=== PATIENT | male | born 1950 | race Caucasian/White ===

== ENCOUNTER → 2016-05-15 | Outpatient (CLI) | payer MEDICARE ==
--- NOTE | 2016-05-15 14:33 | XR ---
EXAMINATION TYPE: XR Hip Bilateral Complete, XR knee complete bilateral DATE OF EXAM: 05/15/2016 1:28 PM COMPARISON: NONE HISTORY: 65 year-old male bilateral hip and knee pain TECHNIQUE: 2 views each hip and 3 views each knee FINDINGS: Hips: There is mild joint space narrowing at both hips with subchondral sclerosis along the acetabular side of the joint. Marginal spurring within the right hip is also noted. No acute fracture, subluxation, or dislocation. Some degenerative vacuum seen at both SI joints with posterior lumbar fusion hardware . Knees: There is suggestion of mild tricompartmental degenerative spurring on both sides with small bilateral knee joint effusions. There appears to be mild narrowing of medial compartment joint space on the ri ght. Surgical clips along the medial aspect of the distal left thigh and knee from prior saphenous ve in graft harvesting. No acute fracture, subluxation, or dislocation. Vascular calcifications within t he popliteal arteries. IMPRESSION: 1. Hips: Mild bilateral hip osteoarthrosis, right greater than left. Additional degenerative vacuum a t the SI joints. No acute osseous abnormality seen. 2. Knees: Mild tricompartmental degenerative spurring though with suggestion of probably mild to mod erate joint space narrowing in the right medial compartment. The degree of joint space loss could be better evaluated with weightbearing view. Nonspecific small knee joint effusions. No acute osseous ab normality seen.
== END ==
LOC: RADXRMAIN 12:08
PROVIDERS: ATTEND Family Medicine
DX: M16.0 Bilateral primary osteoarthritis of hip (principal); M25.461 Effusion, right knee; M25.462 Effusion, left knee
CPT/HCPCS: 73521

== ENCOUNTER → 2016-08-14 | Outpatient (CLI) | payer MEDICARE ==
[2016-08-14 11:18] LABS: ALT 40 U/L (21-72); AST 26 U/L (17-59); Alkaline Phosphatase 81 U/L (38-126); Anion Gap 10 mmol/L; Blood Urea Nitrogen 18 mg/dL (9-20); Calcium 9.3 mg/dL (8.4-10.2); Carbon Dioxide 28 mmol/L (22-30); Chloride 100 mmol/L (98-107); Cholesterol 104 mg/dL (<200); Glucose 161 mg/dL (74-99); HDL Cholesterol 37 mg/dL (40-60); Non-African American GFR(MDRD) >60 (>60 ml/min/1.73 sqM); Potassium 4.6 mmol/L (3.5-5.1); Sodium 138 mmol/L (137-145); Total Bilirubin 0.7 mg/dL (0.2-1.3); Total Protein 6.7 g/dL (6.3-8.2); Triglycerides 96 mg/dL (<150)
[2016-08-14 15:07] LABS: Urine Creatinine 84.2 mg/dL
== END | disposition home or self-care (01) ==
LOC: LABWHC1 09:58
PROVIDERS: ATTEND Internal Medicine Endocrinology, Diabetes & Metabolism
DX: E11.65 Type 2 diabetes mellitus with hyperglycemia (principal)
CPT/HCPCS: 36415; 80053; 80061; 82043; 82570; 84443

== ENCOUNTER → 2016-10-24 | Outpatient (CLI) | payer MEDICARE ==
[2016-10-24 11:20] LABS: Blood Urea Nitrogen 19 mg/dL (9-20); Non-African American GFR(MDRD) >60 (>60 ml/min/1.73 sqM)
== END | disposition home or self-care (01) ==
LOC: LABWHC1 10:34
PROVIDERS: ATTEND Orthopaedic Surgery Orthopaedic Surgery of the Spine
DX: Z01.812 Encounter for preprocedural laboratory examination (principal); N28.9 Disorder of kidney and ureter, unspecified
CPT/HCPCS: 36415; 82565; 84520

== ENCOUNTER → 2017-06-22 | Outpatient (CLI) | payer MEDICARE ==
[2017-06-22 13:41] LABS: Blood Urea Nitrogen 16 mg/dL (9-20)
--- NOTE | 2017-06-22 15:36 | CT ---
EXAMINATION TYPE: CT cervical spine wo/w con DATE OF EXAM: 06/22/2017 COMPARISON: Plain film 12/09/2014 HISTORY: Patient complains of chronic neck pain with radiation to the extremities. CT DLP: 2101 mGycm. Automated Exposure Control for Dose Reduction was Utilized. TECHNIQUE: CT scan of the cervical spine is obtained without contrast, axial images are obtained, sa gittal and coronal reformatted images are also reviewed. FINDINGS: Cervical spine is visualized in its entirety from C1 through upper thoracic levels, demonst rates stable appearance, cervical vertebral bodies show preserved height, minimal anterolisthesis gra de 1 C3-4, there is multilevel spondylosis and loss of disc height is greatest at C3-4, C6-7. There i s extensive facet arthropathy change. There is a spinal curvature. Review of axial images shows multilevel foraminal encroachment, bilateral encroachment is present at C3-4 due to lateral extension endplate disc complex. Left-sided foraminal encroachment present at C4- 5. Bilateral foraminal encroachment present at C6-7 due to lateral extension of endplate disc complex . No significant spinal stenosis evident. Calcification present along the vertebral arteries. No abnormal enhancement. IMPRESSION: Degenerative disc disease, facet arthropathy, multilevel foraminal encroachment as descri bed.
--- NOTE | 2017-06-22 15:45 | CT ---
EXAMINATION TYPE: CT lumbar spine wo/w con DATE OF EXAM: 06/22/2017 COMPARISON: NONE HISTORY: Patient complains of chronic low back pain with radiation to the extremities. CT DLP: 4896.1 mGycm Automated exposure control for dose reduction was used. CONTRAST: CT scan of the lumbar is performed with IV Contrast, patient injected with 100 cc mL of Isovue [address] of the lumbar spine was performed. Bone and soft tissue window settings are submitted as well as coronal and sagittal reconstructions. FINDINGS: Patient shows postoperative change status post posterior fusion at L2-L5. There is mild spinal curvat ure present. Loss of disc height is present at intervertebral levels, vacuum phenomenon is also prese nt at L1-2, T12-L1. Loss of disc height also present L5-S1. Anterolisthesis grade 1 present at L1-2, retrolisthesis grade 1 L3-4. There is multilevel spondylosis present. Donor site is present at the po sterior right ilium. Multilevel laminectomy change. No abnormal enhancement following contrast administration. L1-L2: The listhesis combined with marked facet arthropathy with hypertrophic change results in sever e spinal stenosis, there may be a slight broad-based posterior disc bulge also contributing causing a trefoil appearance of the thecal sac, no significant foraminal encroachment. L2-L3: Hypertrophic changes present at the facets. No significant foraminal encroachment on the left, there may be some right-sided foraminal encroachment due to lateral extension of disc which appears to be partially calcified. Trefoil appearance of the thecal sac is present. This results in mild to m oderate spinal stenosis. L3-L4: Facet arthropathy changes present encroaching on the lateral recesses. No significant spinal s tenosis. No definite foraminal encroachment or sizable disc herniation. L4-L5: Hypertrophic changes present at the facets. No significant central canal stenosis, lateral ext ension of endplate disc complex does cause some foraminal encroachment is mild anterior mass effect o n the thecal sac. There is some laminectomy change present. L5-S1: Lateral extension endplate disc complex results in foraminal encroachment, no significant cent ral canal stenosis. IMPRESSION: Spinal stenosis is greatest at L1-2. Multilevel postop change, degenerative disc disease, facet arthr opathy and foraminal encroachment.
== END | disposition home or self-care (01) ==
LOC: RADCTMAIN 12:50
PROVIDERS: ATTEND Anesthesiology Pain Medicine
DX: M50.30 Other cervical disc degeneration, unspecified cervical region (principal); M46.92 Unspecified inflammatory spondylopathy, cervical region; M51.36 Other intervertebral disc degeneration, lumbar region; M46.96 Unspecified inflammatory spondylopathy, lumbar region; M48.061 Spinal stenosis, lumbar region without neurogenic claudication; Z98.890 Other specified postprocedural states
CPT/HCPCS: 82565; 84520; 72127; 72133; 36415; Q9967

== ENCOUNTER → 2018-04-26 | Outpatient (CLI) | payer MEDICARE ==
[2018-04-26 19:49] LABS: Albumin 4.1 g/dL (3.80-4.90); Albumin/Globulin Ratio 1.71 (1.60-3.17); Anion Gap 5.2 mmol/L (4.00-12.00); Calcium 9.3 mg/dL (8.7-10.3); Carbon Dioxide 30.8 mmol/L (21.6-31.8); Globulin 2.4 g/dL (1.6-3.3); LDL Cholesterol,Calculated 104.4 mg/dL (0.0-131.0); Potassium 5.4 mmol/L (3.5-5.5); Total Bilirubin 0.6 mg/dL (0.3-1.2); Total Protein 6.5 g/dL (6.2-8.2); VLDL Calculation 22.6 mg/dL (5.00-40.00)
[2018-04-26 22:33] LABS: Hemoglobin A1C 6.8 % (4.0-6.0)
== END ==
LOC: LABWHC1 11:21
PROVIDERS: ATTEND Internal Medicine Endocrinology, Diabetes & Metabolism
DX: E11.65 Type 2 diabetes mellitus with hyperglycemia (principal)
CPT/HCPCS: 36415; 80053; 80061; 82043; 82570; 83036; 84443

== ENCOUNTER 2023-01-14 13:25 | Observation (INO) | payer MEDICARE ==
--- NOTE | 2023-01-14 14:48 | ED ---
General Adult HPI - General Chief complaint: Shortness of Breath Stated complaint: sob, coughing, congestion Time Seen by Provider: 01/14/23 14:31 Source: patient, RN notes reviewed, old records reviewed Mode of arrival: ambulatory Limitations: no limitations - History of Present Illness Initial comments: 72-year-old male with increased dyspnea. Patient has had chronic cough daily with some chest congestion. He's noted worsening bilateral lower extremity swelling and worsening dyspnea. He was started on 40 mg of Lasix by the primary care without improvement. No central chest pain. No fever. - Related Data Home Medications Medication Instructions Recorded Confirmed Aspirin 325 mg PO QAM 06/24/13 06/03/15 Mometasone Furoate [Nasonex] 1 spray NASAL DAILY 06/24/13 06/03/15 allopurinoL [Zyloprim] 100 mg PO DAILY 06/24/13 06/03/15 atenoloL [Tenormin] 25 mg PO QAM 06/24/13 06/03/15 oxyCODONE ER [OxyCONTIN] 80 mg PO BID 06/24/13 06/03/15 Atorvastatin [Lipitor] 80 mg PO DAILY 05/05/15 06/03/15 Baclofen [Lioresal] 10 mg PO TID 05/05/15 06/03/15 Desloratadine/Pseudoephedrine 1 tab PO BID 05/05/15 06/03/15 [Clarinex-D 12 Hour Tablet] Diazepam [Valium] 20 mg PO HS PRN 05/05/15 06/03/15 Goldbond Diabetic Cream 1 applicate TOPICAL TID 05/05/15 06/03/15 Insulin Aspart [Novolog] 100 unit SQ-PUMP CONTINUOUS 05/05/15 06/03/15 Losartan Potassium [Cozaar] 100 mg PO QAM 05/05/15 06/03/15 Magnesium 200 mg PO BID 05/05/15 06/03/15 rOPINIRole HCL [Requip] 3 mg PO HS 05/05/15 06/03/15 Cholecalciferol [Vitamin D3] 1,000 unit PO DAILY 05/27/15 06/03/15 Fluticasone Nasal [place] [Flonase 1 spray EA NOSTRIL DAILY 05/27/15 06/03/15 Nasal [place]] Previous Rx's Medication Instructions Recorded Meclizine [Antivert] 25 mg PO TID #21 tab 05/30/15 Ondansetron Odt [Zofran ODT] 4 mg PO Q8HR PRN #10 tab 05/30/15 Doxycycline Hyclate 100 mg PO BID #10 tab 06/03/15 HYDROcodone/APAP 10-325MG [[place] 1 - 2 tab PO Q4-6H PRN #90 tab 06/04/15 10-325] Allergies Allergy/AdvReac Type Severity Reaction Status Date / Time No Known Allergies Allergy Verified 01/14/23 13:56 Review of Systems ROS Statement: Those systems with pertinent positive or pertinent negative responses have been documented in the HPI. ROS Other: All systems not noted in ROS Statement are negative. Past Medical History Past Medical History: Diabetes Mellitus, Hypertension Additional Past Medical History / Comment(s): vertigo, insulin pump Last Myocardial Infarction Date:: 1989 History of Any Multi-Drug Resistant Organisms: None Reported Past Surgical History: Appendectomy, Back Surgery, Coronary Bypass/CABG, Joint Replacement, Orthopedic Surgery, Tonsillectomy Additional Past Surgical History / Comment(s): HAS HAD ATTEMPTED SEVERAL COLONOSCOPIES IN THE PAST MONTHS, HOWEVER, BOWEL WAS NOT TOTALLY CLEAN. 06-03-15 total rt shoulder Past Anesthesia/Blood Transfusion Reactions: No Reported Reaction Past Psychological History: No Psychological Hx Reported Smoking Status: Former smoker Past Alcohol Use History: Occasional Past Drug Use History: None Reported - Past Family History Mother Family Medical History: Cancer Additional Family Medical History / Comment(s): breast bowel liver ca Father Family Medical History: Myocardial Infarction ([place]) Additional Family Medical History / Comment(s): first mi at age 32 and w/3rd mi at age 44 General Exam Limitations: no limitations General appearance: alert, in no apparent distress Head exam: Present: atraumatic, normocephalic Eye exam: Present: normal appearance, PERRL ENT exam: Present: normal exam Neck exam: Present: normal inspection. Absent: tenderness, meningismus Respiratory exam: Present: wheezes, decreased breath sounds. Absent: respiratory distress Cardiovascular Exam: Present: regular rate, normal rhythm GI/Abdominal exam: Present: soft. Absent: distended, tenderness, guarding Extremities exam: Present: pedal edema Neurological exam: Present: alert, oriented X3, CN II-XII intact. Absent: motor sensory deficit Psychiatric exam: Present: normal affect, normal mood Skin exam: Present: warm, dry, intact Course Vital Signs 01/14/23 13:53 Temperature 98.4 F Pulse Rate 77 Respiratory 20 Rate Blood Pressure 109/67 O2 Sat by Pulse 95 Oximetry Medical Decision Making - Medical Decision Making Was pt. sent in by a medical professional or institution (CELESTINO Ayala, SCRATCHER TENDER, urgent care, hospital, or assisted...) When possible be specific @ -No Did you speak to anyone other than the patient for history (EMS, parent, family, police, friend...)? What history was obtained from this source @ -No Did you review nursing and triage notes (agree or disagree)? Why? @ -I reviewed and agree with nursing and triage notes Were old charts reviewed (outside hosp., previous admission, EMS record, old EKG, old radiological studies, urgent care reports/EKG's, assisted records)? Report findings @ -No old charts were reviewed Differential Diagnosis (chest pain, altered mental status, abdominal pain women, abdominal pain men, vaginal bleeding, weakness, fever, dyspnea, syncope, headache, dizziness, GI bleed, back pain, seizure, CVA, palpatations, mental health, musculoskeletal)? @ -Differential Dyspnea: Coronary syndrome, arrhythmia, tamponade, asthma, COPD, pulmonary embolism, pneumonia, pneumothorax, pulmonary effusion, anaphylaxis, diabetic ketoacidosis, flailed chest, pulmonary contusion, diaphragmatic rupture, anemia, neuromuscular, this is not meant to be an all-inclusive list. EKG interpreted by me (3pts min.). @ -Sinus rhythm with first-degree AV block, low voltage no ST segment elevation rate of 81, PA interval 222, QRS duration 113 X-rays interpreted by me (1pt min.). @ -[Chest x-ray showing bilateral pulmonary edema consistent with CHF. CT interpreted by me (1pt min.). @ -None done U/S interpreted by me (1pt. min.). @ -None done What testing was considered but not performed or refused? (CT, X-rays, U/S, labs)? Why? @ -None What meds were considered but not given or refused? Why? @ -None Did you discuss the management of the patient with other professionals (professionals i.e. CELESTINO Ayala, SCRATCHER TENDER, lab, RT, psych nurse, social problems specialist, yard pipe grader, teacher, college service officer, case repairer)? Give summary @ -No Was smoking cessation discussed for >3mins.? @ -No Was critical care preformed (if so, how long)? @ -No Were there social determinants of health that impacted care today? How? (Homelessness, low income, unemployed, alcoholism, drug addiction, transportation, low edu. Level, literacy, decrease access to med. care, detention, rehab)? @ -No Was there de-escalation of care discussed even if they declined (Discuss DNR or withdrawal of care, Hospice)? DNR status @ -No What co-morbidities impacted this encounter? (DM, HTN, Smoking, COPD, CAD, Cancer, CVA, ARF, Chemo, Hep., AIDS, mental health diagnosis, sleep apnea, morbid obesity)? @ -CHF, coronary artery disease Was patient admitted / discharged? Hospital course, mention meds given and route, prescriptions, significant lab abnormalities, going to OR and other pertinent info. @ -[72-year-old male with increased dyspnea, chronic cough. Patient has i ncreased bilateral lower extremity edema. Oral Lasix has not improved his symptoms. Chest x-ray concerning for CHF. Patient BNP is elevated at 1400 and he has a minimally elevated troponin at 0.07 suspect this is from CHF. This level will be trended. He will be admitted for IV diuresis and echo as well as cardiology consultation. Case discussed with Dr. Sahni who will admit. Undiagnosed new problem with uncertain prognosis? @ -No Drug Therapy requiring intensive monitoring for toxicity (Heparin, Nitro, Insulin, Cardizem)? @ -No Were any procedures done? @ -No Diagnosis/symptom? @ CHF Acute, or Chronic, or Acute on Chronic? @ Acute Uncomplicated (without systemic symptoms) or Complicated (systemic symptoms)? @ -default Side effects of treatment? @ -No Exacerbation, Progression, or Severe Exacerbation? @ -No Poses a threat to life or bodily function? How? (Chest pain, [place], [place], pneumonia, PE, COPD, DKA, ARF, appy, cholecystitis, CVA, Diverticulitis, Homicidal, Suicidal, threat to staff... and all critical care pts) @ -yes, respiratory failure - Lab Data Result diagrams: 01/14/23 15:02 01/14/23 15:02 Lab Results 01/14/23 01/14/23 01/14/23 Range/Units 14:37 15:02 15:02 WBC 8.4 (3.8-10.6) k/uL RBC 4.53 (4.30-5.90) m/uL Hgb 13.8 (13.0-17.5) gm/dL Hct 42.4 (39.0-53.0) % MCV 93.8 (80.0-100.0) fL MCH 30.5 (25.0-35.0) pg MCHC 32.5 (31.0-37.0) g/dL RDW 13.8 (11.5-15.5) % Plt Count 171 (150-450) k/uL MPV 7.5 Neutrophils % 74 % Lymphocytes % 12 % Monocytes % 10 % Eosinophils % 1 % Basophils % 0 % Neutrophils # 6.2 (1.3-7.7) k/uL Lymphocytes # 1.0 (1.0-4.8) k/uL Monocytes # 0.8 (0-1.0) k/uL Eosinophils # 0.1 (0-0.7) k/uL Basophils # 0.0 (0-0.2) k/uL Hypochromasia Slight PT 11.9 (10.0-12.5) sec INR 1.1 (<1.2) APTT 27.0 (22.0-30.0) sec Sodium (137-145) mmol/L Potassium (3.5-5.1) mmol/L Chloride (98-107) mmol/L Carbon Dioxide (22-30) mmol/L Anion Gap mmol/L BUN (9-20) mg/dL Creatinine (0.66-1.25) mg/dL Est GFR (CKD-EPI)AfAm (>60 ml/min/1.73 sqM) Est GFR (CKD-EPI)NonAf (>60 ml/min/1.73 sqM) Glucose (74-99) mg/dL Plasma Lactic Acid Xander (0.7-2.0) mmol/L Calcium (8.4-10.2) mg/dL Magnesium (1.6-2.3) mg/dL Total Bilirubin (0.2-1.3) mg/dL AST (17-59) U/L ALT (4-49) U/L Alkaline Phosphatase (38-126) U/L Troponin I (0.000-0.034) ng/mL NT-Pro-B Natriuret Pep pg/mL Total Protein (6.3-8.2) g/dL Albumin (3.5-5.0) g/dL Influenza Type A (PCR) Not Detected (Not Detectd) Influenza Type B (PCR) Not Detected (Not Detectd) RSV (PCR) Not Detected (Not Detectd) SARS-CoV-2 (PCR) Not Detected (Not Detectd) 01/14/23 01/14/23 01/14/23 Range/Units 15:02 15:02 15:02 WBC (3.8-10.6) k/uL RBC (4.30-5.90) m/uL Hgb (13.0-17.5) gm/dL Hct (39.0-53.0) % MCV (80.0-100.0) fL MCH (25.0-35.0) pg MCHC (31.0-37.0) g/dL RDW (11.5-15.5) % Plt Count (150-450) k/uL MPV Neutrophils % % Lymphocytes % % Monocytes % % Eosinophils % % Basophils % % Neutrophils # (1.3-7.7) k/uL Lymphocytes # (1.0-4.8) k/uL Monocytes # (0-1.0) k/uL Eosinophils # (0-0.7) k/uL Basophils # (0-0.2) k/uL Hypochromasia PT (10.0-12.5) sec INR (<1.2) APTT (22.0-30.0) sec Sodium 136 L (137-145) mmol/L Potassium 4.5 (3.5-5.1) mmol/L Chloride 96 L (98-107) mmol/L Carbon Dioxide 31 H (22-30) mmol/L Anion Gap 9 mmol/L BUN 18 (9-20) mg/dL Creatinine 0.98 (0.66-1.25) mg/dL Est GFR (CKD-EPI)AfAm 88 (>60 ml/min/1.73 sqM) Est GFR (CKD-EPI)NonAf 76 (>60 ml/min/1.73 sqM) Glucose 106 H (74-99) mg/dL Plasma Lactic Acid Xander 0.9 (0.7-2.0) mmol/L Calcium 8.9 (8.4-10.2) mg/dL Magnesium 1.9 (1.6-2.3) mg/dL Total Bilirubin 1.0 (0.2-1.3) mg/dL AST 66 H (17-59) U/L ALT 69 H (4-49) U/L Alkaline Phosphatase 133 H (38-126) U/L Troponin I 0.070 H* (0.000-0.034) ng/mL NT-Pro-B Natriuret Pep 1400 pg/mL Total Protein 7.0 (6.3-8.2) g/dL Albumin 3.7 (3.5-5.0) g/dL Influenza Type A (PCR) (Not Detectd) Influenza Type B (PCR) (Not Detectd) RSV (PCR) (Not Detectd) SARS-CoV-2 (PCR) (Not Detectd) Disposition Clinical Impression: Congestive heart failure Disposition: ADMITTED IP TO THIS HOSP Condition: Stable Is patient prescribed a controlled substance at d/c from ED?: No Referrals: Olvin Palmer DO [Primary Care Provider] - 1-2 days Time of Disposition: 16:26
[2023-01-14 15:25] LABS: Basophils % (A) 0 %; Eosinophils # (A) 0.1 k/uL (0-0.7); Eosinophils % (A) 1 %; HCT 42.4 % (39.0-53.0); HGB 13.8 gm/dL (13.0-17.5); Hypochromasia Slight; Lymphocytes % (A) 12 %; MCH 30.5 pg (25.0-35.0); MCHC 32.5 g/dL (31.0-37.0); MCV 93.8 fL (80.0-100.0); Mean Platelet Volume 7.5; Monocytes # (A) 0.8 k/uL (0-1.0); Monocytes % (A) 10 %; Neutrophils # (A) 6.2 k/uL (1.3-7.7); Neutrophils % (A) 74 %; Platelet Count 171 k/uL (150-450); RBC 4.53 m/uL (4.30-5.90); RDW 13.8 % (11.5-15.5); WBC 8.4 k/uL (3.8-10.6)
[2023-01-14 15:32] LABS: INR 1.1 (<1.2); Prothrombin Time 11.9 sec (10.0-12.5)
[2023-01-14 15:35] LABS: ALT 69 U/L (4-49); AST 66 U/L (17-59); African American GFR (CKD) 88 (>60 ml/min/1.73 sqM); Albumin 3.7 g/dL (3.5-5.0); Alkaline Phosphatase 133 U/L (38-126); Anion Gap 9 mmol/L; Blood Urea Nitrogen 18 mg/dL (9-20); Calcium 8.9 mg/dL (8.4-10.2); Carbon Dioxide 31 mmol/L (22-30); Chloride 96 mmol/L (98-107); Glucose 106 mg/dL (74-99); Magnesium 1.9 mg/dL (1.6-2.3); Non-African American GFR(CKD) 76 (>60 ml/min/1.73 sqM); Potassium 4.5 mmol/L (3.5-5.1); Sodium 136 mmol/L (137-145)
[2023-01-14 15:43] LABS: NT-Pro-B-Type Natriuretic Pept 1400 pg/mL
[2023-01-14] MEDS ORDERED: FUROSEMIDE 10 MG/ML 4 ML VIAL IV STA (15:56)
[2023-01-14] MEDS ORDERED: ACETAMINOPHEN TAB 325 MG TAB PO PRN (16:22)
[2023-01-14] MEDS ORDERED: NALOXONE 0.4 MG/ML 1 ML VIAL IV PRN (16:22)
[2023-01-14] MEDS ORDERED: ASPIRIN 325 MG TAB PO STA (16:22)
--- NOTE | 2023-01-14 16:28 | XR ---
EXAMINATION TYPE: XR chest 2V DATE OF EXAM: 01/14/2023 2:17 PM CLINICAL INDICATION:Male, 72 years old with history of TERI; [facility] COMPARISON: 12/26/2021 TECHNIQUE: XR chest 2V. Frontal PA and lateral views of the chest. FINDINGS: Lines/Tubes: None. Heart/mediastinum: Cardiomediastinal silhouette margins are partially obscured. Heart size is mildly to moderately enlarged. Aorta appears mildly tortuous. Single-lead cardiac conduction device overl cheryl the left hemithorax with lead projecting over the right ventricle. Sternotomy wires, second from the top broken but not significantly displaced. Pulmonary vascularity: Pulmonary vascular congestion. Increased interstitial markings can be seen wit h edema or pneumonitis, superimposed on chronic changes. Lungs/Pleura: Lungs appear hyperinflated with interstitial coarsening, findings suggestive of COPD/em physema. There is no evidence of pleural effusion, focal consolidation, or pneumothorax. Musculoskeletal: No acute osseous abnormality demonstrated in the limits of the exam. Mild degenerat tom changes. Other findings: None. IMPRESSION: Cardiomegaly and postoperative changes. Pulmonary vascular congestion with some interstitial edema/pneumonitis, superimposed on chronic tristan es. Correlate for mild CHF.
[2023-01-14 18:08] LABS: Glucose,Whole Blood 209 mg/dL (70-110)
[2023-01-14] MEDS: FUROSEMIDE 10 MG/ML 4 ML VIAL IV SCH (20:14)
[2023-01-14] MEDS ORDERED: ALBUTEROL HFA INHALER INHALATION PRN (20:41)
[2023-01-14] MEDS ORDERED: INSULIN LISPRO (For Pump) 100 UNIT/ML VIAL SQ-PUMP SCH (20:45)
[2023-01-14] MEDS ORDERED: DEXTROSE 50% SYRINGE 50 ML IVP PRN ×2 (20:56)
--- NOTE | 2023-01-14 21:03 | P.HPIM ---
History of Present Illness H&P Date: 01/14/23 Chief Complaint: TERI Patient is a 72-year-old male with a past medical history of coronary artery disease close post quadruple CABG, hypertension, diabetes type 2 insulin-depe ndent insulin pump, history of back surgery and chronic pain, restless leg syndrome and prior history of smoking presents to ER with complaints of cough, difficulty breathing and also worsening leg swelling for the past 2 weeks. Patient states that he has been having exertional dyspnea units walking to the bathroom. Patient has been having symptoms for the past 2 weeks. Patient was seen by his primary care physician and was started on Lasix 40 mg daily but without much improvement. Patient denies any complaints of chest pain. No nausea vomiting or diaphoresis. No dizziness or lightheadedness. No fever. No sputum production. Denies any recent illnesses Patient follows with his infrastructure solutions architect at [facility]. Patient has not seen his infrastructure solutions architect recently. Chest x-ray on admission showed cardiomegaly and postoperative changes. Pulmonary vascular congestion with some interstitial edema/pneumonitis superimposed on chronic changes. Correlate for mild CHF. EKG showed sinus rhythm with first-degree AV block. Low QRS voltage. Laboratory data showed WBC 8.4 hemoglobin 13.8 and platelets 171, sodium 136 potassium 4.5 chloride 96 bicarb is 31 BUN 18 and creatinine 0.98 and blood sugar is 106 AST 66 ALT 69 alk phos 133 troponin 0.070 and 0.070 and proBNP 1400 albumin 3.7 Influenza A, B, RSV and COVID-19 PCR not detected. Review of Systems Constitutional: Patient denies any fever or chills . no Generalized weakness. Abdomen: Patient denied any nausea or vomiting or abd. pain Cardiovascular: Patient denies any chest pain. Patient does have short of breath no palpitations. Positive for leg swelling. Respiratory: patient complains of cough. No sputum production. Patient does have shortness of breath. Neurologic: Patient denied any numbness or tingling or headache. Musculoskeletal: Patient denies any complaints of joint swelling or deformity. Skin: Negative Psychiatric: Negative Endocrine: No heat or cold intolerance. recent weight gain. Genitourinary: No dysuria or hematuria. All other 14 point ROS negative except the above Past Medical History Past Medical History: Diabetes Mellitus, Hypertension Additional Past Medical History / Comment(s): vertigo, insulin pump Last Myocardial Infarction Date:: 1989 History of Any Multi-Drug Resistant Organisms: None Reported Past Surgical History: Appendectomy, Back Surgery, Coronary Bypass/CABG, Joint Replacement, Orthopedic Surgery, Tonsillectomy Additional Past Surgical History / Comment(s): HAS HAD ATTEMPTED SEVERAL CO LONOSCOPIES IN THE PAST MONTHS, HOWEVER, BOWEL WAS NOT TOTALLY CLEAN. 06-03-15 total rt shoulder Past Anesthesia/Blood Transfusion Reactions: No Reported Reaction Past Psychological History: No Psychological Hx Reported Smoking Status: Former smoker Past Alcohol Use History: Occasional Past Drug Use History: None Reported - Past Family History Mother Family Medical History: Cancer Additional Family Medical History / Comment(s): breast bowel liver ca Father Family Medical History: Myocardial Infarction ([place]) Additional Family Medical History / Comment(s): first mi at age 32 and w/3rd mi at age 44 Medications and Allergies Home Medications Medication Instructions Recorded Confirmed Type allopurinoL [Zyloprim] 100 mg PO DAILY 06/24/13 01/14/23 History Atorvastatin [Lipitor] 80 mg PO DAILY 05/05/15 01/14/23 History Baclofen [Lioresal] 10 mg PO TID 05/05/15 01/14/23 History Diazepam [Valium] 10 mg PO BID PRN 05/05/15 01/14/23 History Losartan Potassium [Cozaar] 100 mg PO DAILY 05/05/15 01/14/23 History rOPINIRole HCL [Requip] 3 mg PO BID 05/05/15 01/14/23 History Albuterol Inhaler [Ventolin Hfa 1 - 2 puff INHALATION RT-Q6H PRN 01/14/23 01/14/23 History Inhaler] Clopidogrel [Plavix] 75 mg PO DAILY 01/14/23 01/14/23 History Furosemide [Lasix] 40 mg PO DAILY 01/14/23 01/14/23 History INSULIN LISPRO (For Pump) [humaLOG 0.01 units SQ-PUMP CONTINUOUS 01/14/23 01/14/23 History (For Pump)] Insulin Lispro [humaLOG Kwikpen] 1 - 25 unit SQ TID-W/MEALS PRN 01/14/23 01/14/23 History LORazepam [Ativan] 1 mg PO BID PRN 01/14/23 01/14/23 History Magnesium Oxide [Salomon] 500 mg PO BID 01/14/23 01/14/23 History Mupirocin Calcium 2% Cream 1 applic TOPICAL BID PRN 01/14/23 01/14/23 History [Bactroban 2% Cream] Pentoxifylline [TRENtal] 400 mg PO AC-BID 01/14/23 01/14/23 History Ranolazine [Ranexa] 500 mg PO BID 01/14/23 01/14/23 History Spironolactone [Aldactone] 25 mg PO DAILY 01/14/23 01/14/23 History Tamsulosin [Flomax] 0.4 mg PO BID 01/14/23 01/14/23 History Triamcinolone 0.1% Lotion [Kenalog 1 applic TOPICAL BID PRN 01/14/23 01/14/23 History 0.1% Lotion] Allergies Allergy/AdvReac Type Severity Reaction Status Date / Time No Known Allergies Allergy Verified 01/14/23 18:25 Physical Exam Vitals: Vital Signs Temp Pulse Resp BP Pulse Ox 01/14/23 13:53 98.4 F 77 20 109/67 95 Intake and Output 01/14/23 01/14/23 01/14/23 06:59 14:59 22:59 Other: Weight 151.046 kg PHYSICAL EXAMINATION: Patient is lying in the bed comfortably, no acute distress, awake alert and oriented.. HEENT: Normocephalic. Neck is supple. Pupils reactive. Nostrils clear. Oral cavity is moist. Neck reveals no JVD, carotid bruits, or thyromegaly. CHEST EXAMINATION: Trachea is central. Symmetrical expansion. Scattered coarse sounds. No wheezing. Nonlabored breathing.. CARDIAC: Normal S1, S2 with no gallops. No murmurs ABDOMEN: Soft. Bowel sounds present. Nontender. No organomegaly. No abdominal bruits. Extremities: Bilateral lower extremity 3+ edema. No clubbing or cyanosis Neurologically awake, alert, oriented x3 with well-coordinated movements. No focal deficits noted Skin: No rash or skin lesions. Psychiatric: Coperative. Nonsuicidal, Musculoskeletal: No joint swelling or deformity. Normal range of motion. Results CBC & Chem 7: 01/14/23 15:02 01/14/23 15:02 Labs: Abnormal Lab Results - Last 24 Hours (Table) 01/14/23 01/14/23 Range/Units 15:02 15:02 Sodium 136 L (137-145) mmol/L Chloride 96 L (98-107) mmol/L Carbon Dioxide 31 H (22-30) mmol/L Glucose 106 H (74-99) mg/dL AST 66 H (17-59) U/L ALT 69 H (4-49) U/L Alkaline Phosphatase 133 H (38-126) U/L Troponin I 0.070 H* (0.000-0.034) ng/mL Thrombosis Risk Factor Assmnt - DVT/VTE Prophylaxis DVT/VTE Prophylaxis: Pharmacologic Prophylaxis ordered Assessment and Plan Assessment: Acute CHF. EF not known. Chest x-ray showed vascular congestion elevated BNP level and leg swelling. Worsening shortness of breath and exertional dyspnea and cough secondary to above Mildly elevated troponin level Transaminitis Coronary artery history of quadruple CABG Diabetes type 2 insulin-dependent on insulin pump Hypertension Chronic pain History of gout Restless leg syndrome Morbid obesity BMI 45.2 DVT prophylaxis with heparin subcu Plan: Patient will be continued on daily monitoring. Continue with IV Lasix 40 mg twice daily and monitor renal function. Serial troponins. 2D echocardiogram was ordered. Ultrasound liver due to elevated liver enzymes Continue with insulin pump and insulin sliding scale. Continue with home medication including recoup and follow-up closely. Cardiology was consulted for evaluation. Time with Patient: Greater than 30
[2023-01-14] MEDS: RANOLAZINE 500 MG TAB.ER.12H PO SCH (21:07)
[2023-01-14] MEDS: TAMSULOSIN 0.4 MG CAP.ER.24H PO SCH (21:08)
[2023-01-14] MEDS: MAGNESIUM OXIDE 400 MG TAB PO SCH (21:08)
[2023-01-14] MEDS: BACLOFEN 10 MG TAB PO SCH (21:08)
[2023-01-14] MEDS: INSULIN ASPART (NovoLOG) 100 UNIT/ML VIAL SQ SCH (21:10)
[2023-01-14] MEDS: HEPARIN SODIUM,PORCINE 5,000 UNIT/ML 1 ML VIAL SQ SCH (23:35)
[2023-01-15 04:56] VITALS: TEMP 97.5
[2023-01-15 05:58] LABS: Glucose,Whole Blood 143 mg/dL (70-110)
[2023-01-15] MEDS: PENTOXIFYLLINE 400 MG TABLET.ER PO SCH ×2 (06:41→09:17)
[2023-01-15 06:43] LABS: HCT 42.3 % (39.0-53.0); HGB 13.6 gm/dL (13.0-17.5); Hypochromasia Slight; MCH 29.9 pg (25.0-35.0); MCHC 32.1 g/dL (31.0-37.0); MCV 93.1 fL (80.0-100.0); Mean Platelet Volume 7.5; Platelet Count 164 k/uL (150-450); RBC 4.55 m/uL (4.30-5.90); RDW 13.9 % (11.5-15.5); WBC 6.1 k/uL (3.8-10.6)
[2023-01-15] MEDS: INSULIN ASPART (NovoLOG) 100 UNIT/ML VIAL SQ SCH (06:52)
[2023-01-15 06:53] LABS: Band Neutrophils % 2 %; Lymphocytes # (M) 1.46 k/uL (1.0-4.8); Monocytes # (M) 0.67 k/uL (0-1.0); Neutrophils % (M) 63 %; Nucleated Red Blood Cells 0 /100 WBC (0-0); Total Cells Counted 100
[2023-01-15 06:59] LABS: ALT 59 U/L (4-49); AST 48 U/L (17-59); African American GFR (CKD) 89 (>60 ml/min/1.73 sqM); Albumin 3.3 g/dL (3.5-5.0); Alkaline Phosphatase 122 U/L (38-126); Bilirubin, Delta 0.1 mg/dL (0.0-0.2); Bilirubin,Unconjugated 0.6 mg/dL (0.0-1.1); Blood Urea Nitrogen 19 mg/dL (9-20); Calcium 8.7 mg/dL (8.4-10.2); Carbon Dioxide 30 mmol/L (22-30); Chloride 98 mmol/L (98-107); Glucose 158 mg/dL (74-99); Non-African American GFR(CKD) 77 (>60 ml/min/1.73 sqM); Potassium 4.3 mmol/L (3.5-5.1); Total Bilirubin 0.7 mg/dL (0.2-1.3); Total Protein 6.5 g/dL (6.3-8.2)
[2023-01-15 07:00] LABS: Anion Gap 7 mmol/L; Sodium 135 mmol/L (137-145)
--- NOTE | 2023-01-15 07:24 | US ---
EXAMINATION TYPE: US liver DATE OF EXAM: 01/14/2023 COMPARISON: NONE CLINICAL INDICATION: Male, 72 years old with history of elevated liver enzymes; Elevated LFT's TECHNIQUE: Multiple sonographic images of the right upper quadrant are obtained. FINDINGS: EXAM MEASUREMENTS: Liver Length: 20.5 cm Gallbladder Wall: 0.4 cm CBD: 0.3 cm Right Kidney: 10.7 x 6.5 x 6.3 cm MEAT PROCESSOR NOTES: Morbidly obese pt, difficulty ambulating, difficult exam Pancreas: Obscured by bowel gas Liver: Enlarged, mildly heterogeneous Gallbladder: Entire lumen appeared filled with gallstones, wall borderline thickened. No surrounding fluid. Evidence for sonographic Sparrow's sign: No CBD: wnl Right Kidney: No evidence of hydro, lower pole gassed out IMPRESSION: 1. Prominent exam limitations as above. 2. Hepatomegaly at 20.5 cm. 3. The gallbladder appears to be packed with stones. Borderline wall thickening may reflect chronic c holecystitis. Sonographic Sparrow sign is reported absent. If further imaging assessment of the gallbl adder is desired, HIDA scan can be considered. 4. No biliary ductal dilatation.
[2023-01-15] MEDS ORDERED: LOSARTAN 50 MG TAB PO SCH (09:00)
[2023-01-15] MEDS ORDERED: SPIRONOLACTONE 25 MG TAB PO SCH (09:00)
[2023-01-15] MEDS ORDERED: CLOPIDOGREL 75 MG TAB PO SCH (09:00)
[2023-01-15] MEDS ORDERED: ATORVASTATIN 80 MG TAB PO SCH (09:00)
[2023-01-15] MEDS ORDERED: allopurinoL 100 MG TAB PO SCH (09:00)
[2023-01-15] MEDS ORDERED: ASPIRIN 81 MG PO SCH (09:00)
[2023-01-15] MEDS: TAMSULOSIN 0.4 MG CAP.ER.24H PO SCH (09:17)
[2023-01-15] MEDS: HEPARIN SODIUM,PORCINE 5,000 UNIT/ML 1 ML VIAL SQ SCH (09:17)
[2023-01-15] MEDS: FUROSEMIDE 10 MG/ML 4 ML VIAL IV SCH (09:17)
[2023-01-15] MEDS: RANOLAZINE 500 MG TAB.ER.12H PO SCH (09:17)
[2023-01-15] MEDS: MAGNESIUM OXIDE 400 MG TAB PO SCH (09:17)
[2023-01-15] MEDS: BACLOFEN 10 MG TAB PO SCH (09:17)
[2023-01-15 09:25] VITALS: BP 148/83; PULSE 70; RESP 20
--- NOTE | 2023-01-15 09:58 | P.CRDCN ---
History of Present Illness History of present illness: HISTORY OF PRESENT ILLNESS: This is a 72-year-old male with a past medical history significant for coronary artery disease with previous CABG, hypertension, hyperlipidemia, diabetes, back surgery with chronic pain, morbid obesity, and former nicotine dependence. Valeria elizabeth follows with a technical planner out of [facility]. We have been asked to see the patient in consultation for congestive heart failure. Patient examined at the bedside. Patient states he was started on an increased dose of lasix a few days ago due to increased lower extremity edema and shortness of breath. He continued to feel SOB despite increased Lasix. He also reports a frequent cough. Denies fever or chills. He is unsure of his last stress test or cardiac cath. He is unsure if he has a history of cardiomyopathy. He is currently sitting up in the chair and does not appear to be in distress. Vital signs are stable. * EKG reveals sinus mechanism with no signs of acute ischemia * Chest xray cardiomegaly and postoperative changes. Pulmonary vascular congestion with some interstitial edema, superimposed on chronic changes. Correlate for mild CHF. * Laboratory data: Troponin 0.070. 0.070. 0.052. ProBNP 1400. * Current home cardiac medications include Aldactone 25 mg daily, Plavix 75 mg daily, Ranexa 500 mg twice a day, Lasix 40 mg daily, losartan 100 mg daily, Lipitor 80 mg daily REVIEW OF SYSTEMS: At the time of my exam: CONSTITUTIONAL: Denies fever or chills. HEENT: Denies blurred vision, vision changes, or eye pain. Denies hemoptysis CARDIOVASCULAR: Denies chest pain. Denies orthopnea. Denies PND. Denies palpitations RESPIRATORY: Denies shortness of breath. GASTROINTESTINAL: Denies abdominal pain. Denies nausea or vomiting. HEMATOLOGIC: Denies bleeding disorders. GENITOURINARY: Denies any blood in urine. SKIN: Denies pruitis. Denies rash. PHYSICAL EXAM: VITAL SIGNS: Reviewed. GENERAL: Well-developed in no acute distress. HEENT: Head is normocephalic. Pupils are equal, round. Sclerae anicteric. Mucous membranes of the mouth are moist. Neck supple. No JVD or thyromegaly LUNGS: Respirations even and unlabored. Lungs essentially clear to auscultation bilaterally. HEART: Regular rate and rhythm. S1 and S2 heard. ABDOMEN: Soft. Nondistended. Nontender. EXTREMITIES: Normal range of motion. No clubbing or cyanosis. Peripheral pulses intact. 3+ bilateral lower extremity edema up into the thighs with mild erythema noted. NEUROLOGIC: Awake and alert. Oriented x 3. ASSESSMENT: Shortness of breath Acute heart failure, type unknown, echo pending Coronary artery disease with previous CABG 4 vessels Hypertension Hyperlipidemia Diabetes History of back surgery with chronic pain Morbid obesity Former nicotine dependence History of COPD History of Asbestos History of AICD implantation with previous ICD discharge (about 5 years ago per patient) PLAN: Obtain 2-D echo to assess cardiac structure and function Resume home cardiac medications Continue IV Lasix 40 mg every 12 hours Daily weights, accurate I&O, and monitor kidney function Patient is adamant about being discharged home today. Patient instructed on risks of leaving AMA and patient verbalized understanding. Further recommendations pending patient's course Nurse practitioner note has been reviewed by physician. Signing provider agrees with the documented findings, assessment, and plan of care. Past Medical History Past Medical History: Diabetes Mellitus, Hypertension Additional Past Medical History / Comment(s): vertigo, insulin pump Last Myocardial Infarction Date:: 1989 History of Any Multi-Drug Resistant Organisms: None Reported Past Surgical History: Appendectomy, Back Surgery, Coronary Bypass/CABG, Joint R eplacement, Orthopedic Surgery, Tonsillectomy Additional Past Surgical History / Comment(s): HAS HAD ATTEMPTED SEVERAL COLONOSCOPIES IN THE PAST MONTHS, HOWEVER, BOWEL WAS NOT TOTALLY CLEAN. 06-02- total rt shoulder Past Anesthesia/Blood Transfusion Reactions: No Reported Reaction Past Psychological History: No Psychological Hx Reported Smoking Status: Former smoker Past Alcohol Use History: Occasional Additional Past Alcohol Use History / Comment(s): STARTED SMOKING AT AGE 14 SMOKED ON AND OFF QUIT 2008 / SMOKED 1PPD Past Drug Use History: None Reported Additional Drug Use History / Comment(s): SMOKES AT NIGHT - Past Family History Mother Family Medical History: Cancer Additional Family Medical History / Comment(s): breast bowel liver ca Father Family Medical History: Myocardial Infarction ([place]) Additional Family Medical History / Comment(s): first mi at age 32 and w/3rd mi at age 44 Medications and Allergies Home Medications Medication Instructions Recorded Confirmed Type allopurinoL [Zyloprim] 100 mg PO DAILY 06/24/13 01/14/23 History Atorvastatin [Lipitor] 80 mg PO DAILY 05/05/15 01/14/23 History Baclofen [Lioresal] 10 mg PO TID 05/05/15 01/14/23 History Diazepam [Valium] 10 mg PO BID PRN 05/05/15 01/14/23 History Losartan Potassium [Cozaar] 100 mg PO DAILY 05/05/15 01/14/23 History rOPINIRole HCL [Requip] 3 mg PO BID 05/05/15 01/14/23 History Albuterol Inhaler [Ventolin Hfa 1 - 2 puff INHALATION RT-Q6H PRN 01/14/23 01/14/23 History Inhaler] Clopidogrel [Plavix] 75 mg PO DAILY 01/14/23 01/14/23 History Furosemide [Lasix] 40 mg PO DAILY 01/14/23 01/14/23 History INSULIN LISPRO (For Pump) [humaLOG 0.01 units SQ-PUMP CONTINUOUS 01/14/23 01/14/23 History (For Pump)] Insulin Lispro [humaLOG Kwikpen] 1 - 25 unit SQ TID-W/MEALS PRN 01/14/23 3 History LORazepam [Ativan] 1 mg PO BID PRN 01/14/23 01/14/23 History Magnesium Oxide [Salomon] 500 mg PO BID 01/14/23 01/14/23 History Mupirocin Calcium 2% Cream 1 applic TOPICAL BID PRN 01/14/23 01/14/23 History [Bactroban 2% Cream] Pentoxifylline [TRENtal] 400 mg PO AC-BID 01/14/23 01/14/23 History Ranolazine [Ranexa] 500 mg PO BID 01/14/23 01/14/23 History Spironolactone [Aldactone] 25 mg PO DAILY 01/14/23 01/14/23 History Tamsulosin [Flomax] 0.4 mg PO BID 01/14/23 01/14/23 History Triamcinolone 0.1% Lotion [Kenalog 1 applic TOPICAL BID PRN 01/14/23 01/14/23 History 0.1% Lotion] Allergies Allergy/AdvReac Type Severity Reaction Status Date / Time No Known Allergies Allergy Verified 01/14/23 18:25 Physical Exam Vitals: Vital Signs Temp Pulse Pulse Resp BP BP Pulse Ox 01/15/23 04:00 97.5 F L 89 18 135/81 94 L 01/15/23 02:00 87 19 01/14/23 23:30 98.2 F 87 18 154/77 95 01/14/23 22:43 98.1 F 81 16 122/78 95 01/14/23 20:15 98.2 F 90 18 110/76 97 01/14/23 13:53 98.4 F 77 20 109/67 95 Intake and Output 01/14/23 01/15/23 01/15/23 22:59 06:59 14:59 Other: Voiding Method Toilet # Voids 1 Weight 145.9 kg Results 01/15/23 06:05 01/15/23 06:05 Cardiac Enzymes 01/14/23 01/14/23 01/14/23 Range/Units 15:02 15:02 17:24 AST 66 H (17-59) U/L Troponin I 0.070 H* 0.070 H* (0.000-0.034) ng/mL 01/14/23 01/15/23 Range/Units 21:13 06:05 AST 48 (17-59) U/L Troponin I 0.052 H* (0.000-0.034) ng/mL Coagulation 01/14/23 Range/Units 15:02 PT 11.9 (10.0-12.5) sec APTT 27.0 (22.0-30.0) sec CBC 01/14/23 01/15/23 Range/Units 15:02 06:05 WBC 8.4 6.1 (3.8-10.6) k/uL RBC 4.53 4.55 (4.30-5.90) m/uL Hgb 13.8 13.6 (13.0-17.5) gm/dL Hct 42.4 42.3 (39.0-53.0) % Plt Count 171 164 (150-450) k/uL Comprehensive Metabolic Panel 01/14/23 01/15/23 Range/Units 15:02 06:05 Sodium 136 L 135 L (137-145) mmol/L Potassium 4.5 4.3 (3.5-5.1) mmol/L Chloride 96 L 98 (98-107) mmol/L Carbon Dioxide 31 H 30 (22-30) mmol/L BUN 18 19 (9-20) mg/dL Creatinine 0.98 0.97 (0.66-1.25) mg/dL Glucose 106 H 158 H (74-99) mg/dL Calcium 8.9 8.7 (8.4-10.2) mg/dL Unconjugated Bilirubin 0.6 (0.0-1.1) mg/dL AST 66 H 48 (17-59) U/L ALT 69 H 59 H (4-49) U/L Alkaline Phosphatase 133 H 122 (38-126) U/L Total Protein 7.0 6.5 (6.3-8.2) g/dL Albumin 3.7 3.3 L (3.5-5.0) g/dL Current Medications Generic Name Dose Route Start Last Admin Trade Name Freq PRN Reason Stop Dose Admin Acetaminophen 650 mg 01/14/23 16:22 Acetaminophen Tab 325 Mg Tab PO Q6HR PRN Mild Pain or Fever > 100.5 Albuterol Sulfate 2 puff 01/14/23 20:41 Albuterol Hfa Inhaler INHALATION RT-Q6H PRN Shortness Of Breath Allopurinol 100 mg 01/15/23 09:00 Allopurinol 100 Mg Tab PO DAILY [facility] Aspirin 81 mg 01/15/23 09:00 Aspirin 81 Mg PO DAILY [facility] Atorvastatin Calcium 80 mg 01/15/23 09:00 Atorvastatin 80 Mg Tab PO DAILY [facility] Baclofen 10 mg 01/14/23 22:00 01/14/23 21:08 Baclofen 10 Mg Tab PO 10 mg TID TRISH Administration Clopidogrel Bisulfate 75 mg 01/15/23 09:00 Clopidogrel 75 Mg Tab PO DAILY [facility] Dextrose/Water 25 ml 01/14/23 20:56 Dextrose 50% Syringe 50 Ml IVP PER PROTOCOL PRN Hypoglycemia Protocol Dextrose/Water 50 ml 01/14/23 20:56 Dextrose 50% Syringe 50 Ml IVP PER PROTOCOL PRN Hypoglycemia Protocol Furosemide 40 mg 01/14/23 21:00 01/14/23 20:14 Furosemide 10 Mg/Ml 4 Ml Vial IV 40 mg Q12HR TRISH Administration Heparin Sodium (Porcine) 5,000 unit 01/15/23 00:00 01/14/23 23:35 Heparin Sodium,Porcine 5,000 Unit/Ml 1 Ml Vial SQ 5,000 unit Q8HR TRISH Administration Insulin Aspart 0 unit 01/14/23 21:00 01/15/23 06:52 Insulin Aspart (Novolog) 100 Unit/Ml Vial SQ Not Given ACHS [facility] Protocol Insulin Human Lispro 0.01 unit 01/14/23 20:45 01/14/23 21:08 Insulin Lispro (For Pump) 100 Unit/Ml Vial SQ-PUMP Not Given CONTINUOUS [facility] Losartan Potassium 100 mg 01/15/23 09:00 Losartan 50 Mg Tab PO DAILY TRISH Magnesium Oxide 400 mg 01/14/23 21:00 01/14/23 21:08 Magnesium Oxide 400 Mg Tab PO 400 mg BID TRISH Administration Naloxone HCl 0.2 mg 01/14/23 16:22 Naloxone 0.4 Mg/Ml 1 Ml Vial IV Q2M PRN Opioid Reversal Pentoxifylline 400 mg 01/15/23 07:30 Pentoxifylline 400 Mg Tablet.Er PO AC-BID TRISH Ranolazine 500 mg 01/14/23 21:00 01/14/23 21:07 Ranolazine 500 Mg Tab.Er.12h PO 500 mg BID TRISH Administration Spironolactone 25 mg 01/15/23 09:00 Spironolactone 25 Mg Tab PO DAILY [facility] Tamsulosin HCl 0.4 mg 01/14/23 21:00 01/14/23 21:08 Tamsulosin 0.4 Mg Cap.Er.24h PO 0.4 mg BID TRISH Administration Intake and Output 01/14/23 01/15/23 01/15/23 22:59 06:59 14:59 Other: Voiding Method Toilet # Voids 1 Weight 145.9 kg 01/15/23 06:05 01/15/23 06:05
--- NOTE | 2023-01-15 13:47 | CA ---
Transthoracic Echo Report Name: Deshaun Lizarraga Age: 72 Gender: M : 1950 Exam Date: 01/15/2023 08:26 Exam Location: [facility] Ht (in): 72 Wt (lb): 333 Ordering Physician: Greg Weems MD Attending/Referring Phys: [id number], Dank Casing Cooker Erlinda Rodas [facility] Procedure CPT: Indications: chf Cardiac Hx: Technical Quality: Technically difficult study Contrast 1: Definity Total Dose (mL): 8 Contrast 2: Total Dose (mL): MEASUREMENTS (Male / Female) Normal Values 2D ECHO LV Diastolic Diameter PLAX 5.5 cm 4.2 - 5.9 / 3.9 - 5.3 cm LV Systolic Diameter PLAX 5.0 cm IVS Diastolic Thickness 1.0 cm 0.6 - 1.0 / 0.6 - 0.9 cm LVPW Diastolic Thickness 1.1 cm 0.6 - 1.0 / 0.6 - 0.9 cm LV Relative Wall Thickness 0.4 LVOT Diameter 2.1 cm LV Diastolic Volume MOD BP 149.1 cm??? 67 - 155 / 56 - 104 cm??? LV Systolic Volume MOD BP 93.4 cm??? 22 - 58 / 19 - 49 cm??? LV Ejection Fraction MOD BP 37.3 % >= 55 % LV Cardiac Index MOD BP 1741.8 cm???/min???m??? LV Diastolic Volume MOD 4C 149.6 cm??? LV Systolic Volume MOD 4C 97.5 cm??? LV Ejection Fraction MOD 4C 34.8 % LV Cardiac Index MOD 4C 1631.1 cm???/min???m??? LV Diastolic Length 4C 8.6 cm LV Systolic Length 4C 8.6 cm LV Diastolic Volume MOD 2C 148.0 cm??? LV Systolic Volume MOD 2C 84.0 cm??? LV Ejection Fraction MOD 2C 43.2 % LV Cardiac Index MOD 2C 2004.0 cm???/min???m??? LV Diastolic Length 2C 8.8 cm LV Systolic Length 2C 8.1 cm Ascending Aorta Diameter 3.4 cm M-MODE Aortic Root Diameter MM 3.1 cm LA Systolic Diameter MM 5.2 cm LA Ao Ratio MM 1.6 AV Cusp Separation MM 2.3 cm DOPPLER AV Peak Velocity 100.8 cm/s AV Peak Gradient 4.1 mmHg AV Mean Velocity 82.0 cm/s AV Mean Gradient 2.8 mmHg AV Velocity Time Integral 21.9 cm LVOT Peak Velocity 81.7 cm/s LVOT Peak Gradient 2.7 mmHg LVOT Velocity Time Integral 18.8 cm LVOT Stroke Volume 63.9 cm??? LVOT Stroke Volume Index 24.1 ml/m??? LVOT Cardiac Index 2000.9 cm???/min???m??? AV Area Cont Eq vti 2.9 cm??? AV Area Cont Eq pk 2.8 cm??? MR Peak Velocity 442.2 cm/s MR Peak Gradient 78.2 mmHg Mitral E Point Velocity 94.4 cm/s Mitral A Point Velocity 83.2 cm/s Mitral E to A Ratio 1.1 MV Deceleration Time 153.7 ms LV E' Lateral Velocity 6.3 cm/s Mitral E to LV E' Lateral Ratio 14.9 LV E' Septal Velocity 8.9 cm/s Mitral E to LV E' Septal Ratio 10.5 TR Peak Velocity 265.4 cm/s TR Peak Gradient 28.2 mmHg Right Atrial Pressure 15.0 mmHg Pulmonary Artery Systolic Pressu 43.2 mmHg Right Ventricular Systolic Press 43.2 mmHg FINDINGS Left Ventricle Moderately increased left ventricular diastolic volume. Severely reduced global LV systolic function. LVEF estimated at 30-35 Distal anterolateral and anteroapical wall hypokinesia Right Ventricle Severe right ventricular dilatation. Catheter/pacemaker wire in the right ventricular cavity. Moderate pulmonary hypertension. Right Atrium Severe right atrial dilatation. Left Atrium Severe left atrial dilatation. Mitral Valve Structurally normal mitral valve. Mild mitral regurgitation. Aortic Valve Trileaflet aortic valve. No aortic valve stenosis or regurgitation. Tricuspid Valve Structurally normal tricuspid valve. Mild tricuspid regurgitation. Pulmonic Valve Pulmonic valve not well visualized. Pericardium No pericardial effusion. Aorta Normal size aortic root and proximal ascending aorta. CONCLUSIONS Moderately increased left ventricular diastolic volume. Severely reduced global LV systolic function. LVEF estimated at 30-35 Distal anterolateral and anteroapical wall hypokinesia Dilated RV with signs of moderate pulmonary hypertension. RVSP estimated at 45 mmHg PPM wire noticed and RV Severe biatrial dilatation Dilated IVC with no respiratory collapse Previewed by: Dr Chuck Dominguez (Electronically Signed) Final Date: 15 January 2023 13:46
[2023-01-15 16:40] LABS: LDL Cholesterol,Calculated 32.3 mg/dL (0.0-131.0); VLDL Calculation 11.32 mg/dL (5.00-40.00)
--- NOTE | 2023-01-15 22:38 | P.DS ---
Providers Date of admission: 01/14/23 16:22 Attending physician: Morgan Sahni Consults: 01/14/23 16:22 Consult Physician Routine Consulting Provider: Ramona Rolle Consult Reason/Comments: CHF Do you want consulting provider notified?: Yes Primary care physician: [facility] Course: Final Diagnosis Acute CHF. EF not known. Chest x-ray showed vascular congestion elevated BNP level and leg swelling. 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 Was admitted for complaints of cough, difficulty breathing and also worsening leg swelling for the past 2 weeks. Patient states that he has been having exertional dyspnea units walking to the bathroom. Patient has been having symptoms for the past 2 weeks. Patient was seen by his primary care physician and was started on Lasix 40 mg daily but without much improvement. Cardiology was consulted and echocardiogram completed. Patient symptomatically felt better. Echocardiogram did come back showing severely reduced EF 30-35% with moderate pulmonary hypertension, dilated RV, severe biatrial dilatation, Dilated IVC with no respiratory collapse. There is catheter/pacemaker wire noted in the right ventricular cavity. Patient also had liver ultrasound completed revealing hepatomegaly 20.5 cm and entire lumen appeared filled with gallstones, wall borderline thickened which may reflect chronic cholecystitis. No biliary ductal dilation. Consider HIDA scan. LFTS were elevated on admission did improve. Procal normal. Hemoglobin A1C 7.9. Had troponin elevation. Left AMA 01/15/2023 before being seen by primary service. Wants to see his own precision devices inspector/tester. The impression and plan of care has been dictated by Palmira Salomon Nurse Practitioner as directed. Dr. Cem MD I have performed a history and physical examination and medical decision making of this patient, discussed the same with the dictator, and agree with the dictators assessment and plan as written, documented as a scribe. Based on total visit time, I have performed more than 50% of this visit. Plan - Discharge Summary Discharge Rx Participant: No New Discharge Prescriptions: No Action allopurinoL [Zyloprim] 100 mg PO DAILY rOPINIRole HCL [Requip] 3 mg PO BID Atorvastatin [Lipitor] 80 mg PO DAILY Diazepam [Valium] 10 mg PO BID PRN PRN Reason: SLEEP/ANXIETY Losartan Potassium [Cozaar] 100 mg PO DAILY Baclofen [Lioresal] 10 mg PO TID LORazepam [Ativan] 1 mg PO BID PRN PRN Reason: ANXIETY THAT RAISES SUGAR Ranolazine [Ranexa] 500 mg PO BID Tamsulosin [Flomax] 0.4 mg PO BID Triamcinolone 0.1% Lotion [Kenalog 0.1% Lotion] 1 applic TOPICAL BID PRN PRN Reason: Rash Mupirocin Calcium 2% Cream [Bactroban 2% Cream] 1 applic TOPICAL BID PRN PRN Reason: Rash Clopidogrel [Plavix] 75 mg PO DAILY Furosemide [Lasix] 40 mg PO DAILY Insulin Lispro [humaLOG Kwikpen] 1 - 25 unit SQ TID-W/MEALS PRN PRN Reason: PUMP FAILURE INSULIN LISPRO (For Pump) [humaLOG (For Pump)] 0.01 units SQ-PUMP CONTINUOUS Magnesium Oxide [Salomon] 500 mg PO BID Pentoxifylline [TRENtal] 400 mg PO AC-BID Spironolactone [Aldactone] 25 mg PO DAILY Albuterol Inhaler [Ventolin Hfa Inhaler] 1 - 2 puff INHALATION RT-Q6H PRN PRN Reason: Shortness Of Breath Discharge Medication List allopurinoL [Zyloprim] 100 mg PO DAILY 06/24/13 [History] Atorvastatin [Lipitor] 80 mg PO DAILY 05/05/15 [History] Baclofen [Lioresal] 10 mg PO TID 05/05/15 [History] Diazepam [Valium] 10 mg PO BID PRN 05/05/15 [History] Losartan Potassium [Cozaar] 100 mg PO DAILY 05/05/15 [History] rOPINIRole HCL [Requip] 3 mg PO BID 05/05/15 [History] Albuterol Inhaler [Ventolin Hfa Inhaler] 1 - 2 puff INHALATION RT-Q6H PRN 01/14/23 [History] Clopidogrel [Plavix] 75 mg PO DAILY 01/14/23 [History] Furosemide [Lasix] 40 mg PO DAILY 01/14/23 [History] INSULIN LISPRO (For Pump) [humaLOG (For Pump)] 0.01 units SQ-PUMP CONTINUOUS 01/14/23 [History] Insulin Lispro [humaLOG Kwikpen] 1 - 25 unit SQ TID-W/MEALS PRN 01/14/23 [History] LORazepam [Ativan] 1 mg PO BID PRN 01/14/23 [History] Magnesium Oxide [Salomon] 500 mg PO BID 01/14/23 [History] Mupirocin Calcium 2% Cream [Bactroban 2% Cream] 1 applic TOPICAL BID PRN 01/14/23 [History] Pentoxifylline [TRENtal] 400 mg PO AC-BID 01/14/23 [History] Ranolazine [Ranexa] 500 mg PO BID 01/14/23 [History] Spironolactone [Aldactone] 25 mg PO DAILY 01/14/23 [History] Tamsulosin [Flomax] 0.4 mg PO BID 01/14/23 [History] Triamcinolone 0.1% Lotion [Kenalog 0.1% Lotion] 1 applic TOPICAL BID PRN 01/14/23 [History] Follow up Appointment(s)/Referral(s): Olvin Palmer DO [Primary Care Provider] - 1-2 days Discharge Disposition: LEFT AGAINST MEDICAL ADVICE
== END 2023-01-15 10:49 | disposition left against medical advice (07) ==
LOC: EC 13:25 → 3SCARD 16:22
PROVIDERS: ADMIT Internal Medicine; ATTEND Internal Medicine
DX: I11.0 Hypertensive heart disease with heart failure (principal); I50.9 Heart failure, unspecified; I27.20 Pulmonary hypertension, unspecified; E11.9 Type 2 diabetes mellitus without complications; I44.0 Atrioventricular block, first degree; I25.10 Atherosclerotic heart disease of native coronary artery without angina pectoris; J98.4 Other disorders of lung; E78.5 Hyperlipidemia, unspecified; K80.20 Calculus of gallbladder without cholecystitis without obstruction; I25.2 Old myocardial infarction; M10.9 Gout, unspecified; G25.81 Restless legs syndrome; R74.01 Elevation of levels of liver transaminase levels; R16.0 Hepatomegaly, not elsewhere classified; Z53.29 Procedure and treatment not carried out because of patient's decision for other reasons; E66.01 Morbid (severe) obesity due to excess calories; Z68.42 Body mass index [BMI] 45.0-49.9, adult; G89.29 Other chronic pain; Z95.810 Presence of automatic (implantable) cardiac defibrillator; Z77.090 Contact with and (suspected) exposure to asbestos; Z11.52 Encounter for screening for COVID-19; Z79.02 Long term (current) use of antithrombotics/antiplatelets; Z79.82 Long term (current) use of aspirin; Z79.899 Other long term (current) drug therapy; Z79.4 Long term (current) use of insulin; Z95.1 Presence of aortocoronary bypass graft; Z96.41 Presence of insulin pump (external) (internal); Z87.891 Personal history of nicotine dependence; Z98.890 Other specified postprocedural states; Z90.49 Acquired absence of other specified parts of digestive tract; Z82.49 Family history of ischemic heart disease and other diseases of the circulatory system; Z80.0 Family history of malignant neoplasm of digestive organs; Z80.3 Family history of malignant neoplasm of breast
CPT/HCPCS: 96376 ×2; 96372 ×2; 96374; 99285; 36415; 93005; 83880; 80061; 80053; 80048; 80076; 83605; 83735; 84484; 85025 ×2; 85610; 85730; 83036; 84145; 87636; 71046; 76705; G0378 ×2; C8929; J1644 ×2; J1940 ×2; Q9957; 93306

== ENCOUNTER 2023-01-16 14:45 | Observation (INO) | payer MEDICARE ==
--- NOTE | 2023-01-16 14:51 | ED ---
General Adult HPI - General Source: patient, RN notes reviewed, old records reviewed Mode of arrival: ambulatory Limitations: no limitations <Hardy Carlisle - Last Filed: 01/16/23 14:50> - General Source: RN notes reviewed, old records reviewed Limitations: no limitations - History of Present Illness -: days(s) Location: abdomen Radiation: abdomen Severity scale (1-10): 7 Quality: sharp Consistency: constant, colicky Improves with: none Associated Symptoms: nausea/vomiting Treatments Prior to Arrival: none <Kody Obregon - Last Filed: 01/16/23 22:22> - General Stated complaint: Gallbladder Stones Time Seen by Provider: 01/16/23 14:50 - History of Present Illness Initial comments: 72-year-old male presents emergency Department with chief complaint of abdominal pain. Patient was following up with PCP today regarding his recent admission. Patient saw to have multiple stones of his gallbladder. He states he started noticing is having some discomfort but is intermittent. PCP told him come [facility] rgency Department if symptoms worsened. (Hardy Carlisle) This is a 72-year-old male to the emergency prior for evaluation of abdominal pain, recent diagnosis of gallstones during recent admission, patient had incidental finding of gallstones without abdominal pain then. Patient has recently noticed that is had about 2 weeks of episodic abdominal pain with severe abdominal pain today. Patient was seen by his Primary care sent to the emergency prior for evaluation (Kody Obregon) - Related Data Home Medications Medication Instructions Recorded Confirmed allopurinoL [Zyloprim] 100 mg PO DAILY 06/24/13 01/16/23 Atorvastatin [Lipitor] 80 mg PO DAILY 05/05/15 01/16/23 Baclofen [Lioresal] 10 mg PO TID 05/05/15 01/16/23 Diazepam [Valium] 10 mg PO BID PRN 05/05/15 01/16/23 Losartan Potassium [Cozaar] 100 mg PO DAILY 05/05/15 01/16/23 rOPINIRole HCL [Requip] 3 mg PO BID 05/05/15 01/16/23 Albuterol Inhaler [Ventolin Hfa 1 - 2 puff INHALATION RT-Q6H PRN 01/14/23 01/16/23 Inhaler] Clopidogrel [Plavix] 75 mg PO DAILY 01/14/23 01/16/23 Furosemide [Lasix] 40 mg PO DAILY 01/14/23 01/16/23 INSULIN LISPRO (For Pump) [humaLOG 0.01 units SQ-PUMP CONTINUOUS 01/14/23 01/16/23 (For Pump)] Insulin Lispro [humaLOG Kwikpen] 1 - 25 unit SQ TID-W/MEALS PRN 01/14/23 01/16/23 LORazepam [Ativan] 1 mg PO BID PRN 01/14/23 01/16/23 Magnesium Oxide [Salomon] 500 mg PO BID 01/14/23 01/16/23 Mupirocin Calcium 2% Cream 1 applic TOPICAL BID PRN 01/14/23 01/16/23 [Bactroban 2% Cream] Pentoxifylline [TRENtal] 400 mg PO AC-BID 01/14/23 01/16/23 Ranolazine [Ranexa] 500 mg PO BID 01/14/23 01/16/23 Spironolactone [Aldactone] 25 mg PO DAILY 01/14/23 01/16/23 Tamsulosin [Flomax] 0.4 mg PO BID 01/14/23 01/16/23 Triamcinolone 0.1% Lotion [Kenalog 1 applic TOPICAL BID PRN 01/14/23 01/16/23 0.1% Lotion] Sulfamethox-Tmp 800-160Mg [Bactrim 1 tab PO DIRECTED 01/16/23 01/16/23 DS 800-160 mg] Allergies Allergy/AdvReac Type Severity Reaction Status Date / Time No Known Allergies Allergy Verified 01/16/23 21:27 Review of Systems ROS Other: All systems not noted in ROS Statement are negative. <Hardy Carlisle - Last Filed: 01/16/23 14:50> ROS Other: All systems not noted in ROS Statement are negative. <Kody Obregon - Last Filed: 01/16/23 22:22> ROS Statement: Those systems with pertinent positive or pertinent negative responses have been documented in the HPI. Past Medical History Past Medical History: Diabetes Mellitus, Hypertension Additional Past Medical History / Comment(s): vertigo, insulin pump Last Myocardial Infarction Date:: 1989 History of Any Multi-Drug Resistant Organisms: None Reported Past Surgical History: Appendectomy, Back Surgery, Coronary Bypass/CABG, Joint Replacement, Orthopedic Surgery, Tonsillectomy Additional Past Surgical History / Comment(s): HAS HAD ATTEMPTED SEVERAL COLONOSCOPIES IN THE PAST MONTHS, HOWEVER, BOWEL WAS NOT TOTALLY CLEAN. 06-03-15 total rt shoulder Past Anesthesia/Blood Transfusion Reactions: No Reported Reaction Past Psychological History: No Psychological Hx Reported Smoking Status: Former smoker Past Alcohol Use History: Occasional Additional Past Alcohol Use History / Comment(s): STARTED SMOKING AT AGE 14 SMOKED ON AND OFF QUIT 2008 / SMOKED 1PPD Past Drug Use History: None Reported Additional Drug Use History / Comment(s): SMOKES AT NIGHT - Past Family History Mother Family Medical History: Cancer Additional Family Medical History / Comment(s): breast bowel liver ca Father Family Medical History: Myocardial Infarction (MS) Additional Family Medical History / Comment(s): first mi at age 32 and w/3rd mi at age 44 <Hardy Carlisle M - Last Filed: 01/16/23 14:50> General Exam <Hardy Carlisle - Last Filed: 01/16/23 14:50> General appearance: alert, in no apparent distress Head exam: Present: atraumatic, normocephalic, normal inspection Eye exam: Present: normal appearance, PERRL, EOMI. Absent: scleral icterus, conjunctival injection, periorbital swelling ENT exam: Present: normal exam, mucous membranes moist Neck exam: Present: normal inspection. Absent: tenderness, meningismus, lymphadenopathy Respiratory exam: Present: normal lung sounds bilaterally. Absent: respiratory distress, wheezes, rales, rhonchi, stridor Cardiovascular Exam: Present: regular rate, normal rhythm, normal heart sounds. Absent: systolic murmur, diastolic murmur, rubs, gallop, clicks GI/Abdominal exam: Present: distended, tenderness (Right upper quadrant tenderness), normal bowel sounds. Absent: guarding, rebound, rigid Extremities exam: Present: normal inspection, full ROM, normal capillary refill. Absent: tenderness, pedal edema, joint swelling, calf tenderness Back exam: Present: normal inspection Neurological exam: Present: alert, oriented X3, CN II-XII intact Psychiatric exam: Present: normal affect, normal mood Skin exam: Present: warm, dry, intact, normal color. Absent: rash <Kody Obregon - Last Filed: 01/16/23 22:22> - General Exam Comments Initial Comments: Visual Physical Exam Vital signs reviewed General: Well-appearing, nontoxic, no acute distress. Head: Normocephalic, atraumatic Eyes: PERRLA, EOMI ENT: Airway patent Chest: Nonlabored breathing Skin: No visual rash, normal skin tone Neuro: Alert and oriented 3 Musculoskeletal: No gross abnormalities (Hardy Carlisle) Course <Kody Obregon - Last Filed: 01/16/23 22:22> Vital Signs 01/16/23 15:17 Temperature 98.2 F Pulse Rate 92 Respiratory 18 Rate Blood Pressure 119/53 O2 Sat by Pulse 95 Oximetry - Reevaluation(s) Reevaluation #1: 01/16/23 20:44 Record is reviewed (Kody Obregon) Reevaluation #2: 01/16/23 20:46 Patient is informed of pain here in the emergency department (Kody Obregon) Reevaluation #3: 01/16/23 20:46 Patient informed results and questions answered (Kody Obregno) Reevaluation #4: 01/16/23 20:46 Was pt. sent in by a medical professional or institution (, PA, SUPERVISOR COLOR MAKING, urgent care, hospital, or alf...) When possible be specific @ -no Did you speak to anyone other than the patient for history (EMS, parent, family, police, friend...)? What history was obtained from this source @ -no Did you review nursing and triage notes (agree or disagree)? Why? @ -agree Are old charts reviewed (outside hosp., previous admission, EMS record, old EKG, old radiological studies, urgent care reports/EKG's, alf records)? Report findings @ -yes Differential Diagnosis (chest pain, altered mental status, abdominal pain women, abdominal pain men, vaginal bleeding, weakness, fever, dyspnea, syncope, headache, dizziness, GI bleed, back pain, seizure, CVA, palpatations, mental health, musculoskeletal)? @ -prior EKG interpreted by me (3pts min.). @ -yes X-rays interpreted by me (1pt min.). @ -yes CT interpreted by me (1pt min.). @ -no U/S interpreted by me (1pt. min.). @ -no What testing was considered but not performed or refused? (CT, X-rays, U/S, labs)? Why? @ -none What meds were considered but not given or refused? Why? @ -none Did you discuss the management of the patient with other professionals (professionals i.e. , PA, SUPERVISOR [employer]KING, lab, RT, psych nurse, social media developer, warehouse shipper, teacher, minesweeping officer, case management associate)? Give summary @ -no Was smoking cessation discussed for >3mins.? @ -no Was critical care preformed (if so, how long)? @ -no Were there social determinants of health that impacted care today? How? (Homelessness, low income, unemployed, alcoholism, drug addiction, transportation, low edu. Level, literacy, decrease access to med. care, skilled nursing, rehab)? @ -none Was there de-escalation of care discussed even if they declined (Discuss DNR or withdrawal of care, Hospice)? DNR status @ -no What co-morbidities impacted this encounter? (DM, HTN, Smoking, COPD, CAD, Cancer, CVA, ARF, Chemo, Hep., AIDS, mental health diagnosis, sleep apnea, morbid obesity)? @ -none Was patient admitted / discharged? Hospital course, mention meds given and route, prescriptions, significant lab abnormalities, going to OR and other pertinent info. @ - Undiagnosed new problem with uncertain prognosis? @ -no Drug Therapy requiring intensive monitoring for toxicity (Heparin, Nitro, Insulin, Cardizem)? @ -no Were any procedures done? @ -no Diagnosis/symptom? @ - Acute, or Chronic, or Acute on Chronic? @ -Acute Uncomplicated (without systemic symptoms) or Complicated (systemic symptoms)? @ -Complicated Side effects of treatment? @ -no Exacerbation, Progression, or Severe Exacerbation? @ -exacerbation Poses a threat to life or bodily function? How? (Chest pain, USA, MS, pneumonia, PE, COPD, DKA, ARF, appy, cholecystitis, CVA, Diverticulitis, Homicidal, Suici pj, threat to staff... and all critical care pts) @ -yes (Kody Obregon) Reevaluation #5: 01/16/23 20:46 Differential Abdominal Pain Men: Appendicitis, cholecystitis, diverticulosis, ischemic bowel, pancreatitis, hepatitis, UTI, gastroenteritis, AAA, incarcerated hernia, bowel obstruction, constipation, inflammatory bowel, hepatitis, peptic ulcer disease, splenic infarction, perforated viscus, testicular torsion, this is not meant to be an all-inclusive list (Kody Obregon) Medical Decision Making <Hardy Carlisle - Last Filed: 01/16/23 14:50> - Lab Data Result diagrams: 01/16/23 21:11 01/16/23 21:11 - Radiology Data Radiology results: report reviewed (US gallbladder positive for cholecystitis), image reviewed <Kody Obregon - Last Filed: 01/16/23 22:22> - Medical Decision Making I completed the quick note portion of this chart signed Hardy Carlisle PA-C (Hardy Carlisle) 72 male to the emergency department for evaluation, patient will be admitted for cholecystitis on antibiotics and pain control. (Kody Obregno) Disposition <Hardy Carlisle - Last Filed: 01/16/23 14:50> Is patient prescribed a controlled substance at d/c from ED?: No Time of Disposition: 20:40 <Kody Obregon - Last Filed: 01/16/23 22:22> Clinical Impression: Abdominal pain, Biliary colic, Cholecystitis Disposition: ADMITTED IP TO THIS HOSP Condition: Fair
--- NOTE | 2023-01-16 19:56 | US ---
EXAMINATION TYPE: US gallbladder DATE OF EXAM: 01/16/2023 COMPARISON: 01/14/23 CLINICAL INDICATION: Male, 72 years old with history of pain; RUQ pain. Hx of gallstones found 2 days ago TECHNIQUE: Multiple sonographic images of the right upper quadrant are obtained. FINDINGS: EXAM MEASUREMENTS: Liver Length: 17.2 cm Gallbladder Wall: 0.60 cm CBD: 0.36 cm Right Kidney: 10.9 x 4.9 x 7.1 cm Pancreas: Obscured by bowel gas Liver: Limited due to body habitus, no mass seen Gallbladder: Filled with gallstones, wall appears thickened Evidence for sonographic Sparrow's sign: No CBD: wnl Right Kidney: wnl IMPRESSION: Cholelithiasis with thickening of the bladder wall. Correlate for acute cholecystitis.
[2023-01-16] MEDS ORDERED: KETOROLAC 15 MG/ML 1 ML VIAL IVP STA (20:09)
[2023-01-16] MEDS ORDERED: ONDANSETRON 4 MG/2 ML VIAL IVP STA (20:09)
[2023-01-16] MEDS ORDERED: SODIUM CHLORIDE 0.9% 1,000 ML IV STA (20:09)
[2023-01-16] MEDS ORDERED: HYDROmorphone 0.5 MG/0.5 ML SYRINGE IVP STA (20:10)
[2023-01-16] MEDS ORDERED: AMPICILLIN-SULBACTAM 3 GM in SODIUM CHLORIDE 0.9% 100 ML IVPB STA (20:38)
[2023-01-16] MEDS ORDERED: ONDANSETRON 4 MG/2 ML VIAL IVP PRN (20:38)
[2023-01-16] MEDS ORDERED: HYDROmorphone 0.5 MG/0.5 ML SYRINGE IVP PRN (20:38)
[2023-01-16] MEDS ORDERED: NALOXONE 0.4 MG/ML 1 ML VIAL IV PRN (20:38)
[2023-01-16 21:28] LABS: Basophils % (A) 0 %; Eosinophils # (A) 0.1 k/uL (0-0.7); Eosinophils % (A) 2 %; HCT 45.8 % (39.0-53.0); HGB 14.5 gm/dL (13.0-17.5); Hypochromasia Slight; Lymphocytes # (A) 1.1 k/uL (1.0-4.8); Lymphocytes % (A) 19 %; MCH 29.7 pg (25.0-35.0); MCHC 31.7 g/dL (31.0-37.0); MCV 93.7 fL (80.0-100.0); Mean Platelet Volume 7.4; Monocytes # (A) 0.1 k/uL (0-1.0); Monocytes % (A) 2 %; Neutrophils # (A) 4.1 k/uL (1.3-7.7); Neutrophils % (A) 73 %; Platelet Count 184 k/uL (150-450); RBC 4.88 m/uL (4.30-5.90); RDW 13.6 % (11.5-15.5); WBC 5.6 k/uL (3.8-10.6)
[2023-01-16 21:40] LABS: ALT 51 U/L (4-49); AST 46 U/L (17-59); African American GFR (CKD) 81 (>60 ml/min/1.73 sqM); Albumin 3.9 g/dL (3.5-5.0); Alkaline Phosphatase 127 U/L (38-126); Amylase 62 U/L (30-110); Anion Gap 9 mmol/L; Blood Urea Nitrogen 22 mg/dL (9-20); Calcium 8.9 mg/dL (8.4-10.2); Carbon Dioxide 31 mmol/L (22-30); Chloride 95 mmol/L (98-107); Glucose 217 mg/dL (74-99); Lipase 165 U/L (23-300); Non-African American GFR(CKD) 70 (>60 ml/min/1.73 sqM); Potassium 4.2 mmol/L (3.5-5.1); Sodium 135 mmol/L (137-145); Total Bilirubin 0.7 mg/dL (0.2-1.3); Total Protein 7.3 g/dL (6.3-8.2)
[2023-01-16 22:23] LABS: INR 1.1 (<1.2); Partial Thromboplastin Time 27.2 sec (22.0-30.0); Prothrombin Time 11.6 sec (10.0-12.5)
[2023-01-16] MEDS: SODIUM CHLORIDE 0.9% 1,000 ML IV SCH (22:54)
[2023-01-17] MEDS: SODIUM CHLORIDE 0.9% 1,000 ML IV SCH ×2 (08:53→10:47)
[2023-01-17] MEDS ORDERED: MIDAZOLAM 2 MG/2 ML VIAL IVP ONE (09:09)
[2023-01-17 09:26] LABS: Glucose,Whole Blood 125 mg/dL (70-110)
--- NOTE | 2023-01-17 09:27 | P.ANPRN ---
Procedure Note - Anesthesia - Invasive Line Right Arterial Line Time Out Performed: Yes Date of Procedure: 01/17/23 Time of Procedure: 09:20 Location of Patient: PreOp Preparation: Sterile Prep Arterial Line Location: Radial Ultrasound Used: Yes Purpose - Visualization and Identification of Vasculature: Yes Image Stored and Saved: Yes Narrative: Central line placement per sterile protocol utilized.
--- NOTE | 2023-01-17 09:35 | P.CRDCN ---
History of Present Illness Consult date: 01/17/23 Reason for Consult (text): elevated troponin History of present illness: HISTORY OF PRESENT ILLNESS: This is a 72-year-old male follows with a negative cleaner out of [facility]. He has a past medical history of coronary artery disease with previous CABG, cardiomyopathy, hypertension, hyperlipidemia, diabetes, back surgery with chronic pain, morbid obesity, and former nicotine dependence. We have been called to the preop area for preop cardiac clearance regarding elevated troponin. Patient was recently in the hospital from . He was seen by cardiology at that time for acute heart failure but patient signed out AMA. Echocardiogram obtained at that time revealed EF of 30-35%, moderate pulmonary hypertension with RVSP 45 mmHg. Severe biatrial dilatation. Dilated IVC with no respiratory collapse. States that he left the hospital because he was very anxious but he followed up with his PCP and saw the results of his test and told the patient that he had gallbladder problem. Patient states he was trying to lay down yesterday and the abdominal pain became very severe and he was advised by his PCP to come in the hospital for further evaluation. Patient also gives history of a recent hospitalization at [facility] for cellulitis and lower extremity edema. At this time, patient denies having any chest pain and no shortness of breath. He has lower extremity edema who and redness which she states is at his baseline. Patient is on all appropriate medications except noted to not be on a beta josiane. Patient states he has been on metoprolol in the past but unsure when this may have been discontinued. EKG sinus rhythm with first-degree block, incomplete left bundle blackbox or evidence of old SD, PVCs, no signs of acute ischemia Gallbladder ultrasound revealed cholelithiasis with thickening of the bladder wall. Correlate for acute cholecystitis. CBC unremarkable. INR 1.1. Sodium 135, potassium 4.2, chloride 95, CO2 31, BUN 22 creatinine 1.05. Blood sugar 217. ALT 51, alkaline phosphatase 127. Troponin 0.055. Lipase 165. Troponins from 01/14/2023: 0.07, 0.07, 0.052. Chest xray 01/14/2023: cardiomegaly and postoperative changes. Pulmonary vascular congestion with some interstitial edema, superimposed on chronic changes. Correlate for mild CHF. Current home cardiac medications include Aldactone 25 mg daily, Plavix 75 mg daily, Ranexa 500 mg twice a day, Lasix 40 mg daily, losartan 100 mg daily, Lipitor 80 mg daily Cardiac catheterization performed following a positive stress test and IVD firing at [facility] on 02/03/[address] Joaquin Stock revealed triple- vessel coronary artery disease, anatomy grossly unchanged from 2018. Patent BAKER/LAD and SVG/OM. Patent stents in the [place] RCA and SVG/OM. IFR of the RCA 0.96, nonsignificant stenosis. Severe LV dysfunction of 30%. Patient was planned to continue on ARB, beta josiane and Aldactone and consider SGLT2 inhibitor. REVIEW OF SYSTEMS: At the time of my exam: CONSTITUTIONAL: Denies fever or chills. HEENT: Denies blurred vision, vision changes, or eye pain. Denies hemoptysis CARDIOVASCULAR: Denies chest pain. Denies orthopnea. Denies PND. Denies palpitations RESPIRATORY: Denies shortness of breath. GASTROINTESTINAL: Denies abdominal pain. Denies nausea or vomiting. HEMATOLOGIC: Denies bleeding disorders. GENITOURINARY: Denies any blood in urine. SKIN: Denies pruitis. Denies rash. PHYSICAL EXAM: VITAL SIGNS: Reviewed. GENERAL: Well-developed in no acute distress. HEENT: Head is normocephalic. Pupils are equal, round. Sclerae anicteric. Mucous membranes of the mouth are moist. Neck supple. No JVD or thyromegaly LUNGS: Respirations even and unlabored. Lungs essentially clear to auscultation bilaterally. HEART: Regular rate and rhythm. S1 and S2 heard. ABDOMEN: Soft. Nondistended. Nontender. EXTREMITIES: Normal range of motion. No clubbing or cyanosis. Peripheral puls es intact. 2+ bilateral lower extremity edema up into the thighs with mild erythema noted. NEUROLOGIC: Awake and alert. Oriented x 3. ASSESSMENT: Cholelithiasis Chronic systolic heart failure Coronary artery disease with previous CABG 4 vessels Hypertension Hyperlipidemia Diabetes History of back surgery with chronic pain Morbid obesity Former nicotine dependence History of COPD History of Asbestos History of AICD implantation with previous ICD discharge (about 5 years ago per patient) PLAN: Resume home cardiac medications Discussed with the patient as well as anesthesia the patient is at moderate to high risk for surgical intervention for gallbladder. Patient's heart failure, cardiomyopathy is optimized at this time. Patient verbalizes that he wishes to go through with surgery and understands his risks for complications. Further recommendations pending patient's course Nurse practitioner note has been reviewed by physician. Signing provider agrees with the documented findings, assessment, and plan of care. Past Medical History Past Medical History: Diabetes Mellitus, Hypertension Additional Past Medical History / Comment(s): vertigo, insulin pump Last Myocardial Infarction Date:: 1989 History of Any Multi-Drug Resistant Organisms: None Reported Past Surgical History: Appendectomy, Back Surgery, Coronary Bypass/CABG, Joint Replacement, Orthopedic Surgery, Tonsillectomy Additional Past Surgical History / Comment(s): HAS HAD ATTEMPTED SEVERAL COLONOSCOPIES IN THE PAST MONTHS, HOWEVER, BOWEL WAS NOT TOTALLY CLEAN. 06-03-15 total rt shoulder Past Anesthesia/Blood Transfusion Reactions: No Reported Reaction Past Psychological History: No Psychological Hx Reported Smoking Status: Former smoker Past Alcohol Use History: Occasional Past Drug Use History: None Reported - Past Family History Mother Family Medical History: Cancer Additional Family Medical History / Comment(s): breast bowel liver ca Father Family Medical History: Myocardial Infarction ([place]) Additional Family Medical History / Comment(s): first mi at age 32 and w/ 3rd mi at age 44 Medications and Allergies Home Medications Medication Instructions Recorded Confirmed Type allopurinoL [Zyloprim] 100 mg PO DAILY 06/24/13 01/16/23 History Atorvastatin [Lipitor] 80 mg PO DAILY 05/05/15 01/16/23 History Baclofen [Lioresal] 10 mg PO TID 05/05/15 01/16/23 History Diazepam [Valium] 10 mg PO BID PRN 05/05/15 01/16/23 History Losartan Potassium [Cozaar] 100 mg PO DAILY 05/05/15 01/16/23 History rOPINIRole HCL [Requip] 3 mg PO BID 05/05/15 01/16/23 History Albuterol Inhaler [Ventolin Hfa 1 - 2 puff INHALATION RT-Q6H PRN 01/14/23 01/16/23 History Inhaler] Clopidogrel [Plavix] 75 mg PO DAILY 01/14/23 01/16/23 History Furosemide [Lasix] 40 mg PO DAILY 01/14/23 01/16/23 History INSULIN LISPRO (For Pump) [humaLOG 0.01 units SQ-PUMP CONTINUOUS 01/14/23 01/16/23 History (For Pump)] Insulin Lispro [humaLOG Kwikpen] 1 - 25 unit SQ TID-W/MEALS PRN 01/14/23 01/16/23 History LORazepam [Ativan] 1 mg PO BID PRN 01/14/23 01/16/23 History Magnesium Oxide [Salomon] 500 mg PO BID 01/14/23 01/16/23 History Mupirocin Calcium 2% Cream 1 applic TOPICAL BID PRN 01/14/23 01/16/23 History [Bactroban 2% Cream] Pentoxifylline [TRENtal] 400 mg PO AC-BID 01/14/23 01/16/23 History Ranolazine [Ranexa] 500 mg PO BID 01/14/23 01/16/23 History Spironolactone [Aldactone] 25 mg PO DAILY 01/14/23 01/16/23 History Tamsulosin [Flomax] 0.4 mg PO BID 01/14/23 01/16/23 History Triamcinolone 0.1% Lotion [Kenalog 1 applic TOPICAL BID PRN 01/14/23 01/16/23 History 0.1% Lotion] Sulfamethox-Tmp 800-160Mg [Bactrim 1 tab PO DIRECTED 01/16/23 01/16/23 History DS 800-160 mg] Allergies Allergy/AdvReac Type Severity Reaction Status Date / Time No Known Allergies Allergy Verified 01/17/23 07:47 Physical Exam Vitals: Vital Signs Temp Pulse Resp BP Pulse Ox 01/17/23 05:25 99.3 F 88 14 104/63 91 L 01/17/23 00:30 97.6 F 89 14 107/66 92 L 01/16/23 15:17 98.2 F 92 18 119/53 95 Intake and Output 01/16/23 01/17/23 01/17/23 22:59 06:59 14:59 Other: Weight 149.685 kg Results 01/16/23 21:11 01/16/23 21:11 Cardiac Enzymes 01/16/23 01/16/23 Range/Units 21:11 21:11 AST 46 (17-59) U/L Troponin I 0.055 H* (0.000-0.034) ng/mL Coagulation 01/16/23 Range/Units 21:11 PT 11.6 (10.0-12.5) sec APTT 27.2 (22.0-30.0) sec CBC 01/16/23 Range/Units 21:11 WBC 5.6 (3.8-10.6) k/uL RBC 4.88 (4.30-5.90) m/uL Hgb 14.5 (13.0-17.5) gm/dL Hct 45.8 (39.0-53.0) % Plt Count 184 (150-450) k/uL Comprehensive Metabolic Panel 01/16/23 Range/Units 21:11 Sodium 135 L (137-145) mmol/L Potassium 4.2 (3.5-5.1) mmol/L Chloride 95 L (98-107) mmol/L Carbon Dioxide 31 H (22-30) mmol/L BUN 22 H (9-20) mg/dL Creatinine 1.05 (0.66-1.25) mg/dL Glucose 217 H (74-99) mg/dL Calcium 8.9 (8.4-10.2) mg/dL AST 46 (17-59) U/L ALT 51 H (4-49) U/L Alkaline Phosphatase 127 H (38-126) U/L Total Protein 7.3 (6.3-8.2) g/dL Albumin 3.9 (3.5-5.0) g/dL Current Medications Generic Name Dose Route Start Last Admin Trade Name Freq PRN Reason Stop Dose Admin Hydromorphone HCl 0.5 mg 01/16/23 20:38 Hydromorphone 0.5 Mg/0.5 Ml Syringe IVP Q3HR PRN Moderate Pain (Scale 4 to 6) Sodium Chloride 1,000 mls @ 75 mls/hr 01/16/23 20:45 01/16/23 22:54 Saline 0.9% IV 75 mls/hr .[id number] TRISH Administration Naloxone HCl 0.2 mg 01/16/23 20:38 Naloxone 0.4 Mg/Ml 1 Ml Vial IV Q2M PRN Opioid Reversal Ondansetron HCl 4 mg 01/16/23 20:38 Ondansetron 4 Mg/2 Ml Vial IVP Q8HR PRN Nausea And Vomiting Pantoprazole Sodium 40 mg 01/17/23 09:00 Pantoprazole 40 Mg/10 Ml Vial IV DAILY TRISH Intake and Output 01/16/23 01/17/23 01/17/23 22:59 06:59 14:59 Other: Weight 149.685 kg 01/16/23 21:11 01/16/23 21:11
[2023-01-17] MEDS ORDERED: FUROSEMIDE 40 MG TAB PO SCH (10:00)
[2023-01-17] MEDS ORDERED: ROCURONIUM 10 MG/ML (5 ML VIAL) IV ONE (10:42)
[2023-01-17] MEDS ORDERED: SUCCINYLCHOLINE CHLORIDE 200 MG/10 ML VIAL IV ONE (10:42)
[2023-01-17] MEDS ORDERED: ETOMIDATE 2 MG/ML 10 ML VIAL ONE (10:42)
[2023-01-17] MEDS ORDERED: fentaNYL (PF) 50 MCG/ML 2 ML AMP ONE (10:42)
[2023-01-17] MEDS ORDERED: ESMOLOL 100 MG/10 ML VIAL ONE (10:42)
[2023-01-17] MEDS ORDERED: NEOSTIGMINE 1 MG/ML 10 ML VIAL ONE (10:42)
[2023-01-17] MEDS ORDERED: GLYCOPYRROLATE 0.2 MG/ML 2 ML VIAL ONE (10:42)
[2023-01-17] MEDS ORDERED: LIDOCAINE 1% INJ 10MG/ML (20 ML MDV) ONE (10:42)
[2023-01-17] MEDS ORDERED: SODIUM CHLORIDE 0.9% 100 ML with ceFAZolin 3,000 MG IV ONE ×2 (10:55)
[2023-01-17 11:03] LABS: Basophils # (A) 0.04 X 10*3/uL (0.00-0.10); Basophils % (A) 0.8 %; Eosinophils # (A) 0.09 X 10*3/uL (0.04-0.35); Eosinophils % (A) 1.7 %; HCT 47.8 % (39.6-50.0); HGB 14.8 g/dL (13.0-17.0); Lymphocytes # (A) 1.18 X 10*3/uL (0.90-5.00); Lymphocytes % (A) 22.4 %; MCH 29.8 pg (27.0-32.0); MCV 96.2 FL (80.0-97.0); Mean Platelet Volume 9.6 FL (9.5-12.2); Monocytes # (A) 0.69 X 10*3/uL (0.20-1.00); Monocytes % (A) 13.1 %; NRBC Per 100 WBC 0 X 10*3/uL (0.00-0.01); Neutrophils # (A) 3.24 X 10*3/uL (1.80-7.70); Neutrophils % (A) 61.6 %; Platelet Count 200 X 10*3/uL (140-440); RBC 4.97 X 10*6/uL (4.40-5.60); RDW 13.9 % (11.5-14.5); WBC 5.26 X 10*3/uL (4.50-10.00)
[2023-01-17 11:14] LABS: BUN/Creat Ratio 18.31 Ratio (12.00-20.00); Blood Urea Nitrogen 23.8 mg/dL (9.0-27.0); Glucose 93 mg/dL (70-110); Magnesium 2.5 mg/dL (1.5-2.4); Phosphorus 4.5 mg/dL (2.4-5.1)
[2023-01-17 11:15] LABS: ALT 58 U/L (10-49); AST 64 U/L (14-35); Albumin/Globulin Ratio 1.18 Ratio (1.60-3.17); Alkaline Phosphatase 138 U/L (41-126); Calcium 9.1 mg/dL (8.7-10.3); Carbon Dioxide 30.5 mmol/L (21.6-31.8); Chloride 99 mmol/L (96-109); Globulin 3.4 g/dL (1.6-3.3); Potassium 4.4 mmol/L (3.5-5.5); Sodium 139 mmol/L (135-145); Total Bilirubin 0.6 mg/dL (0.3-1.2); Total Protein 7.4 g/dL (6.2-8.2)
[2023-01-17] MEDS ORDERED: BUPIVACAINE (PF) 0.25% 30 ML VIAL SQ ONE (11:20)
[2023-01-17] MEDS ORDERED: HYDROmorphone 0.5 MG/0.5 ML SYRINGE IVP PRN (11:59)
[2023-01-17] MEDS ORDERED: HYDROmorphone 1 MG/ML 1 ML SYRINGE IVP PRN (11:59)
[2023-01-17] MEDS ORDERED: HYDROcodone/APAP 5-325MG 1 EACH TAB PO PRN (11:59)
[2023-01-17] MEDS ORDERED: ONDANSETRON 4 MG/2 ML VIAL IVP PRN (11:59)
[2023-01-17] MEDS ORDERED: NALOXONE 0.4 MG/ML 1 ML VIAL IV PRN (11:59)
[2023-01-17] MEDS ORDERED: LACTATED RINGERS 1,000 ML IV ONE (11:59)
[2023-01-17] MEDS ORDERED: ACETAMINOPHEN TAB 325 MG TAB PO PRN (11:59)
--- NOTE | 2023-01-17 11:59 | P.OP ---
Date of Procedure: 01/17/23 Preoperative Diagnosis: Acute cholecystitis Postoperative Diagnosis: Acute cholecystitis Procedure(s) Performed: Laparoscopic cholecystectomy Anesthesia: ILDA Surgeon: Cornelius Delarosa Estimated Blood Loss (ml): 5 Pathology: other (Gallbladder) Condition: stable Disposition: PACU Description of Procedure: The patient was placed on the operating table. The patient received a general endotracheal tube anesthesia. The patients abdomen was prepped and draped in the usual sterile fashion. Through an infraumbilical stab incision, the fascia of the anterior abdominal wall was grasped with a pair of Kochers and then the Veress needle was placed in the peritoneal cavity. Position of the Veress needle was confirmed with positive drop test. The abdomen was then insufflated. After adequate insufflation, the 10 mm trocar was placed in the peritoneal cavity. Following this the laparoscope was placed in the peritoneal cavity. The patient was placed in the head-up, right side up position and then a 5 mm trocar was placed in the right lateral and right subcostal position under direct visualization. A 8 mm trocar was placed in the epigastric position. The gallbladder was grasped in the fundus and infundibulum. Traction on the gallbladder was placed in the lateral and the cephalad positions. The triangle of Calot was visualized.. The cystic duct was bluntly dissected until the union of the cystic duct and common bile duct was seen. A critical view of safety was achieved. The cystic duct was then divided and sealed with the Harmonic scissors. A PDS Endoloop was then placed throughout the cystic duct stump. The cystic artery divided and sealed with the Harmonic scissors. The gallbladder was then removed from the liver bed using Harmonic scissors. The gallbladder was then extracted through the epigastric port site. Operative field was checked for any bleeding spots and Harmonic scissors was used to coagulate the liver bed. The abdomen was irrigated. The trocars were removed. The skin was closed using interrupted 3-0 Vicryl suture. Dermabond dressing were applied. The patient tolerated the procedure well.
[2023-01-17 13:27] LABS: Glucose,Whole Blood 118 mg/dL (70-110)
[2023-01-17] MEDS ORDERED: TRIAMCINOLONE 0.1% CREAM 80 GM TUBE TOPICAL PRN (16:02)
[2023-01-17] MEDS ORDERED: ALBUTEROL HFA INHALER INHALATION PRN (16:02)
[2023-01-17] MEDS ORDERED: BACLOFEN 10 MG TAB PO PRN (16:02)
[2023-01-17] MEDS ORDERED: DEXTROSE 50% SYRINGE 50 ML IVP PRN ×2 (16:03)
[2023-01-17] MEDS ORDERED: INSULIN LISPRO (For Pump) 100 UNIT/ML VIAL SQ-PUMP SCH (16:15)
[2023-01-17] MEDS: CLOPIDOGREL 75 MG TAB PO SCH (16:15)
[2023-01-17 17:22] LABS: Glucose,Whole Blood 215 mg/dL (70-110)
[2023-01-17] MEDS: SPIRONOLACTONE 25 MG TAB PO SCH (17:59)
[2023-01-17] MEDS: LOSARTAN 50 MG TAB PO SCH (17:59)
[2023-01-17] MEDS: RANOLAZINE 500 MG TAB.ER.12H PO SCH ×2 (17:59→20:01)
[2023-01-17] MEDS: INSULIN ASPART (NovoLOG) 100 UNIT/ML VIAL SQ SCH ×2 (18:00→20:15)
[2023-01-17] MEDS: PENTOXIFYLLINE 400 MG TABLET.ER PO SCH (18:00)
[2023-01-17] MEDS: ATORVASTATIN 80 MG TAB PO SCH (18:00)
[2023-01-17] MEDS: PANTOPRAZOLE 40 MG/10 ML VIAL IV SCH (18:39)
[2023-01-17 20:01] LABS: Glucose,Whole Blood 241 mg/dL (70-110)
[2023-01-17] MEDS: TAMSULOSIN 0.4 MG CAP.ER.24H PO SCH (20:01)
[2023-01-17] MEDS: MAGNESIUM OXIDE 400 MG TAB PO SCH (20:02)
[2023-01-17] MEDS ORDERED: INSULIN ASPART (NovoLOG) 100 UNIT/ML VIAL SQ PRN (20:03)
[2023-01-17] MEDS ORDERED: INSPUCOR MISCELLANE PRN (20:03)
[2023-01-17] MEDS ORDERED: INSULIN PUMP BASAL RATES 1 EACH MISC MISCELLANE PRN (20:03)
[2023-01-17] MEDS: INSULIN PUMP MEAL BOLUS 1 UNIT MISC MISCELLANE SCH (20:15)
--- NOTE | 2023-01-17 20:39 | P.CONS ---
History of Present Illness - Reason for Consult Consult date: 01/17/23 medical management Requesting physician: Cornelius Delarosa - History of Present Illness This is a 72 year old male with medical history of coronary artery disease post quadruple CABG, AICD, hypertension, diabetes type 2 insulin-dependent insulin pump, history of back surgery and chronic pain, restless leg syndrome and prior history of smoking. Patient sent back in to the hospital after leaving AMA y from his PCP Dr. Palmer with concern for acute cholecystitis and gallstones. Patient comes back in with increasing abdominal pain throughout the day yesterday and was admitted under general surgery with cardiology consultation placed for surgical clearance. Denies any fever or chills, no shortness of breath. Patient has known cardiomyopathy with EF 30% redemonstrated on echocardiogram completed here on 01/15/2023 which reveals an EF of 30-35% severely reduced global LV systolic function and dilated RV with signs of moderate pulmonary hypertension, PPM wire noticed and RV with severe biatrial dilation and dilated IVC with no respiratory collapse. Patient had liver ultrasound completed previous admission revealing hepatomegaly 20.5 cm and entire lumen appeared filled with gallstones, wall borderline thickened which may reflect chronic cholecystitis. No biliary ductal dilation. Consider HIDA scan. He left AMA prior to further evaluation and surgical consultation. 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 He was sent back in for evaluation.On admission had gallbladder U/S completed showing cholelisthiasis with thickening of the bladder wall. Correlate for acute cholecystitis. Patient also has lower extremity edema which he states is normal for him with chronic hyperpigmentation likely chronic venous insufficiency. Scheduled to undergo gallbladder removal today. REVIEW OF SYSTEMS: CONSTITUTIONAL: No fever, no malaise, no fatigue. HEENT: No recent visual problems or hearing problems. Denied any sore throat. CARDIOVASCULAR: No chest pain, orthopnea, PND, no palpitations, no syncope. PULMONARY: No shortness of breath, no cough, no hemoptysis. GASTROINTESTINAL: No diarrhea, no nausea, no vomiting. Reports abdominal pain. NEUROLOGICAL: No headaches, no weakness, no numbness. HEMATOLOGICAL: Denies any bleeding or petechiae. GENITOURINARY: Denies any burning micturition, frequency, or urgency. MUSCULOSKELETAL/RHEUMATOLOGICAL: Denies any joint pain, swelling, or any muscle pain. ENDOCRINE: Denies any polyuria or polydipsia. The rest of the 14-point review of systems is negative. PHYSICAL EXAMINATION: GENERAL: The patient is alert and oriented x3, not in any acute distress. Well developed, well nourished. HEENT: Pupils are round and equally reacting to light. EOMI. No scleral icterus. No conjunctival pallor. Normocephalic, atraumatic. No pharyngeal erythema. No thyromegaly. CARDIOVASCULAR: S1 and S2 present. No murmurs, rubs, or gallops. PULMONARY: Chest is clear to auscultation, no wheezing or crackles. ABDOMEN: Soft, nontender, nondistended, normoactive bowel sounds. No palpable organomegaly. Post surgical abdomen. MUSCULOSKELETAL: No joint swelling or deformity. EXTREMITIES: No cyanosis, clubbing, or pedal edema. NEUROLOGICAL: Gross neurological examination did not reveal any focal deficits. SKIN: No rashes. Erythema lower extremity with scabbed ulceration to the left george. Assessment and Plan Acute choleystitis and cholelisthiasis patient scheduled to undergo laproscopic cholecystectomy today; deemed moderate to high risk for surgery due to systolic dysfunction and cardiomyopathy however patient is currently optimized on medical therapy for this. Patient wishes to undergo surgical intervention. Transaminitis due to above. Chronic systolic heart failure with EF 30%. Coronary artery history of quadruple CABG Diabetes type 2 insulin-dependent on insulin pump which will be continued including accuchecks ACHS and sliding scale insulin ordered. Hx of COPD with no acute exacerbation Hx of AICD and cardiomyopathy Hypertension Chronic pain History of gout Restless leg syndrome Morbid obesity BMI 45.2 Former smoker GI prophylaxis DVT prophylaxis Full Code For the above mentioned medical problems home medications have been ordered. Patient uses insulin pump for basal rate and will continue with accuechecks ACHS and sliding scale insulin. Pain management in place. Cardiology following. Thank you for this consultation. The impression and plan of care has been dictated by Palmira Salomon, Nurse Practitioner as directed. Dr. Cem MD I have performed a history and physical examination and medical decision making of this patient, discussed the same with the dictator, and agree with the dictators assessment and plan as written, documented as a scribe. Based on total visit time, I have performed more than 50% of this visit. Past Medical History Past Medical History: Diabetes Mellitus, Hypertension Additional Past Medical History / Comment(s): vertigo, insulin pump Last Myocardial Infarction Date:: 1989 History of Any Multi-Drug Resistant Organisms: None Reported Past Surgical History: Appendectomy, Back Surgery, Coronary Bypass/CABG, Joint Replacement, Orthopedic Surgery, Tonsillectomy Additional Past Surgical History / Comment(s): HAS HAD ATTEMPTED SEVERAL COL ONOSCOPIES IN THE PAST MONTHS, HOWEVER, BOWEL WAS NOT TOTALLY CLEAN. 06-03-15 total rt shoulder Past Anesthesia/Blood Transfusion Reactions: No Reported Reaction Past Psychological History: No Psychological Hx Reported Smoking Status: Former smoker Past Alcohol Use History: Occasional Past Drug Use History: None Reported - Past Family History Mother Family Medical History: Cancer Additional Family Medical History / Comment(s): breast bowel liver ca Father Family Medical History: Myocardial Infarction ([place]) Additional Family Medical History / Comment(s): first mi at age 32 and w/3rd mi at age 44 Medications and Allergies Home Medications Medication Instructions Recorded Confirmed Type allopurinoL [Zyloprim] 100 mg PO DAILY 06/24/13 01/16/23 History Atorvastatin [Lipitor] 80 mg PO DAILY 05/05/15 01/16/23 History Baclofen [Lioresal] 10 mg PO TID 05/05/15 01/16/23 History Diazepam [Valium] 10 mg PO BID PRN 05/05/15 01/16/23 History Losartan Potassium [Cozaar] 100 mg PO DAILY 05/05/15 01/16/23 History rOPINIRole HCL [Requip] 3 mg PO BID 05/05/15 01/16/23 History Albuterol Inhaler [Ventolin Hfa 1 - 2 puff INHALATION RT-Q6H PRN 01/14/23 01/16/23 History Inhaler] Clopidogrel [Plavix] 75 mg PO DAILY 01/14/23 01/16/23 History Furosemide [Lasix] 40 mg PO DAILY 01/14/23 01/16/23 History INSULIN LISPRO (For Pump) [humaLOG 0.01 units SQ-PUMP CONTINUOUS 01/14/23 01/16/23 History (For Pump)] Insulin Lispro [humaLOG Kwikpen] 1 - 25 unit SQ TID-W/MEALS PRN 01/14/23 01/16/23 History LORazepam [Ativan] 1 mg PO BID PRN 01/14/23 01/16/23 History Magnesium Oxide [Salomon] 500 mg PO BID 01/14/23 01/16/23 History Mupirocin Calcium 2% Cream 1 applic TOPICAL BID PRN 01/14/23 01/16/23 History [Bactroban 2% Cream] Pentoxifylline [TRENtal] 400 mg PO AC-BID 01/14/23 01/16/23 History Ranolazine [Ranexa] 500 mg PO BID 01/14/23 01/16/23 History Spironolactone [Aldactone] 25 mg PO DAILY 01/14/23 01/16/23 History Tamsulosin [Flomax] 0.4 mg PO BID 01/14/23 01/16/23 History Triamcinolone 0.1% Lotion [Kenalog 1 applic TOPICAL BID PRN 01/14/23 01/16/23 History 0.1% Lotion] Sulfamethox-Tmp 800-160Mg [Bactrim 1 tab PO DIRECTED 01/16/23 01/16/23 History DS 800-160 mg] Allergies Allergy/AdvReac Type Severity Reaction Status Date / Time No Known Allergies Allergy Verified 01/17/23 09:42 Physical Exam Vitals: Vital Signs Temp Pulse Pulse Resp BP BP Pulse Ox 01/17/23 12:35 90 20 159/86 95 01/17/23 12:20 87 20 156/82 96 01/17/23 12:05 97.6 F 98 18 170/92 94 L 01/17/23 09:36 94 16 130/66 99 01/17/23 08:38 96.6 F L 88 16 131/81 95 01/17/23 05:25 99.3 F 88 14 104/63 91 L 01/17/23 00:30 97.6 F 89 14 107/66 92 L Intake and Output 01/17/23 01/17/23 01/17/23 06:59 14:59 22:59 Intake Total 750 Output Total 10 Balance 740 Intake: IV 750 Output: Estimated Blood Loss 10 Results CBC & Chem 7: 01/17/23 07:21 01/17/23 07:21 Labs: Abnormal Lab Results - Last 24 Hours (Table) 01/16/23 01/16/23 01/17/23 Range/Units 21:11 21:11 07:21 MCHC 31.0 L (32.0-37.0) g/dL Sodium 135 L (137-145) mmol/L Chloride 95 L (98-107) mmol/L Carbon Dioxide 31 H (22-30) mmol/L BUN 22 H (9-20) mg/dL Est GFR (CKD-EPI) (>=60) Glucose 217 H (74-99) mg/dL POC Glucose (mg/dL) (70-110) mg/dL Magnesium (1.5-2.4) mg/dL AST (14-35) U/L ALT 51 H (4-49) U/L Alkaline Phosphatase 127 H (38-126) U/L Troponin I 0.055 H* (0.000-0.034) ng/mL Globulin (1.6-3.3) g/dL Albumin/Globulin Ratio (1.60-3.17) Ratio 01/17/23 01/17/23 01/17/23 Range/Units 07:21 09:25 13:26 MCHC (32.0-37.0) g/dL Sodium (137-145) mmol/L Chloride (98-107) mmol/L Carbon Dioxide (22-30) mmol/L BUN (9-20) mg/dL Est GFR (CKD-EPI) 58 L (>=60) Glucose (74-99) mg/dL POC Glucose (mg/dL) 125 H 118 H (70-110) mg/dL Magnesium 2.5 H (1.5-2.4) mg/dL AST 64 H (14-35) U/L ALT 58 H (4-49) U/L Alkaline Phosphatase 138 H (38-126) U/L Troponin I (0.000-0.034) ng/mL Globulin 3.4 H (1.6-3.3) g/dL Albumin/Globulin Ratio 1.18 L (1.60-3.17) Ratio Assessment and Plan Time with Patient: Less than 30
[2023-01-17 22:26] VITALS: RESP 16
[2023-01-17] MEDS: LORazepam 1 MG TAB PO PRN (22:26)
[2023-01-18 01:57] VITALS: TEMP 97.9
[2023-01-18 02:10] LABS: Glucose,Whole Blood 103 mg/dL (70-110)
[2023-01-18] MEDS: SODIUM CHLORIDE 0.9% 1,000 ML IV SCH (03:28)
[2023-01-18 06:18] LABS: Glucose,Whole Blood 68 mg/dL (70-110)
[2023-01-18] MEDS: INSULIN ASPART (NovoLOG) 100 UNIT/ML VIAL SQ SCH (06:54)
[2023-01-18] MEDS: PENTOXIFYLLINE 400 MG TABLET.ER PO SCH (06:55)
[2023-01-18 06:59] LABS: Glucose,Whole Blood 77 mg/dL (70-110)
[2023-01-18 07:55] VITALS: BP 123/68; PULSE 59
[2023-01-18] MEDS: LOSARTAN 50 MG TAB PO SCH (08:49)
[2023-01-18] MEDS: LORazepam 1 MG TAB PO PRN (08:49)
[2023-01-18] MEDS: TAMSULOSIN 0.4 MG CAP.ER.24H PO SCH (08:50)
[2023-01-18] MEDS: RANOLAZINE 500 MG TAB.ER.12H PO SCH (08:50)
[2023-01-18] MEDS: CLOPIDOGREL 75 MG TAB PO SCH (08:50)
[2023-01-18] MEDS: SPIRONOLACTONE 25 MG TAB PO SCH (08:50)
[2023-01-18] MEDS: ATORVASTATIN 80 MG TAB PO SCH (08:50)
[2023-01-18] MEDS: MAGNESIUM OXIDE 400 MG TAB PO SCH (08:50)
[2023-01-18] MEDS: PANTOPRAZOLE 40 MG/10 ML VIAL IV SCH (08:52)
[2023-01-18] MEDS ORDERED: ATORVASTATIN 80 MG TAB PO SCH (09:00)
[2023-01-18] MEDS ORDERED: METOPROLOL SUCCINATE (ER) 25 MG TAB.ER.24H PO SCH (09:00)
[2023-01-18] MEDS ORDERED: allopurinoL 100 MG TAB PO SCH (09:00)
[2023-01-18 09:01] LABS: BUN/Creat Ratio 20.64 Ratio (12.00-20.00); Blood Urea Nitrogen 22.7 mg/dL (9.0-27.0); Chloride 98 mmol/L (96-109); Glucose 62 mg/dL (70-110); Potassium 4.6 mmol/L (3.5-5.5); Sodium 138 mmol/L (135-145)
[2023-01-18 09:02] LABS: ALT 52 U/L (10-49); AST 62 U/L (14-35); Albumin 3.6 g/dL (3.8-4.9); Alkaline Phosphatase 115 U/L (41-126); Carbon Dioxide 31.6 mmol/L (21.6-31.8); Total Bilirubin 0.7 mg/dL (0.3-1.2); Total Protein 6.6 g/dL (6.2-8.2)
[2023-01-18] MEDS: INSULIN PUMP MEAL BOLUS 1 UNIT MISC MISCELLANE SCH (09:23)
--- NOTE | 2023-01-18 09:53 | P.PN ---
Subjective Progress Note Date: 01/18/23 HISTORY OF PRESENT ILLNESS: This is a 72-year-old male follows with a city solicitor out of . He has a past medical history of coronary artery disease with previous CABG, cardiomyopathy, hypertension, hyperlipidemia, diabetes, back surgery with chronic pain, morbid obesity, and former nicotine dependence. We have been called to the preop area for preop cardiac clearance regarding elevated troponin. Patient was recently in the hospital from . He was seen by cardiology at that time for acute heart failure but patient signed out AMA. Echocardiogram obtained at that time revealed EF of 30-35%, moderate pulmonary hypertension with RVSP 45 mmHg. Severe biatrial dilatation. Dilated IVC with no respiratory collapse. States that he left the hospital because he was very anxious but he followed up with his PCP and saw the results of his test and told the patient that he had gallbladder problem. Patient states he was trying to lay down yesterday and the abdominal pain became very severe and he was advised by his PCP to come in the hospital for further evaluation. Patient also gives history of a recent hospitalization at [facility] for cellulitis and lower extremity edema. At this time, patient denies having any chest pain and no shortness of breath. He has lower extremity edema who and redness which she states is at his baseline. Patient is on all appropriate medications except noted to not be on a beta josiane. Patient states he has been on metoprolol in the past but unsure when this may have been discontinued. EKG sinus rhythm with first-degree block, incomplete left bundle blackbox or evidence of old AL, PVCs, no signs of acute ischemia Gallbladder ultrasound revealed cholelithiasis with thickening of the bladder wall. Correlate for acute cholecystitis. CBC unremarkable. INR 1.1. Sodium 135, potassium 4.2, chloride 95, CO2 31, BUN 22 creatinine 1.05. Blood sugar 217. ALT 51, alkaline phosphatase 127. Troponin 0.055. Lipase 165. Troponins from 01/14/2023: 0.07, 0.07, 0.052. Chest xray 01/14/2023: cardiomegaly and postoperative changes. Pulmonary vascular congestion with some interstitial edema, superimposed on chronic changes. Correlate for mild CHF. Current home cardiac medications include Aldactone 25 mg daily, Plavix 75 mg daily, Ranexa 500 mg twice a day, Lasix 40 mg daily, losartan 100 mg daily, Lipitor 80 mg daily Cardiac catheterization performed following a positive stress test and IVD firing at on 02/03/[address] Joaquin Stock revealed triple- vessel coronary artery disease, anatomy grossly unchanged from 2018. Patent BAKER/LAD and SVG/OM. Patent stents in the [place] RCA and SVG/OM. IFR of the RCA 0.96, nonsignificant stenosis. Severe LV dysfunction of 30%. Patient was planned to continue on ARB, beta josiane and Aldactone and consider SGLT2 inhibitor. 01/18 patient is seen today in follow-up on the observation unit. Patient is status post laparoscopic cholecystectomy, postoperative day #1.blood pressure 120/66, heart rate in the 80s and 90s, afebrile, pulse ox 94% on room air.patient has been resumed back on all his home cardiac medications. PHYSICAL EXAM: VITAL SIGNS: Reviewed. GENERAL: Well-developed in no acute distress. HEENT: Head is normocephalic. Pupils are equal, round. Sclerae anicteric. Mucous membranes of the mouth are moist. Neck supple. No JVD or thyromegaly LUNGS: Respirations even and unlabored. Lungs essentially clear to auscultation bilaterally. HEART: Regular rate and rhythm. S1 and S2 heard. EXTREMITIES: Normal range of motion. No clubbing or cyanosis. Peripheral pulses intact. 2+ bilateral lower extremity edema up into the thighs with mild erythema noted. ASSESSMENT: Cholelithiasis Chronic systolic heart failure Coronary artery disease with previous CABG 4 vessels Hypertension Hyperlipidemia Diabetes History of back surgery with chronic pain Morbid obesity Former nicotine dependence History of COPD History of Asbestos History of AICD implantation with previous ICD discharge (about 5 years ago per patient) PLAN: continue home cardiac medications patient follow-up with his primary city solicitor at [place] following discharge. Nurse practitioner note has been reviewed by physician. Signing provider agrees with the documented findings, assessment, and plan of care. Objective - Vital Signs Vital signs: Vital Signs Temp 97.9 F 01/18/23 00:56 Pulse 87 01/18/23 00:56 Resp 16 01/18/23 00:56 BP 120/66 01/18/23 00:56 Pulse Ox 94 L 01/18/23 00:56 FiO2 Intake & Output 01/17/23 01/18/23 01/18/23 18:59 06:59 18:59 Intake Total 868 Output Total 10 Balance 858 Weight 149.685 kg Intake: IV 750 Oral 118 Output: Estimated Blood Loss 10 Other: Voiding Method Toilet # Voids 2 1 - Labs CBC & Chem 7: 01/17/23 07:21 01/18/23 05:26 Labs: Abnormal Lab Results - Last 24 Hours (Table) 01/17/23 01/17/23 01/17/23 Range/Units 07:21 07:21 09:25 MCHC 31.0 L (32.0-37.0) g/dL Est GFR (CKD-EPI) 58 L (>=60) POC Glucose (mg/dL) 125 H (70-110) mg/dL Magnesium 2.5 H (1.5-2.4) mg/dL AST 64 H (14-35) U/L ALT 58 H (10-49) U/L Alkaline Phosphatase 138 H (41-126) U/L Globulin 3.4 H (1.6-3.3) g/dL Albumin/Globulin Ratio 1.18 L (1.60-3.17) Ratio 01/17/23 01/17/23 01/17/23 Range/Units 13:26 17:20 20:00 MCHC (32.0-37.0) g/dL Est GFR (CKD-EPI) (>=60) POC Glucose (mg/dL) 118 H 215 H 241 H (70-110) mg/dL Magnesium (1.5-2.4) mg/dL AST (14-35) U/L ALT (10-49) U/L Alkaline Phosphatase (41-126) U/L Globulin (1.6-3.3) g/dL Albumin/Globulin Ratio (1.60-3.17) Ratio 01/18/23 Range/Units 06:16 MCHC (32.0-37.0) g/dL Est GFR (CKD-EPI) (>=60) POC Glucose (mg/dL) 68 L (70-110) mg/dL Magnesium (1.5-2.4) mg/dL AST (14-35) U/L ALT (10-49) U/L Alkaline Phosphatase (41-126) U/L Globulin (1.6-3.3) g/dL Albumin/Globulin Ratio (1.60-3.17) Ratio Microbiology - Last 24 Hours (Table) 01/16/23 22:44 Blood Culture - Preliminary Blood 01/16/23 22:40 Blood Culture - Preliminary Blood
[2023-01-18 10:01] LABS: Basophils # (A) 0.05 X 10*3/uL (0.00-0.10); Basophils % (A) 0.5 %; Eosinophils # (A) 0.14 X 10*3/uL (0.04-0.35); Eosinophils % (A) 1.5 %; HCT 41.6 % (39.6-50.0); HGB 13.1 g/dL (13.0-17.0); Lymphocytes # (A) 0.86 X 10*3/uL (0.90-5.00); Lymphocytes % (A) 9.1 %; MCH 29.3 pg (27.0-32.0); MCHC 31.5 g/dL (32.0-37.0); MCV 93.1 FL (80.0-97.0); Mean Platelet Volume 9.5 FL (9.5-12.2); Monocytes # (A) 1.08 X 10*3/uL (0.20-1.00); Monocytes % (A) 11.4 %; NRBC Per 100 WBC 0 X 10*3/uL (0.00-0.01); Neutrophils # (A) 7.27 X 10*3/uL (1.80-7.70); Neutrophils % (A) 77.1 %; Platelet Count 182 X 10*3/uL (140-440); RBC 4.47 X 10*6/uL (4.40-5.60); RDW 13.7 % (11.5-14.5); WBC 9.44 X 10*3/uL (4.50-10.00)
[2023-01-18 12:15] LABS: Glucose,Whole Blood 122 mg/dL (70-110)
--- NOTE | 2023-01-18 14:00 | P.DS ---
Providers Date of admission: 01/16/23 20:40 Expected date of discharge: 01/18/23 Attending physician: Cornelius Delarosa Consults: 01/17/23 08:21 Consult Physician Stat Consulting Provider: Chuck Dominguez Consult Reason/Comments: CARDIAC CLEARANCE Do you want consulting provider notified?: Yes 01/17/23 09:58 Consult Physician Routine Consulting Provider: Sarah Henderson Consult Reason/Comments: medical management Do you want consulting provider notified?: Yes Primary care physician: Olvin LeahyEstela Hospital Course: Discharge diagnosis 1. Acute cholecystitis status post laparoscopic cholecystectomy Hospital course This is a 72-year-old male who presented with right upper quadrant abdominal pain and ultrasound showing evidence of cholelithiasis with gallbladder wall thickening correlate for acute cholecystitis. Patient is status post laparoscopic cholecystectomy. He tolerated surgery well. He is tolerating diet. His pain is controlled. He has been up and ambulating. He is having flatus. Patient does have bruising around the incision at epigastric area. Soft. nontender. Patient is stable for discharge. Please refer to chart for any further details. Physician Health And Social Care Teacher note has been reviewed by physician. Signing provider agrees with the documented findings, assessment, and plan of care. Patient Condition at Discharge: Stable Plan - Discharge Summary New Discharge Prescriptions: New Metoprolol Succinate (ER) [Toprol XL] 25 mg PO DAILY #30 tab oxyCODONE HCL [OxyIR] 5 mg PO Q6H PRN 3 Days #12 tab PRN Reason: Pain Acetaminophen Tab [Tylenol Tab] 650 mg PO Q4H PRN #30 tablet PRN Reason: Pain Continue allopurinoL [Zyloprim] 100 mg PO DAILY rOPINIRole HCL [Requip] 3 mg PO BID Atorvastatin [Lipitor] 80 mg PO DAILY Diazepam [Valium] 10 mg PO BID PRN PRN Reason: SLEEP/ANXIETY Losartan Potassium [Cozaar] 100 mg PO DAILY Baclofen [Lioresal] 10 mg PO TID LORazepam [Ativan] 1 mg PO BID PRN PRN Reason: ANXIETY THAT RAISES SUGAR Ranolazine [Ranexa] 500 mg PO BID Tamsulosin [Flomax] 0.4 mg PO BID Triamcinolone 0.1% Lotion [Kenalog 0.1% Lotion] 1 applic TOPICAL BID PRN PRN Reason: Rash Mupirocin Calcium 2% Cream [Bactroban 2% Cream] 1 applic TOPICAL BID PRN PRN Reason: Rash Clopidogrel [Plavix] 75 mg PO DAILY Furosemide [Lasix] 40 mg PO DAILY Insulin Lispro [humaLOG Kwikpen] 1 - 25 unit SQ TID-W/MEALS PRN PRN Reason: PUMP FAILURE INSULIN LISPRO (For Pump) [humaLOG (For Pump)] 0.01 units SQ-PUMP CONTINUOUS Magnesium Oxide [Salomon] 500 mg PO BID Pentoxifylline [TRENtal] 400 mg PO AC-BID Spironolactone [Aldactone] 25 mg PO DAILY Albuterol Inhaler [Ventolin Hfa Inhaler] 1 - 2 puff INHALATION RT-Q6H PRN PRN Reason: Shortness Of Breath Changed Sulfamethox-Tmp 800-160Mg [Bactrim DS 800-160 mg] 1 tab PO Q12HR #0 Discharge Medication List allopurinoL [Zyloprim] 100 mg PO DAILY 06/24/13 [History] Atorvastatin [Lipitor] 80 mg PO DAILY 05/05/15 [History] Baclofen [Lioresal] 10 mg PO TID 05/05/15 [History] Diazepam [Valium] 10 mg PO BID PRN 05/05/15 [History] Losartan Potassium [Cozaar] 100 mg PO DAILY 05/05/15 [History] rOPINIRole HCL [Requip] 3 mg PO BID 05/05/15 [History] Albuterol Inhaler [Ventolin Hfa Inhaler] 1 - 2 puff INHALATION RT-Q6H PRN 01/14/23 [History] Clopidogrel [Plavix] 75 mg PO DAILY 01/14/23 [History] Furosemide [Lasix] 40 mg PO DAILY 01/14/23 [History] INSULIN LISPRO (For Pump) [humaLOG (For Pump)] 0.01 units SQ-PUMP CONTINUOUS 01/14/23 [History] Insulin Lispro [humaLOG Kwikpen] 1 - 25 unit SQ TID-W/MEALS PRN 01/14/23 [History] LORazepam [Ativan] 1 mg PO BID PRN 01/14/23 [History] Magnesium Oxide [Salomon] 500 mg PO BID 01/14/23 [History] Mupirocin Calcium 2% Cream [Bactroban 2% Cream] 1 applic TOPICAL BID PRN 01/14/23 [History] Pentoxifylline [TRENtal] 400 mg PO AC-BID 01/14/23 [History] Ranolazine [Ranexa] 500 mg PO BID 01/14/23 [History] Spironolactone [Aldactone] 25 mg PO DAILY 01/14/23 [History] Tamsulosin [Flomax] 0.4 mg PO BID 01/14/23 [History] Triamcinolone 0.1% Lotion [Kenalog 0.1% Lotion] 1 applic TOPICAL BID PRN 01/14/23 [History] Acetaminophen Tab [Tylenol Tab] 650 mg PO Q4H PRN #30 tablet 01/18/23 [Rx] Metoprolol Succinate (ER) [Toprol XL] 25 mg PO DAILY #30 tab 01/18/23 [Rx] Sulfamethox-Tmp 800-160Mg [Bactrim DS 800-160 mg] 1 tab PO Q12HR #0 01/18/23 [Rx] oxyCODONE HCL [OxyIR] 5 mg PO Q6H PRN 3 Days #12 tab 01/18/23 [Rx] Follow up Appointment(s)/Referral(s): Olvin Palmer DO [Primary Care Provider] - 1-2 days Cornelius Delarosa MD [STAFF PHYSICIAN] - 01/30/23 1:00 pm Patient Instructions/Handouts: *Surgery [facility] - Laparoscopic Cholecystectomy Discharge Instructions Activity/Diet/Wound Care/Special Instructions: Continue home cardiac medications, metoprolol has been added. Please follow up with your grocery clerk stocking in one week. No driving while taking OxyIR No lifting over 10 pounds Shower daily. No soaking or tub baths for 2 weeks Very light activity until you are reevaluated at your follow up appointment with your surgeon Discharge Disposition: HOME SELF-CARE
--- NOTE | 2023-01-20 16:46 | P.PN ---
Subjective Progress Note Date: 01/18/23 This is a 72 year old male with medical history of coronary artery disease post quadruple CABG, AICD, hypertension, diabetes type 2 insulin-dependent insulin pump, history of back surgery and chronic pain, restless leg syndrome and prior history of smoking. Patient sent back in to the hospital after leaving AMA yesterday from his PCP Dr. Palmer with concern for acute cholecystitis and gallstones. Patient comes back in with increasing abdominal pain throughout the day yesterday and was admitted under general surgery with cardiology consultation placed for surgical clearance. Denies any fever or chills, no shortness of breath. Patient has known cardiomyopathy with EF 30% redemonstrated on echocardiogram completed here on 01/15/2023 which reveals an EF of 30-35% severely reduced global LV systolic function and dilated RV with signs of moderate pulmonary hypertension, PPM wire noticed and RV with severe biatrial dilation and dilated IVC with no respiratory collapse. Patient had liver ultrasound completed previous admission revealing hepatomegaly 20.5 cm and entire lumen appeared filled with gallstones, wall borderline thickened which may reflect chronic cholecystitis. No biliary ductal dilation. Consider HIDA scan. He left AMA prior to further evaluation and surgical consultation. Wanted to see his heading machine operator and PCP. He was sent back in for evaluation.On admission had gallbladder U/S completed showing cholelisthiasis with thickening of the bladder wall. Correlate for acute cholecystitis. Patient also has lower extremity edema which he states is normal for him with chronic hyperpigmentation likely chronic venous insufficiency. Scheduled to undergo gallbladder removal today. 01/18/2023 Patient was seen in follow up for medical consultation. He is postoperative day #1 laproscopic cholecystectomy not having any abdominal passing gas and did have a bowel movement. He is stating he will go home today if he is not discharged he will leave AMA. He has been started on beta josiane and optimized on medical therapy for his known cardiomyopathy. His creatinine is 1.1. He needs to see his PCP and his known heading machine operator on discharge. REVIEW OF SYSTEMS: CONSTITUTIONAL: No fever, no malaise, no fatigue. HEENT: No recent visual problems or hearing problems. Denied any sore throat. CARDIOVASCULAR: No chest pain, orthopnea, PND, no palpitations, no syncope. PULMONARY: No shortness of breath, no cough, no hemoptysis. GASTROINTESTINAL: No diarrhea, no nausea, no vomiting. Reports abdominal pain. NEUROLOGICAL: No headaches, no weakness, no numbness. PHYSICAL EXAMINATION: GENERAL: The patient is alert and oriented x3, not in any acute distress. Well developed, well nourished. HEENT: Pupils are round and equally reacting to light. EOMI. No scleral icterus. No conjunctival pallor. Normocephalic, atraumatic. No pharyngeal erythema. No thyromegaly. CARDIOVASCULAR: S1 and S2 present. No murmurs, rubs, or gallops. PULMONARY: Chest is clear to auscultation, no wheezing or crackles. ABDOMEN: Soft, nontender, nondistended, normoactive bowel sounds. No palpable organomegaly. Post surgical abdomen. MUSCULOSKELETAL: No joint swelling or deformity. EXTREMITIES: No cyanosis, clubbing, or pedal edema. NEUROLOGICAL: Gross neurological examination did not reveal any focal deficits. SKIN: No rashes. Erythema lower extremity with scabbed ulceration to the left sh in. Assessment and Plan Acute choleystitis and cholelisthiasis post op day #1 Transaminitis due to above. Chronic systolic heart failure with EF 30%. Coronary artery history of quadruple CABG Diabetes type 2 insulin-dependent on insulin pump which will be continued including accuchecks ACHS and sliding scale insulin ordered. Hx of COPD with no acute exacerbation Hx of AICD and cardiomyopathy Hypertension Chronic pain History of gout Restless leg syndrome Morbid obesity BMI 45.2 Former smoker GI prophylaxis DVT prophylaxis Full Code For the above mentioned medical problems home medications have been ordered. Patient uses insulin pump for basal rate and will continue with accuechecks ACHS and sliding scale insulin. Pain management in place. Cardiology following. Thank you for this consultation. Patient will be discharged home by primary service. The impression and plan of care has been dictated by Palmira Salomon Nurse Practitioner as directed. Dr. Cem MD I have performed a history and physical examination and medical decision making of this patient, discussed the same with the dictator, and agree with the dictators assessment and plan as written, documented as a scribe. Based on total visit time, I have performed more than 50% of this visit. Objective - Vital Signs Vital signs: Vital Signs Temp 97.9 F 01/18/23 07:00 Pulse 59 L 01/18/23 07:00 Resp 16 01/18/23 07:00 BP 123/68 01/18/23 07:00 Pulse Ox 93 L 01/18/23 07:00 FiO2 - Labs CBC & Chem 7: 01/18/23 05:26 01/18/23 05:26 Labs: Microbiology - Last 24 Hours (Table) 01/16/23 22:44 Blood Culture - Preliminary Blood 01/16/23 22:40 Blood Culture - Preliminary Blood
== END 2023-01-18 12:55 | disposition home or self-care (01) ==
LOC: EC 14:45 → 6NMEDSUR 20:40
PROVIDERS: ADMIT Surgery; ATTEND Surgery
DX: K80.12 Calculus of gallbladder with acute and chronic cholecystitis without obstruction (principal); E11.9 Type 2 diabetes mellitus without complications; I11.0 Hypertensive heart disease with heart failure; I50.22 Chronic systolic (congestive) heart failure; G89.29 Other chronic pain; I42.9 Cardiomyopathy, unspecified; R74.01 Elevation of levels of liver transaminase levels; I25.10 Atherosclerotic heart disease of native coronary artery without angina pectoris; J44.9 Chronic obstructive pulmonary disease, unspecified; M10.9 Gout, unspecified; G25.81 Restless legs syndrome; E78.5 Hyperlipidemia, unspecified; I25.2 Old myocardial infarction; E66.01 Morbid (severe) obesity due to excess calories; Z68.42 Body mass index [BMI] 45.0-49.9, adult; Z87.891 Personal history of nicotine dependence; Z95.1 Presence of aortocoronary bypass graft; Z95.810 Presence of automatic (implantable) cardiac defibrillator; Z96.41 Presence of insulin pump (external) (internal); Z79.02 Long term (current) use of antithrombotics/antiplatelets; Z79.4 Long term (current) use of insulin; Z79.899 Other long term (current) drug therapy
CPT/HCPCS: 96361 ×3; 96375 ×2; 96365; 96366; 99285; 80053 ×3; 82150; 83690; 83735; 84100; 84484; 85025 ×3; 85610; 85730; 87040; 83036; 76705; 47562; G0378 ×3; J2250; J0330; J2710; J2405; J0690; J2001; J3010; J0295; J1885; C9113; J1170; J0665; J1805; 88304

== ENCOUNTER 2023-01-21 16:10 | Emergency (ER) | payer MEDICARE ==
[2023-01-21 16:26] VITALS: RESP 20
--- NOTE | 2023-01-21 16:42 | ED ---
General Adult HPI - General Chief complaint: Recheck/Abnormal Lab/Rx Stated complaint: Post Op Comp Time Seen by Provider: 01/21/23 16:23 Source: patient, RN notes reviewed, old records reviewed Mode of arrival: ambulatory Limitations: no limitations - History of Present Illness Initial comments: 72-year-old male presenting with drainage from laparoscopic surgical site. Patient had labs Abdominal surgery on the . He's been doing quite well postoperatively. He noticed some increased drainage from his umbilical incision. This was light pink. This occurred after sitting up from the computer. No fever. No worsening pain. The drainage has seemed to decrease since the initial event. - Related Data Home Medications Medication Instructions Recorded Confirmed allopurinoL [Zyloprim] 100 mg PO DAILY 06/24/13 01/16/23 Atorvastatin [Lipitor] 80 mg PO DAILY 05/05/15 01/16/23 Baclofen [Lioresal] 10 mg PO TID 05/05/15 01/16/23 Diazepam [Valium] 10 mg PO BID PRN 05/05/15 01/16/23 Losartan Potassium [Cozaar] 100 mg PO DAILY 05/05/15 01/16/23 rOPINIRole HCL [Requip] 3 mg PO BID 05/05/15 01/16/23 Albuterol Inhaler [Ventolin Hfa 1 - 2 puff INHALATION RT-Q6H PRN 01/14/23 01/16/23 Inhaler] Clopidogrel [Plavix] 75 mg PO DAILY 01/14/23 01/16/23 Furosemide [Lasix] 40 mg PO DAILY 01/14/23 01/16/23 INSULIN LISPRO (For Pump) [humaLOG 0.01 units SQ-PUMP CONTINUOUS 01/14/23 01/16/23 (For Pump)] Insulin Lispro [humaLOG Kwikpen] 1 - 25 unit SQ TID-W/MEALS PRN 01/14/23 01/16/23 LORazepam [Ativan] 1 mg PO BID PRN 01/14/23 01/16/23 Magnesium Oxide [Salomon] 500 mg PO BID 01/14/23 01/16/23 Mupirocin Calcium 2% Cream 1 applic TOPICAL BID PRN 01/14/23 01/16/23 [Bactroban 2% Cream] Pentoxifylline [TRENtal] 400 mg PO AC-BID 01/14/23 01/16/23 Ranolazine [Ranexa] 500 mg PO BID 01/14/23 01/16/23 Spironolactone [Aldactone] 25 mg PO DAILY 01/14/23 01/16/23 Tamsulosin [Flomax] 0.4 mg PO BID 01/14/23 01/16/23 Triamcinolone 0.1% Lotion [Kenalog 1 applic TOPICAL BID PRN 01/14/23 01/16/23 0.1% Lotion] Previous Rx's Medication Instructions Recorded Acetaminophen Tab [Tylenol Tab] 650 mg PO Q4H PRN #30 tablet 01/18/23 Metoprolol Succinate (ER) [Toprol 25 mg PO DAILY #30 tab 01/18/23 XL] Sulfamethox-Tmp 800-160Mg [Bactrim 1 tab PO Q12HR #0 01/18/23 DS 800-160 mg] oxyCODONE HCL [OxyIR] 5 mg PO Q6H PRN 3 Days #12 tab 01/18/23 Allergies Allergy/AdvReac Type Severity Reaction Status Date / Time No Known Allergies Allergy Verified 01/21/23 16:22 Review of Systems ROS Statement: Those systems with pertinent positive or pertinent negative responses have been documented in the HPI. ROS Other: All systems not noted in ROS Statement are negative. Past Medical History Past Medical History: Diabetes Mellitus, Hypertension Additional Past Medical History / Comment(s): vertigo, insulin pump Last Myocardial Infarction Date:: 1989 History of Any Multi-Drug Resistant Organisms: None Reported Past Surgical History: Appendectomy, Back Surgery, Coronary Bypass/CABG, Joint Replacement, Orthopedic Surgery, Tonsillectomy Additional Past Surgical History / Comment(s): HAS HAD ATTEMPTED SEVERAL COLONOSCOPIES IN THE PAST MONTHS, HOWEVER, BOWEL WAS NOT TOTALLY CLEAN. 06-03-15 total rt shoulder Past Anesthesia/Blood Transfusion Reactions: No Reported Reaction Past Psychological History: No Psychological Hx Reported Smoking Status: Former smoker Past Alcohol Use History: Occasional Past Drug Use History: None Reported - Past Family History Mother Family Medical History: Cancer Additional Family Medical History / Comment(s): breast bowel liver ca Father Family Medical History: Myocardial Infarction ([place]) Additional Family Medical History / Comment(s): first mi at age 32 and w/3rd mi at age 44 General Exam Limitations: no limitations General appearance: alert, in no apparent distress Head exam: Present: atraumatic, normocephalic Eye exam: Present: normal appearance, PERRL Neck exam: Present: normal inspection. Absent: tenderness Respiratory exam: Present: normal lung sounds bilaterally. Absent: respiratory distress, wheezes GI/Abdominal exam: Present: soft, other (Ecchymosis postoperatively. There is minimal serosanguineous drainage from the incision above the umbilicus. No erythema. No periods. Incisions appear well-healed.). Absent: distended, tenderness Extremities exam: Present: normal inspection, normal capillary refill Neurological exam: Present: alert, oriented X3, CN II-XII intact Psychiatric exam: Present: normal affect, normal mood Course Vital Signs 01/21/23 16:20 Temperature 98.1 F Pulse Rate 92 Respiratory 20 Rate Blood Pressure 128/70 O2 Sat by Pulse 97 Oximetry Medical Decision Making - Medical Decision Making Was pt. sent in by a medical professional or institution (, PA, COOLER WORKER, urgent care, hospital, or assisted...) When possible be specific @ -No Did you speak to anyone other than the patient for history (EMS, parent, family, police, friend...)? What history was obtained from this source @ -No Did you review nursing and triage notes (agree or disagree)? Why? @ -I reviewed and agree with nursing and triage notes Were old charts reviewed (outside hosp., previous admission, EMS record, old EKG, old radiological studies, urgent care reports/EKG's, assisted records)? Report findings @ -No old charts were reviewed Differential Diagnosis (chest pain, altered mental status, abdominal pain women, abdominal pain men, vaginal bleeding, weakness, fever, dyspnea, syncope, headache, dizziness, GI bleed, back pain, seizure, CVA, palpatations, mental health, musculoskeletal)? @Postoperative infection, postoperative seroma EKG interpreted by me (3pts min.). @ -As above X-rays interpreted by me (1pt min.). @ -None done CT interpreted by me (1pt min.). @ -None done U/S interpreted by me (1pt. min.). @ -None done What testing was considered but not performed or refused? (CT, X-rays, U/S, labs)? Why? @ -None What meds were considered but not given or refused? Why? @ -None Did you discuss the management of the patient with other professionals (professionals i.e. , PA, COOLER WORKER, lab, RT, psych nurse, social security assessor, business intelligence etl developer, teacher, ground defence officer, director of casework)? Give summary @ -No Was smoking cessation discussed for >3mins.? @ -No Was critical care preformed (if so, how long)? @ -No Were there social determinants of health that impacted care today? How? (Homelessness, low income, unemployed, alcoholism, drug addiction, transportation, low edu. Level, literacy, decrease access to med. care, care home, rehab)? @ -No Was there de-escalation of care discussed even if they declined (Discuss DNR or withdrawal of care, Hospice)? DNR status @ -No What co-morbidities impacted this encounter? (DM, HTN, Smoking, COPD, CAD, Cancer, CVA, ARF, Chemo, Hep., AIDS, mental health diagnosis, sleep apnea, morbid obesity)? @ -4 days postop laparoscopic cholecystectomy Was patient admitted / discharged? Hospital course, mention meds given and route, prescriptions, significant lab abnormalities, going to OR and other pertinent info. @ 72 year old male with serosanguineous drainage from periumbilical incision. The incision is well-healed without signs of infection. There is no abdominal tenderness. There is no fever. Vital signs are stable. The drainage has si gnificantly reduced since the initial event. I do suspect that this was seroma related. The patient's given return parameters and instructed to follow-up with his surgeon tomorrow. Undiagnosed new problem with uncertain prognosis? @ -No Drug Therapy requiring intensive monitoring for toxicity (Heparin, Nitro, Insulin, Cardizem)? @ -No Were any procedures done? @ -No Diagnosis/symptom? @ -[Drainage from incision site Acute, or Chronic, or Acute on Chronic? @acute Uncomplicated (without systemic symptoms) or Complicated (systemic symptoms)? @ -default Side effects of treatment? @ -No Exacerbation, Progression, or Severe Exacerbation? @ -No Poses a threat to life or bodily function? How? (Chest pain, [place], [place], pneumonia, PE, COPD, DKA, ARF, appy, cholecystitis, CVA, Diverticulitis, Homicidal, Suicidal, threat to staff... and all critical care pts) @ -No Disposition Clinical Impression: Status post cholecystectomy, Postoperative seroma Disposition: HOME SELF-CARE Condition: Good Instructions (If sedation given, give patient instructions): Seroma (DC) Is patient prescribed a controlled substance at d/c from ED?: No Referrals: Olvin Palmer DO [Primary Care Provider] - 1-2 days Cornelius Delarosa MD [STAFF PHYSICIAN] - 1-2 days Time of Disposition: 16:49
[2023-01-21 17:12] VITALS: BP 150/75; PULSE 91; TEMP 98.3
== END 2023-01-21 17:01 | disposition home or self-care (01) ==
LOC: EC 16:10
DX: L76.34 Postprocedural seroma of skin and subcutaneous tissue following other procedure (principal); Z90.49 Acquired absence of other specified parts of digestive tract; E11.9 Type 2 diabetes mellitus without complications; I10 Essential (primary) hypertension; I25.2 Old myocardial infarction; Z87.891 Personal history of nicotine dependence; Z79.4 Long term (current) use of insulin; Z79.899 Other long term (current) drug therapy; Z79.02 Long term (current) use of antithrombotics/antiplatelets
CPT/HCPCS: 99283

== ENCOUNTER 2023-01-22 13:24 | Emergency (ER) | payer MEDICARE ==
[2023-01-22 13:30] VITALS: RESP 18
--- NOTE | 2023-01-22 15:07 | ED ---
General Adult HPI - General Source: patient, RN notes reviewed, old records reviewed Mode of arrival: ambulatory Limitations: no limitations <Kody Crump - Last Filed: 01/22/23 15:05> <Yonas Mckeon - Last Filed: 01/22/23 18:02> - General Chief complaint: Wound/Laceration Stated complaint: incision are issue Time Seen by Provider: 01/22/23 14:50 - History of Present Illness Initial comments: This is a 72-year-old male that comes in complaining that he is having some issues with his incision site from his surgery last Sunday. Patient states he had a course of by Dr. Delarosa and went in and starting yesterday the incision site started to leak fluid at a fairly rapid rate and he cannot keep any of his clothes or dressings dry. Patient states his abdomen is also distended compared to his baseline. Patient denies any fever chills. Patient denies any significant abdominal pain. Patient denies any nausea vomiting or diarrhea. Patient denies chest pain or difficulty breathing. (Kody Crump) - Related Data Home Medications Medication Instructions Recorded Confirmed allopurinoL [Zyloprim] 100 mg PO DAILY 06/24/13 01/16/23 Atorvastatin [Lipitor] 80 mg PO DAILY 05/05/15 01/16/23 Baclofen [Lioresal] 10 mg PO TID 05/05/15 01/16/23 Diazepam [Valium] 10 mg PO BID PRN 05/05/15 01/16/23 Losartan Potassium [Cozaar] 100 mg PO DAILY 05/05/15 01/16/23 rOPINIRole HCL [Requip] 3 mg PO BID 05/05/15 01/16/23 Albuterol Inhaler [Ventolin Hfa 1 - 2 puff INHALATION RT-Q6H PRN 01/14/23 01/16/23 Inhaler] Clopidogrel [Plavix] 75 mg PO DAILY 01/14/23 01/16/23 Furosemide [Lasix] 40 mg PO DAILY 01/14/23 01/16/23 INSULIN LISPRO (For Pump) [humaLOG 0.01 units SQ-PUMP CONTINUOUS 01/14/23 01/16/23 (For Pump)] Insulin Lispro [humaLOG Kwikpen] 1 - 25 unit SQ TID-W/MEALS PRN 01/14/23 01/16/23 LORazepam [Ativan] 1 mg PO BID PRN 01/14/23 01/16/23 Magnesium Oxide [Salomon] 500 mg PO BID 01/14/23 01/16/23 Mupirocin Calcium 2% Cream 1 applic TOPICAL BID PRN 01/14/23 01/16/23 [Bactroban 2% Cream] Pentoxifylline [TRENtal] 400 mg PO AC-BID 01/14/23 01/16/23 Ranolazine [Ranexa] 500 mg PO BID 01/14/23 01/16/23 Spironolactone [Aldactone] 25 mg PO DAILY 01/14/23 01/16/23 Tamsulosin [Flomax] 0.4 mg PO BID 01/14/23 01/16/23 Triamcinolone 0.1% Lotion [Kenalog 1 applic TOPICAL BID PRN 01/14/23 01/16/23 0.1% Lotion] Previous Rx's Medication Instructions Recorded Acetaminophen Tab [Tylenol Tab] 650 mg PO Q4H PRN #30 tablet 01/18/23 Metoprolol Succinate (ER) [Toprol 25 mg PO DAILY #30 tab 01/18/23 XL] Sulfamethox-Tmp 800-160Mg [Bactrim 1 tab PO Q12HR #0 01/18/23 DS 800-160 mg] oxyCODONE HCL [OxyIR] 5 mg PO Q6H PRN 3 Days #12 tab 01/18/23 Allergies Allergy/AdvReac Type Severity Reaction Status Date / Time No Known Allergies Allergy Verified 01/21/23 16:22 Review of Systems ROS Other: All systems not noted in ROS Statement are negative. <Kody Crump - Last Filed: 01/22/23 15:05> ROS Other: All systems not noted in ROS Statement are negative. <Yonas Mckeon - Last Filed: 01/22/23 18:02> ROS Statement: Those systems with pertinent positive or pertinent negative responses have been documented in the HPI. Past Medical History Past Medical History: Diabetes Mellitus, Hypertension Additional Past Medical History / Comment(s): vertigo, insulin pump Last Myocardial Infarction Date:: 1989 History of Any Multi-Drug Resistant Organisms: None Reported Past Surgical History: Appendectomy, Back Surgery, Cholecystectomy, Coronary Bypass/CABG, Joint Replacement, Orthopedic Surgery, Tonsillectomy Additional Past Surgical History / Comment(s): HAS HAD ATTEMPTED SEVERAL COLONOSCOPIES IN THE PAST MONTHS, HOWEVER, BOWEL WAS NOT TOTALLY CLEAN. 06-03-15 total rt shoulder Past Anesthesia/Blood Transfusion Reactions: No Reported Reaction Past Psychological History: No Psychological Hx Reported Smoking Status: Former smoker Past Alcohol Use History: Occasional Past Drug Use History: None Reported - Past Family History Mother Family Medical History: Cancer Additional Family Medical History / Comment(s): breast bowel liver ca Father Family Medical History: Myocardial Infarction ([place]) Additional Family Medical History / Comment(s): first mi at age 32 and w/ 3rd mi at age 44 <Kody Crump - Last Filed: 01/22/23 15:05> General Exam Limitations: no limitations <Kody Crump - Last Filed: 01/22/23 15:05> - General Exam Comments Initial Comments: GENERAL: Patient is well-developed and well-nourished. Patient is nontoxic and well- hydrated and is in mild distress. ENT: Neck is soft and supple. No significant lymphadenopathy is noted. Oropharynx is clear. Moist mucous membranes. Neck has full range of motion without eliciting any pain. EYES: The sclera were anicteric and conjunctiva were pink and moist. Extraocular movements were intact and pupils were equal round and reactive to light. Eyelids were unremarkable. PULMONARY: Unlabored respirations. Good breath sounds bilaterally. No audible rales rho nchi or wheezing was noted. CARDIOVASCULAR: There is a regular rate and rhythm without any murmurs gallops or rubs. ABDOMEN: Patient's abdomen is distended. Patient has an incision above the umbilicus in the distal aspect of that incision is leaking serosanguineous fluid. Patient's abdomen also has quite a bit of ecchymosis. Patient states he is on Plavix SKIN: Skin is clear with no lesions or rashes and otherwise unremarkable. NEUROLOGIC: Patient is alert and oriented x3. Cranial nerves II through XII are grossly intact. Motor and sensory are also intact. Normal speech, volume and content. Symmetrical smile. MUSCULOSKELETAL: Normal extremities with adequate strength and full range of motion. LYMPHATICS: No significant lymphadenopathy is noted PSYCHIATRIC: Normal psychiatric evaluation. (Kody Crump) Course Vital Signs 01/22/23 01/22/23 13:28 17:10 Temperature 98.0 F Pulse Rate 96 87 Respiratory 18 18 Rate Blood Pressure 117/71 127/86 O2 Sat by Pulse 94 L 95 Oximetry Medical Decision Making - Lab Data Result diagrams: 01/22/23 15:32 01/22/23 15:32 <Yonas Mckeon - Last Filed: 01/22/23 18:02> - Medical Decision Making I received this patient as a sign out, pending the CT result. I reviewed the CT abdomen and pelvis which by my interpretation does not show free air, bowel obstruction. Results were reviewed with the patient, who requested to go home. I discussed case with Dr. Delarosa, who states he will have the patient follow- up in clinic next week. Discussed appropriate return parameters and follow-up. Was patient admitted / discharged? Hospital course, mention meds given and [place], prescriptions, significant lab abnormalities, going to OR and other pertinent info. @ -[See the course above Undiagnosed new problem with uncertain prognosis? @ -[No] Drug Therapy requiring intensive monitoring for toxicity (Heparin, Nitro, Insulin, Cardizem)? @ -[No] Were any procedures done? @ -[No] Diagnosis/symptom? @ -[Probable seroma/hematoma drainage Acute, or Chronic, or Acute on Chronic? @ -[Acute Uncomplicated (without systemic symptoms) or Complicated (systemic symptoms)? @ -[Uncomplicated Side effects of treatment? @ -[No] Exacerbation, Progression, or Severe Exacerbation? @ -[No] Poses a threat to life or bodily function? How? (Chest pain, [place], [place], pneumonia, PE, COPD, DKA, ARF, appy, cholecystitis, CVA, Diverticulitis, Homicidal, Suicidal, threat to staff... and all critical care pts) @ -[No] (Yonas Mckeon) - Lab Data Lab Results 01/22/23 01/22/23 01/22/23 Range/Units 15:32 15:32 15:32 WBC 9.0 (3.8-10.6) k/uL RBC 4.59 (4.30-5.90) m/uL Hgb 13.8 (13.0-17.5) gm/dL Hct 42.6 (39.0-53.0) % MCV 92.9 (80.0-100.0) fL MCH 30.2 (25.0-35.0) pg MCHC 32.5 (31.0-37.0) g/dL RDW 13.9 (11.5-15.5) % Plt Count 190 (150-450) k/uL MPV 7.1 Neutrophils % 74 % Lymphocytes % 10 % Monocytes % 8 % Eosinophils % 5 % Basophils % 0 % Neutrophils # 6.6 (1.3-7.7) k/uL Lymphocytes # 0.9 L (1.0-4.8) k/uL Monocytes # 0.7 (0-1.0) k/uL Eosinophils # 0.5 (0-0.7) k/uL Basophils # 0.0 (0-0.2) k/uL Hypochromasia Slight PT 11.3 (10.0-12.5) sec INR 1.0 (<1.2) APTT 26.9 (22.0-30.0) sec Sodium 134 L (137-145) mmol/L Potassium 4.7 (3.5-5.1) mmol/L Chloride 97 L (98-107) mmol/L Carbon Dioxide 26 (22-30) mmol/L Anion Gap 11 mmol/L BUN 23 H (9-20) mg/dL Creatinine 1.35 H (0.66-1.25) mg/dL Est GFR (CKD-EPI)AfAm 59 (>60 ml/min/1.73 sqM) Est GFR (CKD-EPI)NonAf 51 (>60 ml/min/1.73 sqM) Glucose 99 (74-99) mg/dL Calcium 8.7 (8.4-10.2) mg/dL Total Bilirubin 1.0 (0.2-1.3) mg/dL AST 52 (17-59) U/L ALT 45 (4-49) U/L Alkaline Phosphatase 114 (38-126) U/L Total Protein 7.2 (6.3-8.2) g/dL Albumin 3.6 (3.5-5.0) g/dL Amylase 51 (30-110) U/L Lipase 29 (23-300) U/L Urine Color Urine Appearance (Clear) Urine pH (5.0-8.0) Ur Specific [place] (1.001-1.035) Urine Protein (Negative) Urine Glucose (UA) (Negative) Urine Ketones (Negative) Urine Blood (Negative) Urine Nitrite (Negative) Urine Bilirubin (Negative) Urine Urobilinogen (<2.0) mg/dL Ur Leukocyte Esterase (Negative) Urine RBC (0-5) /hpf Urine WBC (0-5) /hpf Ur Squamous Epith Cells (0-4) /hpf Hyaline Casts (0-2) /lpf Urine Mucus (None) /hpf 01/22/23 Range/Units 16:20 WBC (3.8-10.6) k/uL RBC (4.30-5.90) m/uL Hgb (13.0-17.5) gm/dL Hct (39.0-53.0) % MCV (80.0-100.0) fL MCH (25.0-35.0) pg MCHC (31.0-37.0) g/dL RDW (11.5-15.5) % Plt Count (150-450) k/uL MPV Neutrophils % % Lymphocytes % % Monocytes % % Eosinophils % % Basophils % % Neutrophils # (1.3-7.7) k/uL Lymphocytes # (1.0-4.8) k/uL Monocytes # (0-1.0) k/uL Eosinophils # (0-0.7) k/uL Basophils # (0-0.2) k/uL Hypochromasia PT (10.0-12.5) sec INR (<1.2) APTT (22.0-30.0) sec Sodium (137-145) mmol/L Potassium (3.5-5.1) mmol/L Chloride (98-107) mmol/L Carbon Dioxide (22-30) mmol/L Anion Gap mmol/L BUN (9-20) mg/dL Creatinine (0.66-1.25) mg/dL Est GFR (CKD-EPI)AfAm (>60 ml/min/1.73 sqM) Est GFR (CKD-EPI)NonAf (>60 ml/min/1.73 sqM) Glucose (74-99) mg/dL Calcium (8.4-10.2) mg/dL Total Bilirubin (0.2-1.3) mg/dL AST (17-59) U/L ALT (4-49) U/L Alkaline Phosphatase (38-126) U/L Total Protein (6.3-8.2) g/dL Albumin (3.5-5.0) g/dL Amylase (30-110) U/L Lipase (23-300) U/L Urine Color Yellow Urine Appearance Clear (Clear) Urine pH 6.0 (5.0-8.0) Ur Specific [place] 1.021 (1.001-1.035) Urine Protein 1+ H (Negative) Urine Glucose (UA) Negative (Negative) Urine Ketones Negative (Negative) Urine Blood Negative (Negative) Urine Nitrite Negative (Negative) Urine Bilirubin Negative (Negative) Urine Urobilinogen <2.0 (<2.0) mg/dL Ur Leukocyte Esterase Negative (Negative) Urine RBC 1 (0-5) /hpf Urine WBC 1 (0-5) /hpf Ur Squamous Epith Cells <1 (0-4) /hpf Hyaline Casts 4 H (0-2) /lpf Urine Mucus Rare H (None) /hpf Disposition <Kody Crump - Last Filed: 01/22/23 15:05> Is patient prescribed a controlled substance at d/c from ED?: No <Yonas Mckeon - Last Filed: 01/22/23 18:02> Clinical Impression: Postoperative seroma, Abdominal pain Disposition: HOME SELF-CARE Condition: Good Instructions (If sedation given, give patient instructions): Abdominal Pain (ED) Referrals: Cornelius Delarosa MD [STAFF PHYSICIAN] - 1-2 days
[2023-01-22 15:38] LABS: Basophils % (A) 0 %; Eosinophils # (A) 0.5 k/uL (0-0.7); Eosinophils % (A) 5 %; HCT 42.6 % (39.0-53.0); HGB 13.8 gm/dL (13.0-17.5); Hypochromasia Slight; Lymphocytes # (A) 0.9 k/uL (1.0-4.8); Lymphocytes % (A) 10 %; MCH 30.2 pg (25.0-35.0); MCHC 32.5 g/dL (31.0-37.0); MCV 92.9 fL (80.0-100.0); Mean Platelet Volume 7.1; Monocytes # (A) 0.7 k/uL (0-1.0); Monocytes % (A) 8 %; Neutrophils # (A) 6.6 k/uL (1.3-7.7); Neutrophils % (A) 74 %; Platelet Count 190 k/uL (150-450); RBC 4.59 m/uL (4.30-5.90); RDW 13.9 % (11.5-15.5)
[2023-01-22 15:48] LABS: Partial Thromboplastin Time 26.9 sec (22.0-30.0); Prothrombin Time 11.3 sec (10.0-12.5)
[2023-01-22 16:28] LABS: Appearance,Urine Clear (Clear); Bilirubin,Urine Negative (Negative); Blood,Urine Negative (Negative); Color,Urine Yellow; Glucose,Urine (UA) Negative (Negative); Hyaline Casts,Urine 4 /lpf (0-2); Ketones,Urine Negative (Negative); Leukocyte Esterase,Urine Negative (Negative); Mucus,Urine Rare /hpf; Nitrite,Urine Negative (Negative); Protein,Urine 1+ (Negative); RBC,Urine 1 /hpf (0-5); Specific Gravity,Urine 1.021 (1.001-1.035); Squamous Epithelial Cell,Urine <1 /hpf (0-4); Urobilinogen,Urine <2.0 mg/dL (<2.0); WBC,Urine 1 /hpf (0-5)
--- NOTE | 2023-01-22 17:04 | CT ---
EXAMINATION TYPE: CT abdomen pelvis wo con DATE OF EXAM: 01/22/2023 COMPARISON: None INDICATION: pain and discharge at incision site DLP: 2196.2 mGycm, Automated exposure control for dose reduction was used. CONTRAST: 0 mL of Isovue 300. Study performed without Oral Contrast TECHNIQUE: Axial images were obtained from above the diaphragm to the pubic rami in the axial plane a t 5 mm thick sections. Reconstructed images are reviewed on the computer in the coronal plane. FINDINGS: Limited CT sections are obtained the lung bases. Small nodule may be along the pleural margin anteri or lateral right lung measuring 1.1 cm. Series 201 image 5. Some mild increased lung markings at the lung bases bilaterally. Correlate for atelectasis. Couple of small nodules may be in the posterior la teral left lung base. Series [address] ABDOMEN: Liver: Normal Spleen: Normal Pancreas: Pancreas is atrophic Adrenal glands: The adrenal glands are normal. Gallbladder: Not identified. A common bile duct stone or cystic duct calcification may be present, se kelby 201 image 32. This measures 0.5 cm. Postsurgical changes are within the gallbladder bed. Kidneys: No masses are evident. No hydronephrosis is present. No cysts are present. No renal stone s are evident. Aorta: Vascular calcification is within the aorta. Inferior vena cava: Normal. CT PELVIS: Loops of bowel within the abdomen and pelvis are normal. This study is without oral contrast limi ting bowel evaluation. Appendix: Normal as visualized. Urinary bladder: Normal. Genitourinary structures: Prostate is prominent. Osseous structures: No suspicious lytic or sclerotic lesions. Sacroiliac joint vacuum phenomenon is p resent. Pedicle screws and fixation rods are present. Facet hypertrophy is present. IMPRESSION: 1. Calcification in the expected region of the common bile duct or possibly cystic duct remanent ruby suring 0.5 cm. 2. Bibasilar infiltrates. Correlate for atelectasis. Couple small nodularities may be present bilater ally. Follow-up can be performed.
[2023-01-22 17:18] LABS: AST 52 U/L (17-59); African American GFR (CKD) 59 (>60 ml/min/1.73 sqM); Albumin 3.6 g/dL (3.5-5.0); Alkaline Phosphatase 114 U/L (38-126); Amylase 51 U/L (30-110); Anion Gap 11 mmol/L; Blood Urea Nitrogen 23 mg/dL (9-20); Calcium 8.7 mg/dL (8.4-10.2); Carbon Dioxide 26 mmol/L (22-30); Chloride 97 mmol/L (98-107); Glucose 99 mg/dL (74-99); Non-African American GFR(CKD) 51 (>60 ml/min/1.73 sqM); Potassium 4.7 mmol/L (3.5-5.1); Sodium 134 mmol/L (137-145); Total Protein 7.2 g/dL (6.3-8.2)
[2023-01-22 17:19] LABS: ALT 45 U/L (4-49); Lipase 29 U/L (23-300)
[2023-01-22 18:45] VITALS: BP 122/78; PULSE 89; TEMP 98.1
== END 2023-01-22 18:22 | disposition home or self-care (01) ==
LOC: EC 13:24
DX: S30.1XXA Contusion of abdominal wall, initial encounter (principal); L76.34 Postprocedural seroma of skin and subcutaneous tissue following other procedure; E11.9 Type 2 diabetes mellitus without complications; I10 Essential (primary) hypertension; Z79.4 Long term (current) use of insulin; Z87.891 Personal history of nicotine dependence; X58.XXXA Exposure to other specified factors, initial encounter
CPT/HCPCS: 36415; 74176; 80053; 81001; 82150; 83690; 85025; 85610; 85730; 99283

== ENCOUNTER 2023-02-08 12:45 | Inpatient (IN) | payer MEDICARE ==
--- NOTE | 2023-02-08 13:37 | ED ---
General Adult HPI - General Chief complaint: Shortness of Breath Stated complaint: SOB Time Seen by Provider: 02/08/23 13:01 Source: patient, RN notes reviewed, old records reviewed Mode of arrival: ambulatory Limitations: no limitations - History of Present Illness Initial comments: 72-year-old male history of CHF presenting with several day history of worsening dyspnea. No cough. Patient reports orthopnea. He does report bilateral lower extremity swelling as well. No fever. No central chest pain. - Related Data Home Medications Medication Instructions Recorded Confirmed allopurinoL [Zyloprim] 100 mg PO DAILY 06/24/13 01/16/23 Atorvastatin [Lipitor] 80 mg PO DAILY 05/05/15 01/16/23 Baclofen [Lioresal] 10 mg PO TID 05/05/15 01/16/23 Diazepam [Valium] 10 mg PO BID PRN 05/05/15 01/16/23 Losartan Potassium [Cozaar] 100 mg PO DAILY 05/05/15 01/16/23 rOPINIRole HCL [Requip] 3 mg PO BID 05/05/15 01/16/23 Albuterol Inhaler [Ventolin Hfa 1 - 2 puff INHALATION RT-Q6H PRN 01/14/23 01/16/23 Inhaler] Clopidogrel [Plavix] 75 mg PO DAILY 01/14/23 01/16/23 Furosemide [Lasix] 40 mg PO DAILY 01/14/23 01/16/23 INSULIN LISPRO (For Pump) [humaLOG 0.01 units SQ-PUMP CONTINUOUS 01/14/23 01/16/23 (For Pump)] Insulin Lispro [humaLOG Kwikpen] 1 - 25 unit SQ TID-W/MEALS PRN 01/14/23 01/16/23 LORazepam [Ativan] 1 mg PO BID PRN 01/14/23 01/16/23 Magnesium Oxide [Salomon] 500 mg PO BID 01/14/23 01/16/23 Mupirocin Calcium 2% Cream 1 applic TOPICAL BID PRN 01/14/23 01/16/23 [Bactroban 2% Cream] Pentoxifylline [TRENtal] 400 mg PO AC-BID 01/14/23 01/16/23 Ranolazine [Ranexa] 500 mg PO BID 01/14/23 01/16/23 Spironolactone [Aldactone] 25 mg PO DAILY 01/14/23 01/16/23 Tamsulosin [Flomax] 0.4 mg PO BID 01/14/23 01/16/23 Triamcinolone 0.1% Lotion [Kenalog 1 applic TOPICAL BID PRN 01/14/23 01/16/23 0.1% Lotion] Previous Rx's Medication Instructions Recorded Acetaminophen Tab [Tylenol Tab] 650 mg PO Q4H PRN #30 tablet 01/18/23 Metoprolol Succinate (ER) [Toprol 25 mg PO DAILY #30 tab 01/18/23 XL] Sulfamethox-Tmp 800-160Mg [Bactrim 1 tab PO Q12HR #0 01/18/23 DS 800-160 mg] oxyCODONE HCL [OxyIR] 5 mg PO Q6H PRN 3 Days #12 tab 01/18/23 Allergies Allergy/AdvReac Type Severity Reaction Status Date / Time No Known Allergies Allergy Verified 01/21/23 16:22 Review of Systems ROS Statement: Those systems with pertinent positive or pertinent negative responses have been documented in the HPI. ROS Other: All systems not noted in ROS Statement are negative. Past Medical History Past Medical History: Diabetes Mellitus, Hypertension Additional Past Medical History / Comment(s): vertigo, insulin pump Last Myocardial Infarction Date:: 1989 History of Any Multi-Drug Resistant Organisms: None Reported Past Surgical History: Appendectomy, Back Surgery, Cholecystectomy, Coronary Bypass/CABG, Joint Replacement, Orthopedic Surgery, Tonsillectomy Additional Past Surgical History / Comment(s): HAS HAD ATTEMPTED SEVERAL COLONOSCOPIES IN THE PAST MONTHS, HOWEVER, BOWEL WAS NOT TOTALLY CLEAN. 06-03-15 total rt shoulder Past Anesthesia/Blood Transfusion Reactions: No Reported Reaction Past Psychological History: No Psychological Hx Reported Smoking Status: Former smoker Past Alcohol Use History: Occasional Past Drug Use History: None Reported - Past Family History Mother Family Medical History: Cancer Additional Family Medical History / Comment(s): breast bowel liver ca Father Family Medical History: Myocardial Infarction ([place]) Additional Family Medical History / Comment(s): first mi at age 32 and w/3rd mi at age 44 General Exam Limitations: no limitations General appearance: alert, in no apparent distress Head exam: Present: atraumatic, normocephalic Eye exam: Present: normal appearance, PERRL ENT exam: Present: normal exam Neck exam: Present: normal inspection Respiratory exam: Present: rales, decreased breath sounds. Absent: respiratory distress Cardiovascular Exam: Present: regular rate, normal rhythm GI/Abdominal exam: Present: soft, distended. Absent: tenderness, guarding Extremities exam: Present: pedal edema Neurological exam: Present: alert, oriented X3, CN II-XII intact. Absent: motor sensory deficit Psychiatric exam: Present: normal affect, normal mood Skin exam: Present: warm, dry Course Vital Signs 02/08/23 13:27 Temperature 98.4 F Pulse Rate 67 Respiratory 18 Rate Blood Pressure 86/55 O2 Sat by Pulse 95 Oximetry Medical Decision Making - Medical Decision Making Was pt. sent in by a medical professional or institution (CELESTINO Ayala, SYSTEMS DEVELOPER, urgent care, hospital, or assisted...) When possible be specific @ -No Did you speak to anyone other than the patient for history (EMS, parent, family, police, friend...)? What history was obtained from this source @ -No Did you review nursing and triage notes (agree or disagree)? Why? @ -I reviewed and agree with nursing and triage notes Were old charts reviewed (outside hosp., previous admission, EMS record, old EKG, old radiological studies, urgent care reports/EKG's, assisted records)? Report findings @ -No old charts were reviewed Differential Diagnosis (chest pain, altered mental status, abdominal pain women, abdominal pain men, vaginal bleeding, weakness, fever, dyspnea, syncope, headache, dizziness, GI bleed, back pain, seizure, CVA, palpatations, mental health, musculoskeletal)? @ -not applicable EKG interpreted by me (3pts min.). @ -As above X-rays interpreted by me (1pt min.). @ Chest x-ray shows cardiomegaly no focal pneumonia, no pneumothorax CT interpreted by me (1pt min.). @ -None done U/S interpreted by me (1pt. min.). @ -None done What testing was considered but not performed or refused? (CT, X-rays, U/S, labs)? Why? @ -None What meds were considered but not given or refused? Why? @ -None Did you discuss the management of the patient with other professionals (anne spencer i.e. Dr., PA, SYSTEMS DEVELOPER, lab, RT, psych nurse, director social service, platform power technician, teacher, general service officer, rn case manager hospice)? Give summary @ -No Was smoking cessation discussed for >3mins.? @ -No Was critical care preformed (if so, how long)? @ -No Were there social determinants of health that impacted care today? How? (Homelessness, low income, unemployed, alcoholism, drug addiction, transportation, low edu. Level, literacy, decrease access to med. care, [facility], rehab)? @ -No Was there de-escalation of care discussed even if they declined (Discuss DNR or withdrawal of care, Hospice)? DNR status @ -No What co-morbidities impacted this encounter? (DM, HTN, Smoking, COPD, CAD, Cancer, CVA, ARF, Chemo, Hep., AIDS, mental health diagnosis, sleep apnea, morbid obesity)? @ CHF, diabetes Was patient admitted / discharged? Hospital course, mention meds given and route, prescriptions, significant lab abnormalities, going to OR and other pertinent info. @ -72-year-old male presenting for evaluation of increased dyspnea, orthopnea, history of CHF. Patient's BNP is elevated and troponin is also elevated at 0.1. Patient does have chronic troponin elevation however this is slightly higher than recent. Chest x-ray shows cardiomegaly. Patient has symptoms of some edema and orthopnea. Will be treated for CHF. His troponin level will be trended. Additionally he has a worsening creatinine. Patient admitted to Dr. Sahni. Undiagnosed new problem with uncertain prognosis? @ -No Drug Therapy requiring intensive monitoring for toxicity (Heparin, Nitro, Insulin, Cardizem)? @ -No Were any procedures done? @ -No Diagnosis/symptom? @ -CHF, trop elevated Acute, or Chronic, or Acute on Chronic? @ -acute Uncomplicated (without systemic symptoms) or Complicated (systemic symptoms)? @ -complicated Side effects of treatment? @ -No Exacerbation, Progression, or Severe Exacerbation? @ -No Poses a threat to life or bodily function? How? (Chest pain, [place], [place], pneumonia, PE, COPD, DKA, ARF, appy, cholecystitis, CVA, Diverticulitis, Homicidal, Suicidal, threat to staff... and all critical care pts) @ -yes, chf - Lab Data Result diagrams: 02/08/23 13:45 02/08/23 13:45 Lab Results 02/08/23 02/08/23 02/08/23 Range/Units 13:45 13:45 13:45 WBC 8.3 (3.8-10.6) k/uL RBC 4.65 (4.30-5.90) m/uL Hgb 13.6 (13.0-17.5) gm/dL Hct 43.0 (39.0-53.0) % MCV 92.4 (80.0-100.0) fL MCH 29.3 (25.0-35.0) pg MCHC 31.7 (31.0-37.0) g/dL RDW 14.7 (11.5-15.5) % Plt Count 167 (150-450) k/uL MPV 7.4 Neutrophils % 79 % Lymphocytes % 8 % Monocytes % 7 % Eosinophils % 1 % Basophils % 0 % Neutrophils # 6.5 (1.3-7.7) k/uL Lymphocytes # 0.7 L (1.0-4.8) k/uL Monocytes # 0.6 (0-1.0) k/uL Eosinophils # 0.1 (0-0.7) k/uL Basophils # 0.0 (0-0.2) k/uL Hypochromasia Slight PT 12.3 (10.0-12.5) sec INR 1.1 (<1.2) APTT 26.7 (22.0-30.0) sec Sodium 132 L (137-145) mmol/L Potassium 5.7 H (3.5-5.1) mmol/L Chloride 97 L (98-107) mmol/L Carbon Dioxide 24 (22-30) mmol/L Anion Gap 11 mmol/L BUN 42 H (9-20) mg/dL Creatinine 1.82 H (0.66-1.25) mg/dL Est GFR (CKD-EPI)AfAm 41 (>60 ml/min/1.73 sqM) Est GFR (CKD-EPI)NonAf 36 (>60 ml/min/1.73 sqM) Glucose 140 H (74-99) mg/dL Plasma Lactic Acid Xander (0.7-2.0) mmol/L Calcium 8.0 L (8.4-10.2) mg/dL Total Bilirubin 0.7 (0.2-1.3) mg/dL AST 106 H (17-59) U/L ALT 113 H (4-49) U/L Alkaline Phosphatase 164 H (38-126) U/L Troponin I (0.000-0.034) ng/mL NT-Pro-B Natriuret Pep 2560 pg/mL Total Protein 6.7 (6.3-8.2) g/dL Albumin 3.5 (3.5-5.0) g/dL Influenza Type A (PCR) (Not Detectd) Influenza Type B (PCR) (Not Detectd) RSV (PCR) (Not Detectd) SARS-CoV-2 (PCR) (Not Detectd) 02/08/23 02/08/23 02/08/23 Range/Units 13:45 13:45 13:45 WBC (3.8-10.6) k/uL RBC (4.30-5.90) m/uL Hgb (13.0-17.5) gm/dL Hct (39.0-53.0) % MCV (80.0-100.0) fL MCH (25.0-35.0) pg MCHC (31.0-37.0) g/dL RDW (11.5-15.5) % Plt Count (150-450) k/uL MPV Neutrophils % % Lymphocytes % % Monocytes % % Eosinophils % % Basophils % % Neutrophils # (1.3-7.7) k/uL Lymphocytes # (1.0-4.8) k/uL Monocytes # (0-1.0) k/uL Eosinophils # (0-0.7) k/uL Basophils # (0-0.2) k/uL Hypochromasia PT (10.0-12.5) sec INR (<1.2) APTT (22.0-30.0) sec Sodium (137-145) mmol/L Potassium (3.5-5.1) mmol/L Chloride (98-107) mmol/L Carbon Dioxide (22-30) mmol/L Anion Gap mmol/L BUN (9-20) mg/dL Creatinine (0.66-1.25) mg/dL Est GFR (CKD-EPI)AfAm (>60 ml/min/1.73 sqM) Est GFR (CKD-EPI)NonAf (>60 ml/min/1.73 sqM) Glucose (74-99) mg/dL Plasma Lactic Acid Xander 1.2 (0.7-2.0) mmol/L Calcium (8.4-10.2) mg/dL Total Bilirubin (0.2-1.3) mg/dL AST (17-59) U/L ALT (4-49) U/L Alkaline Phosphatase (38-126) U/L Troponin I 0.102 H* (0.000-0.034) ng/mL NT-Pro-B Natriuret Pep pg/mL Total Protein (6.3-8.2) g/dL Albumin (3.5-5.0) g/dL Influenza Type A (PCR) Not Detected (Not Detectd) Influenza Type B (PCR) Not Detected (Not Detectd) RSV (PCR) Not Detected (Not Detectd) SARS-CoV-2 (PCR) Not Detected (Not Detectd) Disposition Clinical Impression: Congestive heart failure Disposition: ADMITTED IP TO THIS HOSP Condition: Stable Is patient prescribed a controlled substance at d/c from ED?: No Referrals: Olvin Palmer DO [Primary Care Provider] - 1-2 days Time of Disposition: 16:10
[2023-02-08 14:23] LABS: Basophils % (A) 0 %; Eosinophils # (A) 0.1 k/uL (0-0.7); Eosinophils % (A) 1 %; HGB 13.6 gm/dL (13.0-17.5); Hypochromasia Slight; Lymphocytes # (A) 0.7 k/uL (1.0-4.8); Lymphocytes % (A) 8 %; MCH 29.3 pg (25.0-35.0); MCHC 31.7 g/dL (31.0-37.0); MCV 92.4 fL (80.0-100.0); Mean Platelet Volume 7.4; Monocytes # (A) 0.6 k/uL (0-1.0); Monocytes % (A) 7 %; Neutrophils # (A) 6.5 k/uL (1.3-7.7); Neutrophils % (A) 79 %; Platelet Count 167 k/uL (150-450); RBC 4.65 m/uL (4.30-5.90); RDW 14.7 % (11.5-15.5); WBC 8.3 k/uL (3.8-10.6)
--- NOTE | 2023-02-08 14:27 | XR ---
EXAMINATION TYPE: XR chest 2V DATE OF EXAM: 02/08/2023 COMPARISON: 01/14/2023 INDICATION: Difficulty breathing TECHNIQUE: Frontal and lateral views of the chest are obtained. FINDINGS: The heart size is upper limits of normal. Pacemaker overlies left chest. The pulmonary vasculature is normal. The lungs are clear. Bilateral shoulder prostheses are evident. IMPRESSION: 1. No acute pulmonary process.
[2023-02-08 14:31] LABS: INR 1.1 (<1.2); Partial Thromboplastin Time 26.7 sec (22.0-30.0); Prothrombin Time 12.3 sec (10.0-12.5)
[2023-02-08 14:40] LABS: ALT 113 U/L (4-49); AST 106 U/L (17-59); African American GFR (CKD) 41 (>60 ml/min/1.73 sqM); Albumin 3.5 g/dL (3.5-5.0); Alkaline Phosphatase 164 U/L (38-126); Anion Gap 11 mmol/L; Blood Urea Nitrogen 42 mg/dL (9-20); Carbon Dioxide 24 mmol/L (22-30); Chloride 97 mmol/L (98-107); Glucose 140 mg/dL (74-99); Non-African American GFR(CKD) 36 (>60 ml/min/1.73 sqM); Potassium 5.7 mmol/L (3.5-5.1); Sodium 132 mmol/L (137-145); Total Bilirubin 0.7 mg/dL (0.2-1.3); Total Protein 6.7 g/dL (6.3-8.2)
[2023-02-08 14:49] LABS: NT-Pro-B-Type Natriuretic Pept 2560 pg/mL
[2023-02-08] MEDS ORDERED: FUROSEMIDE 10 MG/ML 4 ML VIAL IV STA (15:46)
[2023-02-08] MEDS ORDERED: ASPIRIN 325 MG TAB PO STA (15:50)
[2023-02-08] MEDS ORDERED: NALOXONE 0.4 MG/ML 1 ML VIAL IV PRN (16:05)
[2023-02-08] MEDS ORDERED: HEPARIN SODIUM 1,000 UN/ML (10ML VL) IV PRN (23:14)
[2023-02-08] MEDS ORDERED: HEPARIN SODIUM 1,000 UN/ML (10ML VL) IV ONE (23:14)
[2023-02-08] MEDS: HEPARIN SOD,PORK IN 0.45% NACL 25,000 UNIT in 0.45% NACL 1 250ML.BAG IV SCH (23:35)
[2023-02-09] MEDS: ACETAMINOPHEN TAB 325 MG TAB PO PRN ×2 (06:25→21:24)
[2023-02-09 07:26] LABS: INR 1.2 (<1.2); Prothrombin Time 12.6 sec (10.0-12.5)
[2023-02-09] MEDS ORDERED: SPIRONOLACTONE 25 MG TAB PO SCH (09:00)
[2023-02-09] MEDS ORDERED: LOSARTAN 50 MG TAB PO SCH (09:00)
[2023-02-09] MEDS: ATORVASTATIN 80 MG TAB PO SCH (09:45)
[2023-02-09] MEDS: MAGNESIUM OXIDE 400 MG TAB PO SCH ×2 (09:45→21:25)
[2023-02-09] MEDS: RANOLAZINE 500 MG TAB.ER.12H PO SCH ×2 (09:45→21:25)
[2023-02-09] MEDS: CLOPIDOGREL 75 MG TAB PO SCH (09:46)
[2023-02-09] MEDS: carvediloL 3.125 MG TAB PO SCH ×2 (09:46→16:54)
[2023-02-09] MEDS ORDERED: ONDANSETRON 4 MG/2 ML VIAL IVP PRN (10:41)
[2023-02-09] MEDS ORDERED: BACLOFEN 10 MG TAB PO PRN (12:04)
[2023-02-09] MEDS ORDERED: ALBUTEROL NEBULIZED 2.5 MG/3 ML INHALATION PRN (12:04)
[2023-02-09] MEDS ORDERED: TRIAMCINOLONE 0.1% CREAM 80 GM TUBE TOPICAL PRN (12:04)
[2023-02-09 12:26] LABS: Glucose,Whole Blood 95 mg/dL (70-110)
[2023-02-09] MEDS: INSULIN LISPRO (For Pump) 100 UNIT/ML VIAL SQ-PUMP SCH (12:26)
[2023-02-09] MEDS: TAMSULOSIN 0.4 MG CAP.ER.24H PO SCH ×2 (12:33→21:25)
[2023-02-09] MEDS ORDERED: SODIUM ZIRCONIUM CYCLOSILICATE 10 GM PACKET PO ONE (12:45)
--- NOTE | 2023-02-09 13:08 | P.CRDCN ---
History of Present Illness Consult date: 02/09/23 History of present illness: HISTORY OF PRESENT ILLNESS: This is a 72-year-old male follows with a supply chain procurement manager out of [facility]. He has a past medical history of coronary artery disease with previous CABG and multiple stents details are on known, cardiomyopathy status post AICD, hypertension, hyperlipidemia, diabetes, back surgery with chronic pain, morbid obesity, and former nicotine dependence. We have been called to the preop area for preop cardiac clearance regarding elevated troponin. Patient was recently in the hospital from . He was seen by cardiology at that time for acute heart failure but patient signed out AMA. Echocardiogram obtained at that time revealed EF of 30-35%, moderate pulmonary hypertension with RVSP 45 mmHg. Severe biatrial dilatation. Dilated IVC with no respiratory collapse. States that he left the hospital because he was very anxious but he followed up with his PCP and saw the results of his test and told the patient that he had gallbladder problem. Patient return to the emergency center the following day and was admitted to the hospital seen by cardiology for chronic systolic heart failure. We have been asked to evaluate the patient for heart failure and elevated troponin. Patient is seen today in the emergency center waiting for a bed on the cardiac stepdown unit. Patient states he is not sure why he came in the hospital but his daughter came over to check on him and thought he needed to come in. He states he has had a cough and no energy. He denies having any chest pain, no dizziness, no syncopal episodes for the most part but occasionally he has experienced this in the past with standing. Patient does complain of dyspnea on exertion that has been progressively worsening over the past 6-8 months. Patient states that he does not follow a low-salt diet. Blood pressure currently 107/61 heart rate 78. Patient has been started on IV heparin, Lasix 40 mg IV 1. Noted the patient was recently on Bactrim. EKG sinus rhythm with normal ST segment, OH mildly prolonged, Q waves in the anterior leads Chest x-ray: No acute process CBC is unremarkable. INR 1.1. Sodium 132, potassium 5.7, chloride 97, BUN 42 creatinine 1.82. Troponin 0.102, 0.163, 0.203. Total bilirubin 0.7, AST 106, ALT 113, alkaline phosphatase 164. ProBNP 2560. Influenza A, influenza B, RSV, Covid 19 oh to detected. Current home cardiac medications include atorvastatin 80 mg daily, Plavix 75 mg daily, Lasix 40 mg daily, losartan 100 mg daily, Toprol-XL 25 mg daily,Aldactone 25 mg daily, Plavix 75 mg daily, Ranexa 500 mg twice a day, Lasix 40 mg daily, losartan 100 mg daily, Lipitor 80 mg daily Cardiac catheterization performed following a positive stress test and AICD firing at [facility] on 02/03/[address] Joaquin Stock revealed triple- vessel coronary artery disease, anatomy grossly unchanged from 2018. Patent BAKER/LAD and SVG/OM. Patent stents in the [place] RCA and SVG/OM. IFR of the RCA 0.96, nonsignificant stenosis. Severe LV dysfunction of 30%. Patient was planned to continue on ARB, beta josiane and Aldactone and consider SGLT2 inhibitor. REVIEW OF SYSTEMS: At the time of my exam: CONSTITUTIONAL: Denies fever or chills. Reports generalized fatigue. HEENT: Denies blurred vision, vision changes, or eye pain. Denies hemoptysis CARDIOVASCULAR: Denies chest pain. Denies orthopnea. Denies PND. Denies palpitations. Reports chronic dyspnea on exertion. RESPIRATORY: Denies shortness of breath. Reports dyspnea on exertion. GASTROINTESTINAL: Denies abdominal pain. Denies nausea or vomiting. HEMATOLOGIC: Denies bleeding disorders. GENITOURINARY: Denies any blood in urine. SKIN: Denies pruitis. Denies rash. PHYSICAL EXAM: VITAL SIGNS: Reviewed. GENERAL: Well-developed in no acute distress. HEENT: Head is normocephalic. Pupils are equal, round. Sclerae anicteric. Mucous membranes of the mouth are moist. Neck supple. No JVD or thyromegaly LUNGS: Respirations even and unlabored. Lungs mild crackles bilaterally. HEART: Regular rate and rhythm. S1 and S2 heard. ABDOMEN: Soft. Nondistended. Nontender. EXTREMITIES: No clubbing or cyanosis. Peripheral pulses intact. 2+ bilateral lower extremity edema. NEUROLOGIC: Awake and alert. Oriented x 3. ASSESSMENT: Acute on chronic systolic heart failure Elevated troponin most likely secondary to heart failure Acute kidney injury Coronary artery disease with previous CABG 4 vessels Hypertension Hyperlipidemia Diabetes History of back surgery with chronic pain Morbid obesity Former nicotine dependence History of COPD History of Asbestos History of AICD implantation with previous ICD discharge (about 5 years ago per patient) PLAN: Resume home cardiac medications Discontinue Toprol-XL and start patient on Coreg 3.125 mg twice daily Discontinue losartan and decrease Aldactone to 50 mg daily Plan to start patient on Entresto tomorrow if repeat BMP shows potassium and creatinine are improving. Patient is to obtain name of device company from his daughter. Further recommendations pending patient's course Nurse practitioner note has been reviewed by physician. Signing provider agrees with the documented findings, assessment, and plan of care. Past Medical History Past Medical History: Diabetes Mellitus, Hypertension Additional Past Medical History / Comment(s): vertigo, insulin pump Last Myocardial Infarction Date:: 1989 History of Any Multi-Drug Resistant Organisms: None Reported Past Surgical History: Appendectomy, Back Surgery, Cholecystectomy, Coronary Bypass/CABG, Joint Replacement, Orthopedic Surgery, Tonsillectomy Additional Past Surgical History / Comment(s): HAS HAD ATTEMPTED SEVERAL COLONOSCOPIES IN THE PAST MONTHS, HOWEVER, BOWEL WAS NOT TOTALLY CLEAN. 06-03-15 total rt shoulder Past Anesthesia/Blood Transfusion Reactions: No Reported Reaction Past Psychological History: No Psychological Hx Reported Smoking Status: Former smoker Past Alcohol Use History: Occasional Past Drug Use History: None Reported - Past Family History Mother Family Medical History: Cancer Additional Family Medical History / Comment(s): breast bowel liver ca Father Family Medical History: Myocardial Infarction ([place]) Additional Family Medical History / Comment(s): first mi at age 32 and w/3rd mi at age 44 Medications and Allergies Home Medications Medication Instructions Recorded Confirmed Type allopurinoL [Zyloprim] 100 mg PO DAILY 06/24/13 02/08/23 History Atorvastatin [Lipitor] 80 mg PO DAILY 05/05/15 02/08/23 History Baclofen [Lioresal] 10 mg PO TID 05/05/15 02/08/23 History Diazepam [Valium] 10 mg PO BID PRN 05/05/15 02/08/23 History Losartan Potassium [Cozaar] 100 mg PO DAILY 05/05/15 02/08/23 History rOPINIRole HCL [Requip] 3 mg PO BID 05/05/15 02/08/23 History Albuterol Inhaler [Ventolin Hfa 1 - 2 puff INHALATION RT-Q6H PRN 01/14/23 02/08/23 History Inhaler] Clopidogrel [Plavix] 75 mg PO DAILY 01/14/23 02/08/23 History Furosemide [Lasix] 40 mg PO DAILY 01/14/23 02/08/23 History INSULIN LISPRO (For Pump) [humaLOG 0.01 units SQ-PUMP CONTINUOUS 01/14/2305/29 History (For Pump)] Insulin Lispro [humaLOG Kwikpen] 1 - 25 unit SQ TID-W/MEALS PRN 01/14/23 02/08/23 History LORazepam [Ativan] 1 mg PO BID PRN 01/14/23 02/08/23 History Magnesium Oxide [Salomon] 500 mg PO BID 01/14/23 02/08/23 History Mupirocin Calcium 2% Cream 1 applic TOPICAL BID PRN 01/14/23 02/08/23 History [Bactroban 2% Cream] Pentoxifylline [TRENtal] 400 mg PO AC-BID 01/14/23 02/08/23 History Ranolazine [Ranexa] 500 mg PO BID 01/14/23 02/08/23 History Tamsulosin [Flomax] 0.4 mg PO BID 01/14/23 02/08/23 History Triamcinolone 0.1% Lotion [Kenalog 1 applic TOPICAL BID PRN 01/14/23 02/08/23 History 0.1% Lotion] Acetaminophen Tab [Tylenol Tab] 650 mg PO Q4H PRN #30 tablet 01/18/23 02/08/23 Rx Metoprolol Succinate (ER) [Toprol 25 mg PO DAILY #30 tab 01/18/23 02/08/23 Rx XL] oxyCODONE HCL [OxyIR] 5 mg PO Q6H PRN 3 Days #12 tab 01/18/23 02/08/23 Rx Spironolactone [Aldactone] 100 mg PO DAILY 02/08/23 02/08/23 History Sulfamethox-Tmp 800-160Mg [Bactrim 1 tab PO BID 02/08/23 02/08/23 History DS 800-160 mg] Allergies Allergy/AdvReac Type Severity Reaction Status Date / Time No Known Allergies Allergy Verified 02/08/23 16:40 Physical Exam Vitals: Vital Signs Temp Pulse Resp BP Pulse Ox 02/09/23 06:09 98.4 F 77 16 107/61 98 02/09/23 03:34 97.2 F L 72 16 86/62 98 02/09/23 00:35 18 02/08/23 23:45 97.3 F L 68 18 105/78 99 02/08/23 22:18 70 96 02/08/23 20:00 78 20 99/52 96 02/08/23 19:00 76 20 90/73 98 02/08/23 18:38 74 18 90/73 97 02/08/23 18:00 72 18 115/79 99 02/08/23 17:00 75 18 105/66 99 02/08/23 16:07 73 99 02/08/23 16:00 71 97 02/08/23 15:58 67 95 02/08/23 13:27 98.4 F 67 18 86/55 95 Results 02/08/23 13:45 02/08/23 13:45 Cardiac Enzymes 02/08/23 02/08/23 02/08/23 Range/Units 13:45 13:45 18:00 AST 106 H (17-59) U/L Troponin I 0.102 H* 0.163 H* (0.000-0.034) ng/mL 02/08/23 Range/Units 21:15 AST (17-59) U/L Troponin I 0.203 H* (0.000-0.034) ng/mL Coagulation 02/08/23 02/09/23 02/09/23 Range/Units 13:45 06:47 06:47 PT 12.3 12.6 H (10.0-12.5) sec APTT 26.7 29.4 (22.0-30.0) sec CBC 02/08/23 Range/Units 13:45 WBC 8.3 (3.8-10.6) k/uL RBC 4.65 (4.30-5.90) m/uL Hgb 13.6 (13.0-17.5) gm/dL Hct 43.0 (39.0-53.0) % Plt Count 167 (150-450) k/uL Comprehensive Metabolic Panel 02/08/23 Range/Units 13:45 Sodium 132 L (137-145) mmol/L Potassium 5.7 H (3.5-5.1) mmol/L Chloride 97 L (98-107) mmol/L Carbon Dioxide 24 (22-30) mmol/L BUN 42 H (9-20) mg/dL Creatinine 1.82 H (0.66-1.25) mg/dL Glucose 140 H (74-99) mg/dL Calcium 8.0 L (8.4-10.2) mg/dL AST 106 H (17-59) U/L ALT 113 H (4-49) U/L Alkaline Phosphatase 164 H (38-126) U/L Total Protein 6.7 (6.3-8.2) g/dL Albumin 3.5 (3.5-5.0) g/dL Current Medications Generic Name Dose Route Start Last Admin Trade Name Freq PRN Reason Stop Dose Admin Acetaminophen 650 mg 02/08/23 16:05 02/09/23 06:25 Acetaminophen Tab 325 Mg Tab PO 650 mg Q6HR PRN Administration Mild Pain or Fever > 100.5 Heparin Sodium (Porcine) 0 unit 02/08/23 23:14 Heparin Sodium 1,000 Un/Ml (10ml Vl) IV PER PROTOCOL PRN Low PTT Protocol Heparin Sodium/Sodium Chloride 250 mls @ 9.999 mls/hr 02/08/23 23:15 02/08/23 23:35 25,000 unit/ Sodium Chloride IV 6.68 units/kg/hr .Q24H TRISH 9.999 mls/hr Administration Protocol 6.68 UNITS/KG/HR Naloxone HCl 0.2 mg 02/08/23 16:05 Naloxone 0.4 Mg/Ml 1 Ml Vial IV Q2M PRN Opioid Reversal 02/08/23 13:45 02/08/23 13:45
[2023-02-09] MEDS: PENTOXIFYLLINE 400 MG TABLET.ER PO SCH ×2 (14:53→16:47)
--- NOTE | 2023-02-09 15:07 | P.HPIM ---
History of Present Illness H&P Date: 02/09/23 This is a 72 year old male with medical history of coronary artery disease post quadruple CABG, AICD, hypertension, diabetes type 2 insulin-dependent insulin pump, history of back surgery and chronic pain, restless leg syndrome and prior history of smoking. Patient has known cardiomyopathy with EF 30% redemonstrated on echocardiogram completed here on 01/15/2023 which reveals an EF of 30-35% severely reduced global LV systolic function and dilated RV with signs of moderate pulmonary hypertension, PPM wire noticed and RV with severe biatrial dilation and dilated IVC with no respiratory collapse. Patient was recently admitted for laproscopic cholecystectomy and was discharged subsequently. Since discharge he states he has had progressive shortness of breath. He also reports lower extremity edema. States no fever or chills. No chest pain. No abdominal pain, no nausea, vomiting or diarrhea. He has been on bactrim recently likely for the lower extremity ulcerations. He additionally does not follow low sodium diet and uses additional table salt with meals. He states he is not producing much urine when he is taking his lasix. He is maintained on lasix 40 mg BID. States he was recently in to see his doctor and his water pill was changed. He is unsure what was changed. Patient was admitted for dyspnea and CHF found to have troponin elevation 0.102, 0.163, 0.203. BUN 42, creatinine 1.82, sodium 132, potassium 5.7. Elevated LFTs. proBNP 2560. Chest xray negative for acute findings. Viral panel negative for influenza A/B, RSV and Covid. He has been started on IV heparin and given a dose of IV lasix, cardiology consulted. REVIEW OF SYSTEMS: CONSTITUTIONAL: No fever, no malaise, no fatigue. HEENT: No recent visual problems or hearing problems. Denied any sore throat. CARDIOVASCULAR: No chest pain, orthopnea, PND, no palpitations, no syncope. PULMONARY: No shortness of breath, no cough, no hemoptysis. GASTROINTESTINAL: No diarrhea, no nausea, no vomiting, no abdominal pain. NEUROLOGICAL: No headaches, no weakness, no numbness. HEMATOLOGICAL: Denies any bleeding or petechiae. GENITOURINARY: Denies any burning micturition, frequency, or urgency. MUSCULOSKELETAL/RHEUMATOLOGICAL: Denies any joint pain, swelling, or any muscle pain. ENDOCRINE: Denies any polyuria or polydipsia. The rest of the 14-point review of systems is negative. PHYSICAL EXAMINATION: GENERAL: The patient is alert and oriented x3, not in any acute distress. Well developed, well nourished. HEENT: Pupils are round and equally reacting to light. EOMI. No scleral icterus. No conjunctival pallor. Normocephalic, atraumatic. No pharyngeal erythema. No thyromegaly. CARDIOVASCULAR: S1 and S2 present. No murmurs, rubs, or gallops. PULMONARY: Chest is clear to auscultation, no wheezing or crackles. ABDOMEN: Soft, nontender, nondistended, normoactive bowel sounds. No palpable organomegaly. MUSCULOSKELETAL: No joint swelling or deformity. EXTREMITIES: No cyanosis, clubbing, or pedal edema. NEUROLOGICAL: Gross neurological examination did not reveal any focal deficits. SKIN: No rashes. Assessment Acute on Chronic systolic heart failure with EF 30%. Troponin elevation secondary to above Coronary artery disease history of quadruple CABG Recent laproscopic cholecystectomy Diabetes type 2 insulin-dependent on insulin pump which will be continued including accuchecks ACHS and sliding scale insulin ordered. Hx of COPD with no acute exacerbation Hx of AICD and cardiomyopathy Hypertension Chronic pain History of gout Restless leg syndrome Morbid obesity BMI 45.2 Former smoker GI prophylaxis DVT prophylaxis Full Code Plan Resume appropriate home medications and cardiology on consultation has recommended to add Entresto and change toprol to carvedilol. Losartan discontinu ed Patient to continue on accuchecks ACHS and insulin pump Continue oral pain medication and muscle relaxer. Cardiology consultation Repeat labs in AM The impression and plan of care has been dictated by Palmira Salomon, Nurse Practitioner as directed. Dr. Cem MD I have performed a history and physical examination and medical decision making of this patient, discussed the same with the dictator, and agree with the dictators assessment and plan as written, documented as a scribe. Based on total visit time, I have performed more than 50% of this visit. Past Medical History Past Medical History: Diabetes Mellitus, Hypertension Additional Past Medical History / Comment(s): vertigo, insulin pump Last Myocardial Infarction Date:: 1989 History of Any Multi-Drug Resistant Organisms: None Reported Past Surgical History: Appendectomy, Back Surgery, Cholecystectomy, Coronary Bypass/CABG, Joint Replacement, Orthopedic Surgery, Tonsillectomy Additional Past Surgical History / Comment(s): HAS HAD ATTEMPTED SEVERAL COLONOSCOPIES IN THE PAST MONTHS, HOWEVER, BOWEL WAS NOT TOTALLY CLEAN. 06-03-15 total rt shoulder Past Anesthesia/Blood Transfusion Reactions: No Reported Reaction Past Psychological History: No Psychological Hx Reported Smoking Status: Former smoker Past Alcohol Use History: Occasional Past Drug Use History: None Reported - Past Family History Mother Family Medical History: Cancer Additional Family Medical History / Comment(s): breast bowel liver ca Father Family Medical History: Myocardial Infarction (MS) Additional Family Medical History / Comment(s): first mi at age 32 and w/3rd mi at age 44 Medications and Allergies Home Medications Medication Instructions Recorded Confirmed Type allopurinoL [Zyloprim] 100 mg PO DAILY 06/24/13 02/08/23 History Atorvastatin [Lipitor] 80 mg PO DAILY 05/05/15 02/08/23 History Baclofen [Lioresal] 10 mg PO TID 05/05/15 02/08/23 History Diazepam [Valium] 10 mg PO BID PRN 05/05/15 02/08/23 History Losartan Potassium [Cozaar] 100 mg PO DAILY 05/05/15 02/08/23 History rOPINIRole HCL [Requip] 3 mg PO BID 05/05/15 02/08/23 History Albuterol Inhaler [Ventolin Hfa 1 - 2 puff INHALATION RT-Q6H PRN 01/14/23 02/08/23 History Inhaler] Clopidogrel [Plavix] 75 mg PO DAILY 01/14/23 02/08/23 History Furosemide [Lasix] 40 mg PO DAILY 01/14/23 02/08/23 History INSULIN LISPRO (For Pump) [humaLOG 0.01 units SQ-PUMP CONTINUOUS 01/14/23 02/08/23 History (For Pump)] Insulin Lispro [humaLOG Kwikpen] 1 - 25 unit SQ TID-W/MEALS PRN 01/14/23 02/08/23 History LORazepam [Ativan] 1 mg PO BID PRN 01/14/23 02/08/23 History Magnesium Oxide [Salomon] 500 mg PO BID 01/14/23 02/08/23 History Mupirocin Calcium 2% Cream 1 applic TOPICAL BID PRN 01/14/23 02/08/23 History [Bactroban 2% Cream] Pentoxifylline [TRENtal] 400 mg PO AC-BID 01/14/23 02/08/23 History Ranolazine [Ranexa] 500 mg PO BID 01/14/23 02/08/23 History Tamsulosin [Flomax] 0.4 mg PO BID 01/14/23 02/08/23 History Triamcinolone 0.1% Lotion [Kenalog 1 applic TOPICAL BID PRN 01/14/23 02/08/23 History 0.1% Lotion] Acetaminophen Tab [Tylenol Tab] 650 mg PO Q4H PRN #30 tablet 01/18/23 02/08/23 Rx Metoprolol Succinate (ER) [Toprol 25 mg PO DAILY #30 tab 01/18/23 02/08/23 Rx XL] oxyCODONE HCL [OxyIR] 5 mg PO Q6H PRN 3 Days #12 tab 01/18/23 02/08/23 Rx Spironolactone [Aldactone] 100 mg PO DAILY 02/08/23 02/08/23 History Sulfamethox-Tmp 800-160Mg [Bactrim 1 tab PO BID 02/08/23 02/08/23 History DS 800-160 mg] Allergies Allergy/AdvReac Type Severity Reaction Status Date / Time No Known Allergies Allergy Verified 02/08/23 16:40 Physical Exam Vitals: Vital Signs Temp Pulse Resp BP Pulse Ox 02/09/23 06:09 98.4 F 77 16 107/61 98 02/09/23 03:34 97.2 F L 72 16 86/62 98 02/09/23 00:35 18 02/08/23 23:45 97.3 F L 68 18 105/78 99 02/08/23 22:18 70 96 02/08/23 20:00 78 20 99/52 96 02/08/23 19:00 76 20 90/73 98 02/08/23 18:38 74 18 90/73 97 02/08/23 18:00 72 18 115/79 99 02/08/23 17:00 75 18 105/66 99 02/08/23 16:07 73 99 02/08/23 16:00 71 97 02/08/23 15:58 67 95 02/08/23 13:27 98.4 F 67 18 86/55 95 Results CBC & Chem 7: 02/08/23 13:45 02/08/23 13:45 Labs: Abnormal Lab Results - Last 24 Hours (Table) 02/08/23 02/08/23 02/08/23 Range/Units 13:45 13:45 13:45 Lymphocytes # 0.7 L (1.0-4.8) k/uL PT (10.0-12.5) sec INR (<1.2) Sodium 132 L (137-145) mmol/L Potassium 5.7 H (3.5-5.1) mmol/L Chloride 97 L (98-107) mmol/L BUN 42 H (9-20) mg/dL Creatinine 1.82 H (0.66-1.25) mg/dL Glucose 140 H (74-99) mg/dL Calcium 8.0 L (8.4-10.2) mg/dL AST 106 H (17-59) U/L ALT 113 H (4-49) U/L Alkaline Phosphatase 164 H (38-126) U/L Troponin I 0.102 H* (0.000-0.034) ng/mL 02/08/23 02/08/23 02/09/23 Range/Units 18:00 21:15 06:47 Lymphocytes # (1.0-4.8) k/uL PT 12.6 H (10.0-12.5) sec INR 1.2 H (<1.2) Sodium (137-145) mmol/L Potassium (3.5-5.1) mmol/L Chloride (98-107) mmol/L BUN (9-20) mg/dL Creatinine (0.66-1.25) mg/dL Glucose (74-99) mg/dL Calcium (8.4-10.2) mg/dL AST (17-59) U/L ALT (4-49) U/L Alkaline Phosphatase (38-126) U/L Troponin I 0.163 H* 0.203 H* (0.000-0.034) ng/mL Assessment and Plan Time with Patient: Less than 30
[2023-02-09] MEDS ORDERED: INSPUCOR MISCELLANE PRN (16:26)
[2023-02-09] MEDS ORDERED: INSULIN PUMP BASAL RATES 1 EACH MISC MISCELLANE PRN (16:26)
[2023-02-09] MEDS ORDERED: INSULIN ASPART (NovoLOG) 100 UNIT/ML VIAL SQ PRN (16:26)
[2023-02-09 16:36] LABS: Glucose,Whole Blood 131 mg/dL (70-110)
[2023-02-09] MEDS: INSULIN PUMP MEAL BOLUS 1 UNIT MISC MISCELLANE SCH ×2 (18:39→21:17)
[2023-02-09 20:15] LABS: Glucose,Whole Blood 64 mg/dL (70-110)
[2023-02-09 21:22] LABS: Glucose,Whole Blood 115 mg/dL (70-110)
[2023-02-09] MEDS: HEPARIN SOD,PORK IN 0.45% NACL 25,000 UNIT in 0.45% NACL 1 250ML.BAG IV SCH (21:26)
[2023-02-10 02:01] LABS: Glucose,Whole Blood 66 mg/dL (70-110)
[2023-02-10 02:27] LABS: Glucose,Whole Blood 63 mg/dL (70-110)
[2023-02-10 02:59] LABS: Glucose,Whole Blood 76 mg/dL (70-110)
[2023-02-10 04:54] LABS: HCT 40.1 % (39.0-53.0); HGB 12.7 gm/dL (13.0-17.5); Hypochromasia Slight; MCH 28.6 pg (25.0-35.0); MCHC 31.6 g/dL (31.0-37.0); MCV 90.6 fL (80.0-100.0); Mean Platelet Volume 8.3; Platelet Count 148 k/uL (150-450); RBC 4.43 m/uL (4.30-5.90); RDW 14.8 % (11.5-15.5)
[2023-02-10 05:02] LABS: Glucose,Whole Blood 89 mg/dL (70-110)
[2023-02-10 05:12] LABS: ALT 86 U/L (4-49); AST 74 U/L (17-59); African American GFR (CKD) 39 (>60 ml/min/1.73 sqM); Albumin 3.3 g/dL (3.5-5.0); Alkaline Phosphatase 148 U/L (38-126); Anion Gap 8 mmol/L; Blood Urea Nitrogen 57 mg/dL (9-20); Calcium 7.8 mg/dL (8.4-10.2); Carbon Dioxide 25 mmol/L (22-30); Chloride 96 mmol/L (98-107); Glucose 83 mg/dL (74-99); Non-African American GFR(CKD) 34 (>60 ml/min/1.73 sqM); Potassium 5.3 mmol/L (3.5-5.1); Sodium 129 mmol/L (137-145); Total Bilirubin 0.5 mg/dL (0.2-1.3); Total Protein 6.5 g/dL (6.3-8.2)
[2023-02-10 06:03] LABS: Glucose,Whole Blood 177 mg/dL (70-110)
[2023-02-10] MEDS: INSULIN PUMP MEAL BOLUS 1 UNIT MISC MISCELLANE SCH ×5 (06:58→21:18)
[2023-02-10] MEDS: carvediloL 3.125 MG TAB PO SCH ×2 (06:59→17:46)
[2023-02-10] MEDS: PENTOXIFYLLINE 400 MG TABLET.ER PO SCH ×2 (06:59→17:52)
[2023-02-10] MEDS: PANTOPRAZOLE 40 MG TABLET PO SCH (06:59)
[2023-02-10] MEDS ORDERED: SODIUM ZIRCONIUM CYCLOSILICATE 10 GM PACKET PO ONE (09:02)
[2023-02-10] MEDS: MAGNESIUM OXIDE 400 MG TAB PO SCH ×2 (09:08→21:27)
[2023-02-10] MEDS: RANOLAZINE 500 MG TAB.ER.12H PO SCH ×2 (09:08→21:27)
[2023-02-10] MEDS: CLOPIDOGREL 75 MG TAB PO SCH (09:08)
[2023-02-10] MEDS: TAMSULOSIN 0.4 MG CAP.ER.24H PO SCH ×2 (09:08→21:27)
[2023-02-10] MEDS: allopurinoL 100 MG TAB PO SCH (09:08)
[2023-02-10] MEDS: SACUBITRIL/VALSARTAN 24 MG-26 MG TABLET PO SCH ×2 (09:08→21:26)
[2023-02-10] MEDS: ATORVASTATIN 80 MG TAB PO SCH (09:08)
[2023-02-10] MEDS ORDERED: FUROSEMIDE 10 MG/ML 4 ML VIAL IV SCH (09:15)
[2023-02-10] MEDS: SENNOSIDES 8.6 MG TAB PO SCH ×2 (09:25→21:18)
[2023-02-10 11:29] LABS: Glucose,Whole Blood 176 mg/dL (70-110)
--- NOTE | 2023-02-10 13:38 | P.PN ---
Subjective Progress Note Date: 02/10/23 This is Neville Curry NP, I'm dictating on behalf of Dr. Devries's H&P and A&P. Patient was interviewed and examined. Patient is a pleasant 72-year-old male who presented to the hospital with congestive heart failure and elevated troponin. Patient had initially been started on a heparin drip secondary to the elevated troponin, however the troponin appears to be flattening and is no longer elevating. Patient is morning reports that he is feeling better. He states that the Lasix is "doing its job". He reports that he is breathing better. GENERAL: Well-appearing, well-nourished and in no acute distress. NECK: Supple without JVD or thyromegaly. LUNGS: Breath sounds clear to auscultation bilaterally. Respiration equal and unlabored. No wheezes, rales or rhonchi. HEART: Regular rate and rhythm without murmurs, rubs or gallops. S1 and S2 heard. EXTREMITIES: Normal range of motion, no edema. No clubbing or cyanosis. Peripheral pulses intact and strong. VITALS: Temp 97.5, pulse 70, respirations 18, blood pressure 131/73, O2 saturation 96% on room air TELEMETRY: Normal sinus rhythm LABS: White count 7, hemoglobin 12.7, platelets 148, sodium 129, potassium 5.3, B1 57, creatinine 1.92, calcium 7.8. IMPRESSION: 1. Acute on chronic systolic heart failure 2. Elevated troponin most likely secondary to heart failure 3. Acute kidney injury 4. CAD with previous CABG 4 5. Hypertension 6. Hyperlipidemia 7. Diabetes 8. History of AICD implantation with previous ICD discharge PLAN: Discontinue heparin drip. Decrease Lasix to 40 mg daily by mouth. Continue Entresto. We will watch the patient's BUN/creatinine and determine if we need to adjust medications any further. Further recommendations based on patient's clinical course. Objective - Vital Signs Vital signs: Vital Signs Temp 97.5 F L 02/10/23 11:33 Pulse 70 02/10/23 11:33 Resp 18 02/10/23 11:33 BP 131/73 02/10/23 11:33 Pulse Ox 96 02/10/23 11:33 FiO2 Intake & Output 02/09/23 02/10/23 02/10/23 18:59 06:59 18:59 Intake Total 148.818 233.692 10 Output Total 300 200 300 Balance -151.182 33.692 -290 Weight 149.6 kg Intake: IV 10 Invasive Line 2 10 Intake, IV Titration 148.818 233.692 Amount Heparin Sod,Pork in 0.45% 148.818 233.692 NaCl 25,000 unit In 0.45 % NaCl 1 250ml.bag @ 6.68 UNITS/KG/HR 9.999 mls/hr IV .Q24H [facility] Rx#: [id number] Oral 0 Output: Urine 300 200 300 Other: Voiding Method Urinal Urinal Urinal # Voids 1 1 1 - Labs CBC & Chem 7: 02/10/23 04:40 02/10/23 04:40 Labs: Abnormal Lab Results - Last 24 Hours (Table) 02/09/23 02/09/23 02/09/23 Range/Units 13:41 16:32 20:13 Hgb (13.0-17.5) gm/dL Plt Count (150-450) k/uL APTT 32.0 H (22.0-30.0) sec Sodium (137-145) mmol/L Potassium (3.5-5.1) mmol/L Chloride (98-107) mmol/L BUN (9-20) mg/dL Creatinine (0.66-1.25) mg/dL POC Glucose (mg/dL) 131 H 64 L (70-110) mg/dL Calcium (8.4-10.2) mg/dL AST (17-59) U/L ALT (4-49) U/L Alkaline Phosphatase (38-126) U/L Albumin (3.5-5.0) g/dL 02/09/23 02/09/23 02/10/23 Range/Units 20:20 21:20 02:00 Hgb (13.0-17.5) gm/dL Plt Count (150-450) k/uL APTT 42.0 H (22.0-30.0) sec Sodium (137-145) mmol/L Potassium (3.5-5.1) mmol/L Chloride (98-107) mmol/L BUN (9-20) mg/dL Creatinine (0.66-1.25) mg/dL POC Glucose (mg/dL) 115 H 66 L (70-110) mg/dL Calcium (8.4-10.2) mg/dL AST (17-59) U/L ALT (4-49) U/L Alkaline Phosphatase (38-126) U/L Albumin (3.5-5.0) g/dL 02/10/23 02/10/23 02/10/23 Range/Units 02:25 04:40 04:40 Hgb 12.7 L (13.0-17.5) gm/dL Plt Count 148 L (150-450) k/uL APTT (22.0-30.0) sec Sodium 129 L (137-145) mmol/L Potassium 5.3 H (3.5-5.1) mmol/L Chloride 96 L (98-107) mmol/L BUN 57 H (9-20) mg/dL Creatinine 1.92 H (0.66-1.25) mg/dL POC Glucose (mg/dL) 63 L (70-110) mg/dL Calcium 7.8 L (8.4-10.2) mg/dL AST 74 H (17-59) U/L ALT 86 H (4-49) U/L Alkaline Phosphatase 148 H (38-126) U/L Albumin 3.3 L (3.5-5.0) g/dL 02/10/23 02/10/23 02/10/23 Range/Units 04:40 06:01 11:28 Hgb (13.0-17.5) gm/dL Plt Count (150-450) k/uL APTT 58.3 H (22.0-30.0) sec Sodium (137-145) mmol/L Potassium (3.5-5.1) mmol/L Chloride (98-107) mmol/L BUN (9-20) mg/dL Creatinine (0.66-1.25) mg/dL POC Glucose (mg/dL) 177 H 176 H (70-110) mg/dL Calcium (8.4-10.2) mg/dL AST (17-59) U/L ALT (4-49) U/L Alkaline Phosphatase (38-126) U/L Albumin (3.5-5.0) g/dL
--- NOTE | 2023-02-10 14:56 | P.PN ---
Subjective Progress Note Date: 02/10/23 This is a 72 year old male with medical history of coronary artery disease post quadruple CABG, AICD, hypertension, diabetes type 2 insulin-dependent insulin pump, history of back surgery and chronic pain, restless leg syndrome and prior history of smoking. Patient has known cardiomyopathy with EF 30% redemonstrated on echocardiogram completed here on 01/15/2023 which reveals an EF of 30-35% severely reduced global LV systolic function and dilated RV with signs of moderate pulmonary hypertension, PPM wire noticed and RV with severe biatrial dilation and dilated IVC with no respiratory collapse. Patient was recently admitted for laproscopic cholecystectomy and was discharged subsequently. Since discharge he states he has had progressive shortness of breath. He also reports lower extremity edema. States no fever or chills. No chest pain. No abdominal pain, no nausea, vomiting or diarrhea. He has been on bactrim recently likely for the lower extremity ulcerations. He additionally does not follow low sodium diet and uses additional table salt with meals. He states he is not producing much urine when he is taking his lasix. He is maintained on lasix 40 mg BID. States he was recently in to see his doctor and his water pill was changed. He is unsure what was changed. Patient was admitted for dyspnea and CHF found to have troponin elevation 0.102, 0.163, 0.203. BUN 42, creatinine 1.82, sodium 132, potassium 5.7. Elevated LFTs. proBNP 2560. Chest xray negative for acute findings. Viral panel negative for influenza A/B, RSV and Covid. He has been started on IV heparin and given a dose of IV lasix, cardiology consulted. 02/10/2023 Patient is evaluated today resting in bed. Reports improvement in shortness of breath. On room air currently. He was started on entresto and carvedilol yeste rday. Sodium 129 today, potassium 5.3, BUN 57, creatinine 1.92. LFTs better. Continues with mild lower extremity edema with worsening erythema as compared to yesterday. Review of Systems Constitutional: Denied any fatigue denied any fever. Cardio vascular: denied any chest pain, palpitations Gastrointestinal: denied any nausea, vomiting, diarrhea Pulmonary: Denied any shortness of breath cough Neurologic denied any new focal deficits All inpatient medications were reviewed and appropriate changes in these medications as dictated in the interval history and assessment and plan. PHYSICAL EXAMINATION: GENERAL: The patient is alert and oriented x3, not in any acute distress. Well developed, well nourished. HEENT: Pupils are round and equally reacting to light. EOMI. No scleral icterus. No conjunctival pallor. Normocephalic, atraumatic. No pharyngeal erythema. No thyromegaly. CARDIOVASCULAR: S1 and S2 present. No murmurs, rubs, or gallops. PULMONARY: Chest is clear to auscultation, no wheezing or crackles. ABDOMEN: Soft, nontender, nondistended, normoactive bowel sounds. No palpable organomegaly. MUSCULOSKELETAL: No joint swelling or deformity. EXTREMITIES: No cyanosis, clubbing, or pedal edema. NEUROLOGICAL: Gross neurological examination did not reveal any focal deficits. SKIN: No rashes. Erythema LE and multiple ulcerations. +1 pitting edema. Assessment Acute on Chronic systolic heart failure with EF 30%. Lower extremity cellulitis and venous stasis ulceration bilaterally. Hyponatremia hypervolemic Troponin elevation secondary to above HERBIE prerenal due to volume overload expected to improve with IV lasix. Coronary artery disease history of quadruple CABG Recent laproscopic cholecystectomy Diabetes type 2 insulin-dependent on insulin pump which will be continued including accuchecks ACHS and sliding scale insulin ordered. Hx of COPD with no acute exacerbation Hx of AICD and cardiomyopathy Hypertension Chronic pain History of gout Restless leg syndrome Morbid obesity BMI 45.2 Former smoker GI prophylaxis DVT prophylaxis Full Code Plan Resume appropriate home medications and cardiology on consultation has recommended to add Entresto and change toprol to carvedilol. Losartan discontinued Lokelma x 1 for the hyperglycemia. Transition to oral lasix Start the patient on IV cefazolin transition to oral keflex on discharge, bactrim not resumed from outpatient due to the HERBIE Patient to continue on accuchecks ACHS and insulin pump Continue oral pain medication and muscle relaxer. Cardiology consultation Repeat labs in AM The impression and plan of care has been dictated by Palmira Salomon, Nurse Practitioner as directed. Dr. Cem MD I have performed a history and physical examination and medical decision making of this patient, discussed the same with the dictator, and agree with the dictators assessment and plan as written, documented as a scribe. Based on total visit time, I have performed more than 50% of this visit. Objective - Vital Signs Vital signs: Vital Signs Temp 97.4 F L 02/09/23 20:00 Pulse 87 02/10/23 04:00 Resp 22 02/10/23 04:00 BP 133/83 02/10/23 04:00 Pulse Ox 96 02/10/23 04:00 FiO2 Intake & Output 02/09/23 02/10/23 02/10/23 18:59 06:59 18:59 Intake Total 148.818 233.692 Output Total 300 200 Balance -151.182 33.692 Weight 149.6 kg Intake: Intake, IV Titration 148.818 233.692 Amount Heparin Sod,Pork in 0.45% 148.818 233.692 NaCl 25,000 unit In 0.45 % NaCl 1 250ml.bag @ 6.68 UNITS/KG/HR 9.999 mls/hr IV .Q24H [facility] Rx#: [id number] Oral 0 Output: Urine 300 200 Other: Voiding Method Urinal Urinal Urinal # Voids 1 1 - Labs CBC & Chem 7: 02/10/23 04:40 02/10/23 04:40 Labs: Abnormal Lab Results - Last 24 Hours (Table) 02/09/23 02/09/23 02/09/23 Range/Units 13:41 16:32 20:13 Hgb (13.0-17.5) gm/dL Plt Count (150-450) k/uL APTT 32.0 H (22.0-30.0) sec Sodium (137-145) mmol/L Potassium (3.5-5.1) mmol/L Chloride (98-107) mmol/L BUN (9-20) mg/dL Creatinine (0.66-1.25) mg/dL POC Glucose (mg/dL) 131 H 64 L (70-110) mg/dL Calcium (8.4-10.2) mg/dL AST (17-59) U/L ALT (4-49) U/L Alkaline Phosphatase (38-126) U/L Albumin (3.5-5.0) g/dL 02/09/23 02/09/23 02/10/23 Range/Units 20:20 21:20 02:00 Hgb (13.0-17.5) gm/dL Plt Count (150-450) k/uL APTT 42.0 H (22.0-30.0) sec Sodium (137-145) mmol/L Potassium (3.5-5.1) mmol/L Chloride (98-107) mmol/L BUN (9-20) mg/dL Creatinine (0.66-1.25) mg/dL POC Glucose (mg/dL) 115 H 66 L (70-110) mg/dL Calcium (8.4-10.2) mg/dL AST (17-59) U/L ALT (4-49) U/L Alkaline Phosphatase (38-126) U/L Albumin (3.5-5.0) g/dL 02/10/23 02/10/23 02/10/23 Range/Units 02:25 04:40 04:40 Hgb 12.7 L (13.0-17.5) gm/dL Plt Count 148 L (150-450) k/uL APTT (22.0-30.0) sec Sodium 129 L (137-145) mmol/L Potassium 5.3 H (3.5-5.1) mmol/L Chloride 96 L (98-107) mmol/L BUN 57 H (9-20) mg/dL Creatinine 1.92 H (0.66-1.25) mg/dL POC Glucose (mg/dL) 63 L (70-110) mg/dL Calcium 7.8 L (8.4-10.2) mg/dL AST 74 H (17-59) U/L ALT 86 H (4-49) U/L Alkaline Phosphatase 148 H (38-126) U/L Albumin 3.3 L (3.5-5.0) g/dL 02/10/23 02/10/23 Range/Units 04:40 06:01 Hgb (13.0-17.5) gm/dL Plt Count (150-450) k/uL APTT 58.3 H (22.0-30.0) sec Sodium (137-145) mmol/L Potassium (3.5-5.1) mmol/L Chloride (98-107) mmol/L BUN (9-20) mg/dL Creatinine (0.66-1.25) mg/dL POC Glucose (mg/dL) 177 H (70-110) mg/dL Calcium (8.4-10.2) mg/dL AST (17-59) U/L ALT (4-49) U/L Alkaline Phosphatase (38-126) U/L Albumin (3.5-5.0) g/dL Assessment and Plan Time with Patient: Less than 30
[2023-02-10] MEDS ORDERED: bisacodyL 5 MG TABLET.DR PO STA (15:45)
[2023-02-10] MEDS ORDERED: LACTULOSE 20 GM/30 ML CUP PO PRN (15:45)
[2023-02-10] MEDS: INSULIN LISPRO (For Pump) 100 UNIT/ML VIAL SQ-PUMP SCH (15:49)
[2023-02-10] MEDS ORDERED: HYDROcodone/APAP 5-325MG 1 EACH TAB PO PRN (16:02)
[2023-02-10 16:13] LABS: Glucose,Whole Blood 265 mg/dL (70-110)
[2023-02-10 20:35] LABS: Glucose,Whole Blood 64 mg/dL (70-110)
[2023-02-10] MEDS ORDERED: FUROSEMIDE 10 MG/ML 2 ML VIAL IV SCH (21:00)
[2023-02-10 21:11] LABS: Glucose,Whole Blood 92 mg/dL (70-110)
[2023-02-10] MEDS: ACETAMINOPHEN TAB 325 MG TAB PO PRN (21:27)
[2023-02-11 02:47] LABS: Glucose,Whole Blood 131 mg/dL (70-110)
[2023-02-11 04:02] LABS: African American GFR (CKD) 43 (>60 ml/min/1.73 sqM); Anion Gap 11 mmol/L; Blood Urea Nitrogen 52 mg/dL (9-20); Calcium 8.1 mg/dL (8.4-10.2); Carbon Dioxide 24 mmol/L (22-30); Chloride 94 mmol/L (98-107); Glucose 130 mg/dL (74-99); Magnesium 2.5 mg/dL (1.6-2.3); Non-African American GFR(CKD) 38 (>60 ml/min/1.73 sqM); Potassium 5.7 mmol/L (3.5-5.1); Sodium 129 mmol/L (137-145)
[2023-02-11] MEDS ORDERED: SODIUM POLYSTYRENE SULFONATE 15 GM/60 ML BOTTLE PO STA (04:39)
[2023-02-11 05:18] LABS: Glucose,Whole Blood 188 mg/dL (70-110)
[2023-02-11] MEDS: INSULIN PUMP MEAL BOLUS 1 UNIT MISC MISCELLANE SCH ×4 (05:58→21:57)
[2023-02-11] MEDS: carvediloL 3.125 MG TAB PO SCH ×2 (06:01→16:48)
[2023-02-11] MEDS: PANTOPRAZOLE 40 MG TABLET PO SCH (06:01)
[2023-02-11] MEDS: PENTOXIFYLLINE 400 MG TABLET.ER PO SCH ×2 (06:01→16:48)
[2023-02-11] MEDS: allopurinoL 100 MG TAB PO SCH (08:37)
[2023-02-11] MEDS: FUROSEMIDE 40 MG TAB PO SCH (08:37)
[2023-02-11] MEDS: CLOPIDOGREL 75 MG TAB PO SCH (08:38)
[2023-02-11] MEDS: TAMSULOSIN 0.4 MG CAP.ER.24H PO SCH ×2 (08:38→23:36)
[2023-02-11] MEDS: RANOLAZINE 500 MG TAB.ER.12H PO SCH ×2 (08:38→21:58)
[2023-02-11] MEDS: ATORVASTATIN 80 MG TAB PO SCH (08:38)
[2023-02-11] MEDS ORDERED: SODIUM ZIRCONIUM CYCLOSILICATE 10 GM PACKET PO ONE (09:00)
[2023-02-11] MEDS: SACUBITRIL/VALSARTAN 24 MG-26 MG TABLET PO SCH ×2 (09:58→22:06)
[2023-02-11] MEDS: MAGNESIUM OXIDE 400 MG TAB PO SCH ×2 (09:59→21:58)
[2023-02-11] MEDS: SENNOSIDES 8.6 MG TAB PO SCH ×2 (09:59→21:58)
[2023-02-11] MEDS: FAMOTIDINE 20 MG TAB PO SCH (10:30)
[2023-02-11] MEDS: LORazepam 1 MG TAB PO PRN (10:30)
[2023-02-11 12:07] LABS: Glucose,Whole Blood 102 mg/dL (70-110)
--- NOTE | 2023-02-11 12:55 | P.PN ---
Subjective Progress Note Date: 02/11/23 This is a 72 year old male with medical history of coronary artery disease post quadruple CABG, AICD, hypertension, diabetes type 2 insulin-dependent insulin pump, history of back surgery and chronic pain, restless leg syndrome and prior history of smoking. Patient has known cardiomyopathy with EF 30% redemonstrated on echocardiogram completed here on 01/15/2023 which reveals an EF of 30-35% severely reduced global LV systolic function and dilated RV with signs of moderate pulmonary hypertension, PPM wire noticed and RV with severe biatrial dilation and dilated IVC with no respiratory collapse. Patient was recently admitted for laproscopic cholecystectomy and was discharged subsequently. Since discharge he states he has had progressive shortness of breath. He also reports lower extremity edema. States no fever or chills. No chest pain. No abdominal pain, no nausea, vomiting or diarrhea. He has been on bactrim recently likely for the lower extremity ulcerations. He additionally does not follow low sodium diet and uses additional table salt with meals. He states he is not producing much urine when he is taking his lasix. He is maintained on lasix 40 mg BID. States he was recently in to see his doctor and his water pill was changed. He is unsure what was changed. Patient was admitted for dyspnea and CHF found to have troponin elevation 0.102, 0.163, 0.203. BUN 42, creatinine 1.82, sodium 132, potassium 5.7. Elevated LFTs. proBNP 2560. Chest xray negative for acute findings. Viral panel negative for influenza A/B, RSV and Covid. He has been started on IV heparin and given a dose of IV lasix, cardiology consulted. 02/10/2023 Patient is evaluated today resting in bed. Reports improvement in shortness of breath. On room air currently. He was started on entresto and carvedilol yeste rday. Sodium 129 today, potassium 5.3, BUN 57, creatinine 1.92. LFTs better. Continues with mild lower extremity edema with worsening erythema as compared to yesterday. 02/11/2023 Patient is evaluated today sitting up at the bedside. He remains on IV cefazolin for lower extremity cellulitis without much improvement. Does deny history of MRSA was on bactrim outpatient. Cardiology continue patient on lokelma for the potassium up to 5.7 today we'll continue on lokelma daily and repeat labs in the morning. Sodium remains on 129 patient is on oral lasix. Continues on room air. He remains on his insulin pump. Review of Systems Constitutional: Denied any fatigue denied any fever. Cardio vascular: denied any chest pain, palpitations Gastrointestinal: denied any nausea, vomiting, diarrhea Pulmonary: Denied any shortness of breath cough Neurologic denied any new focal deficits All inpatient medications were reviewed and appropriate changes in these medications as dictated in the interval history and assessment and plan. PHYSICAL EXAMINATION: GENERAL: The patient is alert and oriented x3, not in any acute distress. Well developed, well nourished. HEENT: Pupils are round and equally reacting to light. EOMI. No scleral icterus. No conjunctival pallor. Normocephalic, atraumatic. No pharyngeal erythema. No thyromegaly. CARDIOVASCULAR: S1 and S2 present. No murmurs, rubs, or gallops. PULMONARY: Chest is clear to auscultation, no wheezing or crackles. ABDOMEN: Soft, nontender, nondistended, normoactive bowel sounds. No palpable organomegaly. MUSCULOSKELETAL: No joint swelling or deformity. EXTREMITIES: No cyanosis, clubbing, or pedal edema. NEUROLOGICAL: Gross neurological examination did not reveal any focal deficits. SKIN: No rashes. Erythema LE and multiple ulcerations. Assessment Acute on Chronic systolic heart failure with EF 30%. Lower extremity cellulitis and venous stasis ulceration bilaterally. Hyponatremia hypervolemic Hyperkalemia on entresto and placed on lokelma daily. Troponin elevation secondary to above HERBIE prerenal due to volume overload expected to improve with IV lasix. Coronary artery disease history of quadruple CABG Recent laproscopic cholecystectomy Diabetes type 2 insulin-dependent on insulin pump which will be continued including accuchecks ACHS and sliding scale insulin ordered. Hx of COPD with no acute exacerbation Hx of AICD and cardiomyopathy Hypertension Chronic pain History of gout Restless leg syndrome Morbid obesity BMI 45.2 Former smoker GI prophylaxis DVT prophylaxis Full Code Plan Resume appropriate home medications and cardiology on consultation has recommended to add Entresto and change toprol to carvedilol. Losartan discontinued Lokelma daily for the hyperkalemia Transition to oral lasix Start the patient on IV cefazolin transition to oral keflex on discharge, bactrim not resumed from outpatient due to the HERBIE. ID consulted. No history of MRSA. Will wound culture the right george. Patient to continue on accuchecks ACHS and insulin pump Continue oral pain medication and muscle relaxer. Cardiology consultation Repeat labs in AM The impression and plan of care has been dictated by Palmira Salomon, Nurse Practitioner as directed. Dr. Cem MD I have performed a history and physical examination and medical decision making of this patient, discussed the same with the dictator, and agree with the dictators assessment and plan as written, documented as a scribe. Based on total visit time, I have performed more than 50% of this visit. Objective - Vital Signs Vital signs: Vital Signs Temp 98.0 F 02/10/23 20:00 Pulse 86 02/11/23 04:00 Resp 20 02/11/23 04:00 BP 128/74 02/11/23 04:00 Pulse Ox 96 02/11/23 04:00 FiO2 Intake & Output 02/10/23 02/11/23 02/11/23 18:59 06:59 18:59 Intake Total 409.765 20 780 Output Total 300 Balance 109.765 20 780 Weight 146.5 kg Intake: IV 20 20 Invasive Line 2 20 20 Intake, IV Titration 149.765 Amount Heparin Sod,Pork in 0.45% 99.765 NaCl 25,000 unit In 0.45 % NaCl 1 250ml.bag @ 6.68 UNITS/KG/HR 9.999 mls/hr IV .Q24H [facility] Rx#: [id number] ceFAZolin 2 gm In Sodium 50 Chloride 0.9% 50 ml @ 100 mls/hr IVPB Q8HR [facility] Rx# :[id number] Oral 240 0 780 Output: Urine 300 Other: Voiding Method Urinal Urinal # Voids 1 3 - Labs CBC & Chem 7: 02/10/23 04:40 02/11/23 03:35 Labs: Abnormal Lab Results - Last 24 Hours (Table) 02/10/23 02/10/23 02/10/23 Range/Units 11:28 16:11 20:34 Sodium (137-145) mmol/L Potassium (3.5-5.1) mmol/L Chloride (98-107) mmol/L BUN (9-20) mg/dL Creatinine (0.66-1.25) mg/dL Glucose (74-99) mg/dL POC Glucose (mg/dL) 176 H 265 H 64 L (70-110) mg/dL Calcium (8.4-10.2) mg/dL Magnesium (1.6-2.3) mg/dL 02/11/23 02/11/23 02/11/23 Range/Units 02:43 03:35 05:15 Sodium 129 L (137-145) mmol/L Potassium 5.7 H (3.5-5.1) mmol/L Chloride 94 L (98-107) mmol/L BUN 52 H (9-20) mg/dL Creatinine 1.75 H (0.66-1.25) mg/dL Glucose 130 H (74-99) mg/dL POC Glucose (mg/dL) 131 H 188 H (70-110) mg/dL Calcium 8.1 L (8.4-10.2) mg/dL Magnesium 2.5 H (1.6-2.3) mg/dL Assessment and Plan Time with Patient: Less than 30
[2023-02-11] MEDS: INSULIN LISPRO (For Pump) 100 UNIT/ML VIAL SQ-PUMP SCH (13:38)
--- NOTE | 2023-02-11 13:53 | P.PN ---
Subjective Progress Note Date: 02/11/23 The patient is a 72-year-old male who presented to the hospital with increased shortness of breath. Cardiology was consulted for congestive heart failure and elevated troponin. Over the course of his admission he has been thoroughly diuresed and has been started on Entresto. Unfortunately the patient has developed hyperkalemia with impaired kidney function. Extensive conversation with both patient and his daughter regarding congestive heart failure management. we would recommend that he continue Emtresto along with a low potassium diet and Lokelma. The patient states his breathing is better and he does wish to be discharged home. We discussed that it is important that he stay in the hospital until his hyperkalemia is managed on his current cardiac medication regimen. He denies any chest pain. He does have some shortness of breath with significant exertion, but is able to ambulate around his room without difficulty. GENERAL: Well-appearing, obese malend in no acute distress. NECK: Supple without JVD or thyromegaly. LUNGS: Breath sounddiminishedto auscultation bilaterally. Respiration equal and unlabored. No wheezes, rales or rhonchi. HEART: Regular rate and rhythm without murmurs, rubs or gallops. S1 and S2 heard. EXTREMITIES: Normal range of motion, no edema. No clubbing or cyanosis. Peripheral pulses intact and strong. TELEMETRY: Sinus rhythm IMPRESSION: Acute on chronic systolic heart failure Elevated troponin secondary to heart failure Acute kidney injury Coronary artery disease with prior CABG Ischemic cardiomyopathy status post AICD Hyperkalemia Hyperlipidemia Diabetes PLAN: Start Lokelma Low potassium diet information provided Continue aggressive pulmonary hygiene If his kidney function continues to improve and his potassium level stabilized, he may be discharged within the next 24 and 48 hours I am dictating on behalf of Dr Tito Devries's history/physical and assessment/plan. Objective - Vital Signs Vital signs: Vital Signs Temp 98.0 F 02/10/23 20:00 Pulse 90 02/11/23 12:00 Resp 18 02/11/23 12:00 BP 135/60 02/11/23 12:00 Pulse Ox 94 L 02/11/23 12:00 FiO2 Intake & Output 02/10/23 02/11/23 02/11/23 18:59 06:59 18:59 Intake Total 409.765 20 780 Output Total 300 Balance 109.765 20 780 Weight 146.5 kg Intake: IV 20 20 Invasive Line 2 20 20 Intake, IV Titration 149.765 Amount Heparin Sod,Pork in 0.45% 99.765 NaCl 25,000 unit In 0.45 % NaCl 1 250ml.bag @ 6.68 UNITS/KG/HR 9.999 mls/hr IV .Q24H [facility] Rx#: [id number] ceFAZolin 2 gm In Sodium 50 Chloride 0.9% 50 ml @ 100 mls/hr IVPB Q8HR [facility] Rx# :[id number] Oral 240 0 780 Output: Urine 300 Other: Voiding Method Urinal Urinal Urinal # Voids 1 3 - Labs CBC & Chem 7: 02/10/23 04:40 02/11/23 03:35 Labs: Abnormal Lab Results - Last 24 Hours (Table) 02/10/23 02/10/23 02/11/23 Range/Units 16:11 20:34 02:43 Sodium (137-145) mmol/L Potassium (3.5-5.1) mmol/L Chloride (98-107) mmol/L BUN (9-20) mg/dL Creatinine (0.66-1.25) mg/dL Glucose (74-99) mg/dL POC Glucose (mg/dL) 265 H 64 L 131 H (70-110) mg/dL Calcium (8.4-10.2) mg/dL Magnesium (1.6-2.3) mg/dL 02/11/23 02/11/23 Range/Units 03:35 05:15 Sodium 129 L (137-145) mmol/L Potassium 5.7 H (3.5-5.1) mmol/L Chloride 94 L (98-107) mmol/L BUN 52 H (9-20) mg/dL Creatinine 1.75 H (0.66-1.25) mg/dL Glucose 130 H (74-99) mg/dL POC Glucose (mg/dL) 188 H (70-110) mg/dL Calcium 8.1 L (8.4-10.2) mg/dL Magnesium 2.5 H (1.6-2.3) mg/dL
[2023-02-11 16:23] LABS: Glucose,Whole Blood 75 mg/dL (70-110)
[2023-02-11 20:20] LABS: Glucose,Whole Blood 134 mg/dL (70-110)
[2023-02-11] MEDS: diazePAM 5 MG TAB PO PRN (22:03)
--- NOTE | 2023-02-11 22:22 | P.CONS ---
History of Present Illness - Reason for Consult Consult date: 02/11/23 - History of Present Illness Patient is a 72-year-old male with a past medical history significant for diabetes mellitus and hypertension presenting to the hospital for evaluation of increasing shortness of breath and bilateral lower extremity swelling patient symptom has been going on for few days before presentation to the hospital, patient denies having any chest pain has been mostly shortness of breath on minimal exertion even at rest denies having any cough or sputum production with associated increasing swelling to bilateral lower extremity with some redness some superficial ulceration from ruptured blister and clear drainage has been complaining of pain to the lower extremity more of a dull aching mild to moderate intensity no radiation with the symptoms the patient has been evaluated on presentation to the hospital patient was afebrile and no fever has been recorded into this hospital stay patient was not tachycardic hypotensive or hypoxic patient did have white count of 8.3 BUN/creatinine was mildly elevated influenza RSV COVID testing was negative patient did have a chest x-ray no acute pulmonary process patient has been admitted to the hospital treated for CHF infectious he was consulted because of bilateral lower extremity cellulitis Past Medical History Past Medical History: Diabetes Mellitus, Hypertension Additional Past Medical History / Comment(s): vertigo, insulin pump Last Myocardial Infarction Date:: 1989 History of Any Multi-Drug Resistant Organisms: None Reported Past Surgical History: Appendectomy, Back Surgery, Cholecystectomy, Coronary Bypass/CABG, Joint Replacement, Orthopedic Surgery, Tonsillectomy Additional Past Surgical History / Comment(s): HAS HAD ATTEMPTED SEVERAL COLONOSCOPIES IN THE PAST MONTHS, HOWEVER, BOWEL WAS NOT TOTALLY CLEAN. 06-03-15 total rt shoulder Past Anesthesia/Blood Transfusion Reactions: No Reported Reaction Type of Cardiac Device: AICD Device Placement Date:: Past Psychological History: No Psychological Hx Reported Smoking Status: Former smoker Past Alcohol Use History: Occasional Past Drug Use History: None Reported - Past Family History Mother Family Medical History: Cancer Additional Family Medical History / Comment(s): breast bowel liver ca Father Family Medical History: Myocardial Infarction (OR) Additional Family Medical History / Comment(s): first mi at age 32 and w/3rd mi at age 44 Medications and Allergies Home Medications Medication Instructions Recorded Confirmed Type allopurinoL [Zyloprim] 100 mg PO DAILY 06/24/13 02/08/23 History Atorvastatin [Lipitor] 80 mg PO DAILY 05/05/15 02/08/23 History Baclofen [Lioresal] 10 mg PO TID 05/05/15 02/08/23 History Diazepam [Valium] 10 mg PO BID PRN 05/05/15 02/08/23 History Losartan Potassium [Cozaar] 100 mg PO DAILY 05/05/15 02/08/23 History rOPINIRole HCL [Requip] 3 mg PO BID 05/05/15 02/08/23 History Albuterol Inhaler [Ventolin Hfa 1 - 2 puff INHALATION RT-Q6H PRN 01/14/23 02/08/23 History Inhaler] Clopidogrel [Plavix] 75 mg PO DAILY 01/14/23 02/08/23 History Furosemide [Lasix] 40 mg PO DAILY 01/14/23 02/08/23 History INSULIN LISPRO (For Pump) [humaLOG 0.01 units SQ-PUMP CONTINUOUS 01/14/2305/29 History (For Pump)] Insulin Lispro [humaLOG Kwikpen] 1 - 25 unit SQ TID-W/MEALS PRN 01/14/23 02/08/23 History LORazepam [Ativan] 1 mg PO BID PRN 01/14/23 02/08/23 History Magnesium Oxide [Salomon] 500 mg PO BID 01/14/23 02/08/23 History Mupirocin Calcium 2% Cream 1 applic TOPICAL BID PRN 01/14/23 02/08/23 History [Bactroban 2% Cream] Pentoxifylline [TRENtal] 400 mg PO AC-BID 01/14/23 02/08/23 History Ranolazine [Ranexa] 500 mg PO BID 01/14/23 02/08/23 History Tamsulosin [Flomax] 0.4 mg PO BID 01/14/23 02/08/23 History Triamcinolone 0.1% Lotion [Kenalog 1 applic TOPICAL BID PRN 01/14/23 02/08/23 History 0.1% Lotion] Acetaminophen Tab [Tylenol Tab] 650 mg PO Q4H PRN #30 tablet 01/18/23 02/08/23 Rx Metoprolol Succinate (ER) [Toprol 25 mg PO DAILY #30 tab 01/18/23 02/08/23 Rx XL] oxyCODONE HCL [OxyIR] 5 mg PO Q6H PRN 3 Days #12 tab 01/18/23 02/08/23 Rx Spironolactone [Aldactone] 100 mg PO DAILY 02/08/23 02/08/23 History Sulfamethox-Tmp 800-160Mg [Bactrim 1 tab PO BID 02/08/23 02/08/23 History DS 800-160 mg] Allergies Allergy/AdvReac Type Severity Reaction Status Date / Time No Known Allergies Allergy Verified 02/08/23 16:40 Physical Exam Vitals: Vital Signs Temp Pulse Resp BP Pulse Ox 02/11/23 12:00 90 18 135/60 94 L 02/11/23 08:00 90 20 127/63 95 02/11/23 04:00 86 20 128/74 96 02/11/23 01:37 81 20 02/11/23 00:00 81 20 113/61 96 02/10/23 20:00 98.0 F 91 22 131/74 98 02/10/23 15:43 98.0 F 80 18 115/71 99 Intake and Output 02/10/23 02/11/23 02/11/23 22:59 06:59 14:59 Intake Total 310 10 898 Balance 310 10 898 Intake: IV 20 10 Invasive Line 2 20 10 Intake, IV Titration 50 Amount ceFAZolin 2 gm In Sodium 50 Chloride 0.9% 50 ml @ 100 mls/hr IVPB Q8HR [facility] Rx# :[id number] Oral 240 898 Other: Voiding Method Urinal Urinal Urinal # Voids 3 Weight 146.5 kg Results CBC & Chem 7: 02/10/23 04:40 02/11/23 16:04 Labs: Abnormal Lab Results - Last 24 Hours (Table) 02/10/23 02/10/23 02/11/23 Range/Units 16:11 20:34 02:43 Sodium (137-145) mmol/L Potassium (3.5-5.1) mmol/L Chloride (98-107) mmol/L BUN (9-20) mg/dL Creatinine (0.66-1.25) mg/dL Glucose (74-99) mg/dL POC Glucose (mg/dL) 265 H 64 L 131 H (70-110) mg/dL Calcium (8.4-10.2) mg/dL Magnesium (1.6-2.3) mg/dL 02/11/23 02/11/23 Range/Units 03:35 05:15 Sodium 129 L (137-145) mmol/L Potassium 5.7 H (3.5-5.1) mmol/L Chloride 94 L (98-107) mmol/L BUN 52 H (9-20) mg/dL Creatinine 1.75 H (0.66-1.25) mg/dL Glucose 130 H (74-99) mg/dL POC Glucose (mg/dL) 188 H (70-110) mg/dL Calcium 8.1 L (8.4-10.2) mg/dL Magnesium 2.5 H (1.6-2.3) mg/dL Assessment and Plan Plan: 1patient with bilateral lower extremity cellulitis in this patient who did have diffuse swelling redness and evidence of fluid overload likely streptococcal disease 2-marked the area the redness and apply Bal wrap to both leg from just above the toe to below the knee change daily 3-cefazolin 2 g every 8 hours with a plan to finish therapy with oral Keflex once clinically improved We will follow on clinical condition and cultures to further adjust medication if needed Thank you for this consultation we will follow the patient along with you Dictation was produced using [employer] dictation software. please excuse any grammatical, word or spelling errors. Time with Patient: Greater than 30
[2023-02-12 06:16] LABS: Glucose,Whole Blood 189 mg/dL (70-110)
[2023-02-12] MEDS: carvediloL 3.125 MG TAB PO SCH (06:49)
[2023-02-12] MEDS: PENTOXIFYLLINE 400 MG TABLET.ER PO SCH ×2 (06:50→17:24)
[2023-02-12] MEDS: INSULIN PUMP MEAL BOLUS 1 UNIT MISC MISCELLANE SCH ×4 (06:50→20:59)
[2023-02-12 09:50] LABS: Potassium 4.8 mmol/L (3.5-5.1)
[2023-02-12] MEDS: LORazepam 1 MG TAB PO PRN (09:50)
[2023-02-12] MEDS: SACUBITRIL/VALSARTAN 24 MG-26 MG TABLET PO SCH ×2 (09:50→20:17)
[2023-02-12 09:51] LABS: African American GFR (CKD) 69 (>60 ml/min/1.73 sqM); Anion Gap 11 mmol/L; Blood Urea Nitrogen 31 mg/dL (9-20); Calcium 8.1 mg/dL (8.4-10.2); Carbon Dioxide 23 mmol/L (22-30); Chloride 96 mmol/L (98-107); Glucose 252 mg/dL (74-99); Non-African American GFR(CKD) 60 (>60 ml/min/1.73 sqM); Sodium 130 mmol/L (137-145)
[2023-02-12] MEDS: FAMOTIDINE 20 MG TAB PO SCH (09:51)
[2023-02-12] MEDS: FUROSEMIDE 40 MG TAB PO SCH (09:51)
[2023-02-12] MEDS: ATORVASTATIN 80 MG TAB PO SCH (09:51)
[2023-02-12] MEDS: CLOPIDOGREL 75 MG TAB PO SCH (09:51)
[2023-02-12] MEDS: SENNOSIDES 8.6 MG TAB PO SCH ×2 (09:51→20:17)
[2023-02-12] MEDS: allopurinoL 100 MG TAB PO SCH (09:51)
[2023-02-12] MEDS: TAMSULOSIN 0.4 MG CAP.ER.24H PO SCH ×2 (09:51→20:16)
[2023-02-12] MEDS: RANOLAZINE 500 MG TAB.ER.12H PO SCH ×2 (09:51→20:16)
[2023-02-12] MEDS: MAGNESIUM OXIDE 400 MG TAB PO SCH ×2 (09:51→20:17)
[2023-02-12] MEDS: SODIUM ZIRCONIUM CYCLOSILICATE 10 GM PACKET PO SCH (09:51)
[2023-02-12 12:05] LABS: Glucose,Whole Blood 389 mg/dL (70-110)
[2023-02-12] MEDS: INSULIN LISPRO (For Pump) 100 UNIT/ML VIAL SQ-PUMP SCH (12:32)
--- NOTE | 2023-02-12 12:37 | P.PN ---
Subjective HISTORY OF PRESENT ILLNESS: The patient is a 72-year-old male who presented to the hospital with increased shortness of breath. Cardiology was consulted for congestive heart failure and elevated troponin. Over the course of his admission he has been thoroughly diuresed and has been started on Entresto. Unfortunately the patient has developed hyperkalemia with impaired kidney function. Extensive conversation with both patient and his daughter regarding congestive heart failure management. we would recommend that he continue Emtresto along with a low potassium diet and Lokelma. The patient states his breathing is better and he does wish to be discharged home. We discussed that it is important that he stay in the hospital until his hyperkalemia is managed on his current cardiac medication regimen. He denies any chest pain. He does have some shortness of breath with significant exertion, but is able to ambulate around his room without difficulty. 02/12/2023 Patient examined this morning at the bedside. Patient is sitting on the side of the bed in no acute distress. He denies any chest pain or pressure. He denies any shortness of breath. Reports anxiety this morning and is requesting his medications to be increased in frequency. Vital signs are stable. Potassium 4.8. BUN 31. Creatinine 1.19. PHYSICAL EXAM: VITAL SIGNS: Reviewed. GENERAL: Well-developed in no acute distress. NECK: Supple. No JVD or thyromegaly LUNGS: Respirations even and unlabored. Lungs essentially clear to auscultation bilaterally. HEART: Regular rate and rhythm. S1 and S2 heard. EXTREMITIES: Normal range of motion. No clubbing or cyanosis. Peripheral pulses intact. No lower extremity edema ASSESSMENT: Acute on chronic heart failure with reduced ejection fraction Elevated troponin secondary to heart failure Acute kidney injury Coronary artery disease with prior CABG Ischemic cardiomyopathy status post AICD Hyperkalemia Hyperlipidemia Diabetes PLAN: Continue current cardiac medications Increase carvedilol to 6.25 mg twice a day Continue to monitor potassium levels Continue to monitor patient for an additional 24 hours Anticipate discharge home tomorrow Nurse practitioner note has been reviewed by physician. Signing provider agrees with the documented findings, assessment, and plan of care. Objective - Vital Signs Vital signs: Vital Signs Temp 97.3 F L 02/12/23 08:42 Pulse 102 H 02/12/23 11:05 Resp 16 02/12/23 11:05 BP 151/80 02/12/23 11:05 Pulse Ox 93 L 01/08/24 11:05 FiO2 Intake & Output 02/11/23 02/12/23 02/12/23 18:59 06:59 18:59 Intake Total 1016 240 300 Balance 1016 240 300 Weight 148.5 kg Intake: Oral 1016 240 300 Other: Voiding Method Urinal Urinal Urinal # Voids 4 1 0 # Bowel Movements 4 0 - Labs CBC & Chem 7: 02/10/23 04:40 02/12/23 07:52 Labs: Abnormal Lab Results - Last 24 Hours (Table) 02/11/23 02/12/23 02/12/23 Range/Units 20:19 06:14 07:52 Sodium 130 L (137-145) mmol/L Chloride 96 L (98-107) mmol/L BUN 31 H (9-20) mg/dL Glucose 252 H (74-99) mg/dL POC Glucose (mg/dL) 134 H 189 H (70-110) mg/dL Calcium 8.1 L (8.4-10.2) mg/dL 02/12/23 Range/Units 11:59 Sodium (137-145) mmol/L Chloride (98-107) mmol/L BUN (9-20) mg/dL Glucose (74-99) mg/dL POC Glucose (mg/dL) 389 H (70-110) mg/dL Calcium (8.4-10.2) mg/dL
[2023-02-12 16:52] LABS: Glucose,Whole Blood 188 mg/dL (70-110)
[2023-02-12] MEDS ORDERED: carvediloL 6.25 MG TAB PO SCH (17:30)
--- NOTE | 2023-02-12 18:13 | P.PN ---
Subjective This is a 72 year old male with medical history of coronary artery disease post quadruple CABG, AICD, hypertension, diabetes type 2 insulin-dependent insulin pump, history of back surgery and chronic pain, restless leg syndrome and prior history of smoking. Patient has known cardiomyopathy with EF 30% redemonstrated on echocardiogram completed here on 01/15/2023 which reveals an EF of 30-35% severely reduced global LV systolic function and dilated RV with signs of moderate pulmonary hypertension, PPM wire noticed and RV with severe biatrial d ilation and dilated IVC with no respiratory collapse. Patient was recently admitted for laproscopic cholecystectomy and was discharged subsequently. Since discharge he states he has had progressive shortness of breath. He also reports lower extremity edema. States no fever or chills. No chest pain. No abdominal pain, no nausea, vomiting or diarrhea. He has been on bactrim recently likely for the lower extremity ulcerations. He additionally does not follow low sodium diet and uses additional table salt with meals. He states he is not producing much urine when he is taking his lasix. He is maintained on lasix 40 mg BID. States he was recently in to see his doctor and his water pill was changed. He is unsure what was changed. Patient was admitted for dyspnea and CHF found to have troponin elevation 0.102, 0.163, 0.203. BUN 42, creatinine 1.82, sodium 132, potassium 5.7. Elevated LFTs. proBNP 2560. Chest xray negative for acute findings. Viral panel negative for influenza A/B, RSV and Covid. He has been started on IV heparin and given a dose of IV lasix, cardiology consulted. 02/10/2023 Patient is evaluated today resting in bed. Reports improvement in shortness of breath. On room air currently. He was started on entresto and carvedilol yesterday. Sodium 129 today, potassium 5.3, BUN 57, creatinine 1.92. LFTs better. Continues with mild lower extremity edema with worsening erythema as compared to yesterday. 02/11/2023 Patient is evaluated today sitting up at the bedside. He remains on IV cefazolin for lower extremity cellulitis without much improvement. Does deny history of MRSA was on bactrim outpatient. Cardiology continue patient on lokelma for the potassium up to 5.7 today we'll continue on lokelma daily and repeat labs in the morning. Sodium remains on 129 patient is on oral lasix. Continues on room air. He remains on his insulin pump. 02/12/2023 Patient dyspnea improved, no orthopnea no exertional dyspnea Very mild occasional coughing No chest pain. No other new complaint. Patient states his back to normal self. Still mildly tachycardic and tachypneic Creatinine back to normal at 0.1 His currently on cefazolin for bilateral lower extensor with cellulitis Possible discharge in 24-48 hours if he keeps improving Review of Systems Constitutional: Denied any fatigue denied any fever. Cardio vascular: denied any chest pain, palpitations Gastrointestinal: denied any nausea, vomiting, diarrhea Pulmonary: Denied any shortness of breath cough Neurologic denied any new focal deficits Objective - Vital Signs Vital signs: Vital Signs Temp 97.3 F L 02/12/23 08:42 Pulse 102 H 02/12/23 11:05 Resp 16 02/12/23 11:05 BP 151/80 02/12/23 11:05 Pulse Ox 93 L 02/12/23 11:05 FiO2 Intake & Output 02/11/23 02/12/23 02/12/23 18:59 06:59 18:59 Intake Total 1016 240 300 Balance 1016 240 300 Weight 148.5 kg Intake: Oral 1016 240 300 Other: Voiding Method Urinal Urinal Urinal # Voids 4 1 0 # Bowel Movements 4 0 - Labs CBC & Chem 7: 02/10/23 04:40 02/12/23 07:52 Labs: Abnormal Lab Results - Last 24 Hours (Table) 02/11/23 02/12/23 02/12/23 Range/Units 20:19 06:14 07:52 Sodium 130 L (137-145) mmol/L Chloride 96 L (98-107) mmol/L BUN 31 H (9-20) mg/dL Glucose 252 H (74-99) mg/dL POC Glucose (mg/dL) 134 H 189 H (70-110) mg/dL Calcium 8.1 L (8.4-10.2) mg/dL 02/12/23 Range/Units 11:59 Sodium (137-145) mmol/L Chloride (98-107) mmol/L BUN (9-20) mg/dL Glucose (74-99) mg/dL POC Glucose (mg/dL) 389 H (70-110) mg/dL Calcium (8.4-10.2) mg/dL Assessment and Plan Assessment: Acute on Chronic systolic heart failure with EF 30%. Lower extremity cellulitis and venous stasis ulceration bilaterally. Hyponatremia hypervolemic Hyperkalemia on entresto and placed on lokelma daily. Troponin elevation secondary to above HERBIE prerenal due to volume overload expected to improve with IV lasix. Coronary artery disease history of quadruple CABG Recent laproscopic cholecystectomy Diabetes type 2 insulin-dependent on insulin pump which will be continued including accuchecks ACHS and sliding scale insulin ordered. Hx of COPD with no acute exacerbation Hx of AICD and cardiomyopathy Hypertension Chronic pain History of gout Restless leg syndrome Morbid obesity BMI 45.2 Former smoker GI prophylaxis DVT prophylaxis Full Code Plan: Resume appropriate home medications and cardiology on consultation has recommended to add Entresto and change toprol to carvedilol. Losartan discontinued Lokelma daily for the hyperkalemia Transition to oral lasix Start the patient on IV cefazolin transition to oral keflex on discharge, bactrim not resumed from outpatient due to the HERBIE. ID consulted. No history of MRSA. Will wound culture the right george. Patient to continue on accuchecks ACHS and insulin pump Continue oral pain medication and muscle relaxer. Cardiology consultation DVT prophylaxis: SC heparin GI prophylaxis: Pepcid
[2023-02-12] MEDS: diazePAM 5 MG TAB PO PRN (20:17)
[2023-02-12] MEDS: HEPARIN SODIUM,PORCINE 5,000 UNIT/ML 1 ML VIAL SQ SCH (20:17)
[2023-02-12 20:55] LABS: Glucose,Whole Blood 118 mg/dL (70-110)
--- NOTE | 2023-02-12 21:33 | P.PN ---
Subjective Progress Note Date: 02/12/23 Principal diagnosis: Reason for follow-up is bilateral lower extremity cellulitis Patient is a 72-year-old male with a past medical history significant for diabetes mellitus and hypertension presenting to the hospital for evaluation of increasing shortness of breath and bilateral lower extremity swelling, patient be diagnosed with bilateral lower extremity cellulitis. On today's evaluation that is 02/22/2023,Patient denies having any fever or any chills, the patient is breathing comfortably on room air patient denies having any chest pain shortness of breath patient cough no nausea with no abdominal pain overall swelling and redness to the leg has decreased in intensity. The patient did have a white count of 7.0 creatinine is 1.19 Objective - Vital Signs Vital signs: Vital Signs Temp 97.3 F L 02/12/23 08:42 Pulse 102 H 02/12/23 11:05 Resp 16 02/12/23 11:05 BP 151/80 02/12/23 11:05 Pulse Ox 93 L 02/12/23 11:05 FiO2 Intake & Output 02/11/23 02/12/23 02/12/23 18:59 06:59 18:59 Intake Total 1016 240 300 Balance 1016 240 300 Weight 148.5 kg Intake: Oral 1016 240 300 Other: Voiding Method Urinal Urinal # Voids 4 1 0 # Bowel Movements 4 0 - Exam GENERAL DESCRIPTION: An elderly male lying in bed in no distress RESPIRATORY SYSTEM: Unlabored breathing , decreased breath sounds at bases HEART: S1 S2 regular rate and rhythm , ABDOMEN: Soft , no tenderness EXTREMITIES: Diffuse swelling and some redness to bilateral lower extremity did have some superficial blistering no foul-smelling drainage - Labs CBC & Chem 7: 02/10/23 04:40 02/12/23 07:52 Labs: Abnormal Lab Results - Last 24 Hours (Table) 02/11/23 02/12/23 02/12/23 Range/Units 20:19 06:14 07:52 Sodium 130 L (137-145) mmol/L Chloride 96 L (98-107) mmol/L BUN 31 H (9-20) mg/dL Glucose 252 H (74-99) mg/dL POC Glucose (mg/dL) 134 H 189 H (70-110) mg/dL Calcium 8.1 L (8.4-10.2) mg/dL Assessment and Plan (1) Bilateral lower leg cellulitis Current Visit: Yes Status: Acute Code(s): L03.116 - CELLULITIS OF LEFT LOWER LIMB; L03.115 - CELLULITIS OF RIGHT LOWER LIMB SNOMED Code(s): 718331192 Plan: 1patient with bilateral lower extremity cellulitis in this patient who did have diffuse swelling redness and evidence of fluid overload likely streptococcal disease 2-patient has been advised Bal wrap to both leg from just above the toe to below the knee change daily to keep the swelling down 3-patient to continue with cefazolin 2 g every 8 hours and monitor clinical course closely Dictation was produced using [employer] dictation software. please excuse any grammatical, word or spelling errors. Time with Patient: Less than 30
[2023-02-13 05:59] LABS: Glucose,Whole Blood 199 mg/dL (70-110)
[2023-02-13] MEDS: INSULIN PUMP MEAL BOLUS 1 UNIT MISC MISCELLANE SCH ×2 (06:17→12:30)
[2023-02-13] MEDS: PENTOXIFYLLINE 400 MG TABLET.ER PO SCH (06:17)
[2023-02-13] MEDS ORDERED: carvediloL 12.5 MG TAB PO SCH (07:30)
[2023-02-13 07:44] LABS: African American GFR (CKD) 71 (>60 ml/min/1.73 sqM); Anion Gap 9 mmol/L; Blood Urea Nitrogen 30 mg/dL (9-20); Calcium 8.3 mg/dL (8.4-10.2); Carbon Dioxide 26 mmol/L (22-30); Chloride 99 mmol/L (98-107); Glucose 138 mg/dL (74-99); Non-African American GFR(CKD) 61 (>60 ml/min/1.73 sqM); Potassium 4.6 mmol/L (3.5-5.1); Sodium 134 mmol/L (137-145)
[2023-02-13] MEDS: SODIUM ZIRCONIUM CYCLOSILICATE 10 GM PACKET PO SCH (08:56)
[2023-02-13] MEDS: HEPARIN SODIUM,PORCINE 5,000 UNIT/ML 1 ML VIAL SQ SCH (08:56)
[2023-02-13] MEDS: MAGNESIUM OXIDE 400 MG TAB PO SCH (08:57)
[2023-02-13] MEDS: FUROSEMIDE 40 MG TAB PO SCH (08:57)
[2023-02-13] MEDS: SACUBITRIL/VALSARTAN 24 MG-26 MG TABLET PO SCH (08:57)
[2023-02-13] MEDS: CLOPIDOGREL 75 MG TAB PO SCH (08:57)
[2023-02-13] MEDS: SENNOSIDES 8.6 MG TAB PO SCH (08:57)
[2023-02-13] MEDS: allopurinoL 100 MG TAB PO SCH (08:57)
[2023-02-13] MEDS: FAMOTIDINE 20 MG TAB PO SCH (08:57)
[2023-02-13] MEDS: TAMSULOSIN 0.4 MG CAP.ER.24H PO SCH (08:57)
[2023-02-13] MEDS: RANOLAZINE 500 MG TAB.ER.12H PO SCH (08:57)
[2023-02-13] MEDS: ATORVASTATIN 80 MG TAB PO SCH (08:57)
[2023-02-13] MEDS: LORazepam 1 MG TAB PO PRN (10:28)
[2023-02-13 11:25] LABS: Glucose,Whole Blood 140 mg/dL (70-110)
--- NOTE | 2023-02-13 12:55 | P.PN ---
Subjective HISTORY OF PRESENT ILLNESS: The patient is a 72-year-old male who presented to the hospital with increased shortness of breath. Cardiology was consulted for congestive heart failure and elevated troponin. Over the course of his admission he has been thoroughly diuresed and has been started on Entresto. Unfortunately the patient has developed hyperkalemia with impaired kidney function. Extensive conversation with both patient and his daughter regarding congestive heart failure management. we would recommend that he continue Emtresto along with a low potassium diet and Lokelma. The patient states his breathing is better and he does wish to be discharged home. We discussed that it is important that he stay in the hospital until his hyperkalemia is managed on his current cardiac medication regimen. He denies any chest pain. He does have some shortness of breath with significant exertion, but is able to ambulate around his room without difficulty. 02/12/2023 Patient examined this morning at the bedside. Patient is sitting on the side of the bed in no acute distress. He denies any chest pain or pressure. He denies any shortness of breath. Reports anxiety this morning and is requesting his medications to be increased in frequency. Vital signs are stable. Potassium 4.8. BUN 31. Creatinine 1.19. 02/13/2023 Patient examined this morning. He is sitting on the side of the bed. He denies any chest pain or pressure. Denies shortness of breath. Vital signs are stable. He is anxious to be discharged home today. He remains on oral diuretics. PHYSICAL EXAM: VITAL SIGNS: Reviewed. GENERAL: Well-developed in no acute distress. NECK: Supple. No JVD or thyromegaly LUNGS: Respirations even and unlabored. Lungs essentially clear to auscultation bilaterally. HEART: Regular rate and rhythm. S1 and S2 heard. EXTREMITIES: Normal range of motion. No clubbing or cyanosis. Peripheral pulses intact. 1-2+ bilateral lower extremity edema with erythema noted bilaterally ASSESSMENT: Acute on chronic heart failure with reduced ejection fraction Elevated troponin secondary to heart failure Acute kidney injury Coronary artery disease with prior CABG Ischemic cardiomyopathy status post AICD Hyperkalemia Hyperlipidemia Diabetes Bilateral lower extremity cellulitis PLAN: Continue current cardiac medications Patient is stable for discharge home today from a cardiac standpoint He is to follow up post discharge in the office Nurse practitioner note has been reviewed by physician. Signing provider agrees with the documented findings, assessment, and plan of care. Objective - Vital Signs Vital signs: Vital Signs Temp 98.0 F 02/13/23 12:00 Pulse 88 02/13/23 12:00 Resp 16 02/13/23 12:00 BP 116/76 02/13/23 12:00 Pulse Ox 95 02/13/23 12:00 FiO2 Intake & Output 02/12/23 02/13/23 02/13/23 18:59 06:59 18:59 Intake Total 420 120 Output Total 1 1 Balance 420 119 -1 Weight 149 kg Intake: Oral 420 120 Output: Stool 1 1 Other: Voiding Method Urinal Urinal Urinal # Voids 1 3 2 # Bowel Movements 0 - Labs CBC & Chem 7: 02/10/23 04:40 02/13/23 07:15 Labs: Abnormal Lab Results - Last 24 Hours (Table) 02/12/23 02/12/23 02/13/23 Range/Units 16:50 20:54 05:57 Sodium (137-145) mmol/L BUN (9-20) mg/dL Glucose (74-99) mg/dL POC Glucose (mg/dL) 188 H 118 H 199 H (70-110) mg/dL Calcium (8.4-10.2) mg/dL 02/13/23 02/13/23 Range/Units 07:15 11:23 Sodium 134 L (137-145) mmol/L BUN 30 H (9-20) mg/dL Glucose 138 H (74-99) mg/dL POC Glucose (mg/dL) 140 H (70-110) mg/dL Calcium 8.3 L (8.4-10.2) mg/dL
[2023-02-13 13:04] VITALS: BP 116/76; PULSE 88; RESP 16; TEMP 98
[2023-02-13] MEDS: INSULIN LISPRO (For Pump) 100 UNIT/ML VIAL SQ-PUMP SCH (13:48)
--- NOTE | 2023-02-13 15:08 | P.PN ---
Subjective Progress Note Date: 02/13/23 Principal diagnosis: Reason for follow-up is bilateral lower extremity cellulitis Patient is a 72-year-old male with a past medical history significant for diabetes mellitus and hypertension presenting to the hospital for evaluation of increasing shortness of breath and bilateral lower extremity swelling, patient be diagnosed with bilateral lower extremity cellulitis. On today's evaluation that is 02/13/2023,Patient remains to be afebrile, the patient is breathing comfortably on room air without need for supplemental oxygen, patient denies having any chest pain shortness of breath patient cough no nausea with no abdominal pain overall swelling and redness to the leg has decreased in intensity, no drainage. The patient did have a white count of 7.0 as of 02/10/2023 creatinine is 1.17 Objective - Vital Signs Vital signs: Vital Signs Temp 98.0 F 02/13/23 12:00 Pulse 88 02/13/23 12:00 Resp 16 02/13/23 12:00 BP 116/76 02/13/23 12:00 Pulse Ox 95 02/13/23 12:00 FiO2 Intake & Output 02/12/23 02/13/23 02/13/23 18:59 06:59 18:59 Intake Total 420 120 Output Total 1 1 Balance 420 119 -1 Weight 149 kg Intake: Oral 420 120 Output: Stool 1 1 Other: Voiding Method Urinal Urinal Urinal # Voids 1 3 2 # Bowel Movements 0 - Exam GENERAL DESCRIPTION: An elderly male lying in bed in no distress RESPIRATORY SYSTEM: Unlabored breathing , decreased breath sounds at bases HEART: S1 S2 regular rate and rhythm , ABDOMEN: Soft , no tenderness EXTREMITIES: Diffuse swelling and some redness to bilateral lower extremity did have some superficial blistering no foul-smelling drainage - Labs CBC & Chem 7: 02/10/23 04:40 02/13/23 07:15 Labs: Abnormal Lab Results - Last 24 Hours (Table) 02/12/23 02/12/23 02/13/23 Range/Units 16:50 20:54 05:57 Sodium (137-145) mmol/L BUN (9-20) mg/dL Glucose (74-99) mg/dL POC Glucose (mg/dL) 188 H 118 H 199 H (70-110) mg/dL Calcium (8.4-10.2) mg/dL 02/13/23 02/13/23 Range/Units 07:15 11:23 Sodium 134 L (137-145) mmol/L BUN 30 H (9-20) mg/dL Glucose 138 H (74-99) mg/dL POC Glucose (mg/dL) 140 H (70-110) mg/dL Calcium 8.3 L (8.4-10.2) mg/dL Assessment and Plan (1) Bilateral lower leg cellulitis Current Visit: Yes Status: Acute Code(s): L03.116 - CELLULITIS OF LEFT LOWER LIMB; L03.115 - CELLULITIS OF RIGHT LOWER LIMB SNOMED Code(s): 609741954 Plan: 1patient with bilateral lower extremity cellulitis in this patient who did have diffuse swelling redness and evidence of fluid overload likely streptococcal disease 2-patient has been advised Bal wrap to both leg from just above the toe to below the knee change daily to keep the swelling down 3-patient has shown clinic improvement and well continue with cefazolin 2 g every 8 hours while inpatient finishing therapy with oral Keflex discussed with admitting physician Dictation was produced using [employer] dictation software. please excuse any grammatical, word or spelling errors. Time with Patient: Less than 30
== END 2023-02-13 15:31 | disposition home health service (06) | DRG 291 ==
LOC: EC 12:45 → 3SCARD 16:06 → OBSVTOIN 02-11 07:29
PROVIDERS: ADMIT Internal Medicine; ATTEND Internal Medicine
DX: I11.0 Hypertensive heart disease with heart failure (principal); I50.23 Acute on chronic systolic (congestive) heart failure; N17.9 Acute kidney failure, unspecified; E87.1 Hypo-osmolality and hyponatremia; L03.115 Cellulitis of right lower limb; L03.116 Cellulitis of left lower limb; L97.919 Non-pressure chronic ulcer of unspecified part of right lower leg with unspecified severity; L97.929 Non-pressure chronic ulcer of unspecified part of left lower leg with unspecified severity; Z68.41 Body mass index [BMI] 40.0-44.9, adult; I27.20 Pulmonary hypertension, unspecified; I83.009 Varicose veins of unspecified lower extremity with ulcer of unspecified site; E66.01 Morbid (severe) obesity due to excess calories; J44.9 Chronic obstructive pulmonary disease, unspecified; E11.9 Type 2 diabetes mellitus without complications; Z79.4 Long term (current) use of insulin; I25.5 Ischemic cardiomyopathy; E78.5 Hyperlipidemia, unspecified; E87.5 Hyperkalemia; I25.10 Atherosclerotic heart disease of native coronary artery without angina pectoris; F41.9 Anxiety disorder, unspecified; G25.81 Restless legs syndrome; G89.29 Other chronic pain; I25.2 Old myocardial infarction; M10.9 Gout, unspecified; Z79.02 Long term (current) use of antithrombotics/antiplatelets; Z79.891 Long term (current) use of opiate analgesic; Z79.899 Other long term (current) drug therapy; Z96.41 Presence of insulin pump (external) (internal); Z95.1 Presence of aortocoronary bypass graft; Z87.891 Personal history of nicotine dependence; Z95.810 Presence of automatic (implantable) cardiac defibrillator; Z95.5 Presence of coronary angioplasty implant and graft; Z96.611 Presence of right artificial shoulder joint; Z82.49 Family history of ischemic heart disease and other diseases of the circulatory system
CPT/HCPCS: 36415; 71046; 80048; 80053; 83605; 83735; 83880; 84132; 84484; 85025; 85027; 85610; 85730; 87636; 93005; 96365; 96366; 96375; 99285